=== PATIENT | male | born 1990 | race African-American/Black ===

== ENCOUNTER 2021-09-02 08:34 | Emergency (ER) | payer OTHER ==
[~2021-09-02] VITALS: Ht 175.3 cm; Wt 81.6 kg
[2021-09-02] MEDS ORDERED: MORPHINE SULFATE 4 MG/ML SYR/VIAL IV ONE (09:30)
[2021-09-02] MEDS ORDERED: ONDANSETRON HCL 4 MG/2 ML VIAL IV ONE (09:30)
[2021-09-02] MEDS ORDERED: LORazepam 2MG/ML-1ML VIAL IV ONE ×2 (09:30→10:30)
[2021-09-02] MEDS ORDERED: SODIUM CHLORIDE 0.9% 1,000 ML IV ONE (09:30)
[2021-09-02] MEDS ORDERED: MORPHINE SULFATE INJECTION 2 MG/ML SYRG IV ONE (10:30)
[2021-09-02 11:12] VITALS: BP 111/77
== END 2021-09-02 11:16 | disposition home or self-care (01) ==
LOC: ER 08:34
DX: R51.9 Headache, unspecified (principal); Z88.8 Allergy status to other drugs, medicaments and biological substances
CPT/HCPCS: 82962; 96361; 96374; 96375; 96376; 99285; J2060; J2270; J2405; J7030

== ENCOUNTER 2021-11-30 07:33 | Emergency (ER) | payer OTHER ==
[2021-11-30 08:14] LABS: Basophils # (auto) 0 10 ^3/uL (0-0.2); Basophils % (auto) 0.2 % (0.0-2.0); Eosinophils # (auto) 0 10 ^3/uL (0-0.8); Eosinophils % (auto) 0.1 % (0.0-7.0); Lymphocytes # (auto) 0.3 10 ^3/uL (0.4-5.4); Monocytes # (auto) 0.2 10 ^3/uL (0-1.3); Red Cell Distribution Width 18.4 % (11.8-14.3); White Blood Cell 6.3 10^3/uL (4.4-10.8)
[2021-11-30 08:16] LABS: Hemoglobin 11.8 g/dL (13.5-17.5); Lymphocytes % (auto) 4.7 % (10.0-50.0); Mean Corpuscular Hemoglobin 21.5 pg (28.0-32.0); Mean Corpuscular Hgb Conc. 30.4 g/dL (32.0-36.0); Mean Corpuscular Volume 70.7 fL (80.0-100.0); Monocytes % (auto) 2.4 % (0.0-12.0); Neutrophils # (auto) 5.8 10 ^3/uL (1.6-8.6); Neutrophils % (auto) 92.6 % (37.0-80.0); Nucleated Red Blood Cells % 0.1 %; Red Blood Cells 5.52 10^6/uL (4.5-5.90)
[2021-11-30 08:33] LABS: Albumin 4.1 g/dL (3.4-5.0); Calcium 9.6 mg/dL (8.5-10.1)
[2021-11-30 08:36] LABS: BUN/Creatinine Ratio 13.1; Bilirubin, Total 0.5 mg/dL (0.2-1.0); Total Protein 9.6 g/dL (6.4-8.2)
[2021-11-30] MEDS ORDERED: ONDANSETRON HCL 4 MG/2 ML VIAL IV ONE ×2 (17:15→20:30)
[2021-11-30] MEDS ORDERED: LORazepam 2MG/ML-1ML VIAL IV ONE (17:15)
[2021-11-30] MEDS ORDERED: HYDROcodone-ACET 10/325MG TAB PO ONE (17:15)
[2021-11-30] MEDS ORDERED: LORazepam 0.5 MG TAB PO ONE (17:30)
[2021-11-30] MEDS ORDERED: fentaNYL CITRATE 100 MCG/2 ML VL IV ONE (20:30)
[2021-11-30] MEDS ORDERED: HYDR-4798 PO (20:51)
[2021-11-30 21:14] VITALS: BP 115/77
== END 2021-11-30 21:27 | disposition home or self-care (01) ==
LOC: ER 07:33
DX: K52.9 Noninfective gastroenteritis and colitis, unspecified (principal); R51.9 Headache, unspecified; C71.7 Malignant neoplasm of brain stem
CPT/HCPCS: 36415; 70450; 74176; 80053; 85025; 96374; 96375; 96376; 99285; J2405; J3010

== ENCOUNTER 2022-01-25 07:08 | Inpatient (IN) | payer OTHER ==
[~2022-01-25] VITALS: Ht 185.4 cm; Wt 78.2 kg
[2022-01-25] VITALS (7 sets, daily range): BP systolic 126–165; BP diastolic 76–92
[~2022-01-25 07:08] MED LIST: HYDR-4798 PO
[2022-01-25 08:46] LABS: Albumin 4.2 g/dL (3.4-5.0); Calcium 9.5 mg/dL (8.5-10.1); Potassium 3.9 mmol/L (3.5-5.1)
[2022-01-25 09:00] LABS: Basophils # (auto) 0 10 ^3/uL (0-0.2); Eosinophils # (auto) 0 10 ^3/uL (0-0.8); Eosinophils % (auto) 0.1 % (0.0-7.0); Hemoglobin 12.1 g/dL (13.5-17.5); Neutrophils # (auto) 5.4 10 ^3/uL (1.6-8.6); White Blood Cell 6.4 10^3/uL (4.4-10.8)
[2022-01-25] MEDS ORDERED: LORazepam 2MG/ML-1ML VIAL IV ONE (09:00)
[2022-01-25] MEDS ORDERED: MORPHINE SULFATE 4 MG/ML SYR/VIAL IV ONE ×2 (09:00→12:00)
[2022-01-25 09:01] LABS: BUN/Creatinine Ratio 12.5; Bilirubin, Total 0.4 mg/dL (0.2-1.0); Total Protein 8.5 g/dL (6.4-8.2)
[2022-01-25 09:02] LABS: Basophils % (auto) 0.5 % (0.0-2.0); Hematocrit 38.1 % (41.0-53.0); Lymphocytes # (auto) 0.6 10 ^3/uL (0.4-5.4); Lymphocytes % (auto) 9.5 % (10.0-50.0); Mean Corpuscular Hemoglobin 23.1 pg (28.0-32.0); Mean Corpuscular Hgb Conc. 31.7 g/dL (32.0-36.0); Mean Corpuscular Volume 73.1 fL (80.0-100.0); Monocytes # (auto) 0.3 10 ^3/uL (0-1.3); Monocytes % (auto) 5.3 % (0.0-12.0); Neutrophils % (auto) 84.6 % (37.0-80.0); Nucleated Red Blood Cells % 0.2 %; Red Blood Cells 5.21 10^6/uL (4.5-5.90); Red Cell Distribution Width 19.6 % (11.8-14.3)
[2022-01-25] MEDS ORDERED: PANTOPRAZOLE 40 MG/10 ML VIAL INJ IV ONE (10:15)
[2022-01-25] MEDS ORDERED: LORazepam 2MG/ML-1ML VIAL IM ONE (12:00)
[2022-01-25] MEDS ORDERED: MORPHINE SULFATE INJ 2 MG/ml SYRG IV PRN (13:45)
[2022-01-25] MEDS ORDERED: NITROGLYCERIN 0.4 MG SL TAB SL PRN (13:45)
[2022-01-25] MEDS: metroNIDAZOLE 500MG/100ML 100 ML IV SCH ×2 (14:15→22:35)
[2022-01-25] MEDS: SODIUM CHLORIDE 0.9% 1,000 ML IV SCH (14:17)
[2022-01-25] MEDS ORDERED: ALPRAZolam 0.5 MG TAB PO PRN (16:00)
[2022-01-25] MEDS ORDERED: MIDAZOLAM HCL 2MG/2ML 2ml VIAL (1mg/ml) IV PRN (16:00)
[2022-01-25] MEDS: LORazepam 2MG/ML-1ML VIAL IV PRN ×2 (16:25→20:06)
[2022-01-25] MEDS: MORPHINE SULFATE INJ 2 MG/ml SYRG IV PRN ×2 (16:26→21:13)
[2022-01-25 16:34] LABS: Urine Bacteria NONE SEEN /hpf (None Seen); Urine Blood Negative /uL (Negative); Urine Mucus FEW (None Seen); Urine Sperm PRESENT /hpf (None Seen); Urine WBC <1 /hpf (0 - 3)
[2022-01-25 16:38] LABS: Urine Specific Gravity > 1.050 (1.001-1.035)
[2022-01-25 16:49] LABS: Cholesterol 138 mg/dL (< 200); HDL Cholesterol 55 mg/dL (40-59); LDL Cholesterol 76 mg/dL (< 100); Triglycerides 85 mg/dL (< 150)
[2022-01-25 17:01] LABS: Amphetamine Screen, Urine NEGATIVE (NEGATIVE); Barbiturate Scree,Urine NEGATIVE (NEGATIVE); Benzodiazephine Screen, Urine POSITIVE (NEGATIVE); Cannabinoid Screen, Urine NEGATIVE (NEGATIVE); Cocaine Screen, Urine NEGATIVE (NEGATIVE); Phencyclidine Screen, Urine NEGATIVE (NEGATIVE)
[2022-01-25 17:09] LABS: Opiate Scree,Urine POSITIVE (NEGATIVE)
[2022-01-25 18:36] LABS: Hemoglobin 11.2 g/dL (13.5-17.5)
[2022-01-25 18:37] LABS: Hematocrit 36.8 % (41.0-53.0)
[2022-01-25] MEDS: ONDANSETRON HCL 4 MG/2 ML VIAL IV PRN (19:58)
[2022-01-25] MEDS: ATORVASTATIN 20 MG TAB PO SCH (22:00)
[2022-01-25] MEDS: PANTOPRAZOLE 40 MG/10 ML VIAL INJ IV SCH (22:35)
[2022-01-26] VITALS (30 sets, daily range): BP systolic 116–154; BP diastolic 54–104
[2022-01-26] MEDS: ONDANSETRON HCL 4 MG/2 ML VIAL IV PRN ×4 (00:53→14:17)
[2022-01-26] MEDS: MORPHINE SULFATE INJ 2 MG/ml SYRG IV PRN ×5 (00:54→19:59)
[2022-01-26] MEDS: LORazepam 2MG/ML-1ML VIAL IV PRN ×6 (02:04→21:18)
[2022-01-26] MEDS: SODIUM CHLORIDE 0.9% 1,000 ML IV SCH ×3 (03:39→15:41)
[2022-01-26 05:00] LABS: Basophils # (auto) 0 10 ^3/uL (0-0.2); Basophils % (auto) 0.1 % (0.0-2.0); Eosinophils # (auto) 0 10 ^3/uL (0-0.8); Hematocrit 41.6 % (41.0-53.0); Hemoglobin 12.4 g/dL (13.5-17.5); Lymphocytes # (auto) 1.4 10 ^3/uL (0.4-5.4); Mean Corpuscular Hgb Conc. 29.8 g/dL (32.0-36.0); Mean Corpuscular Volume 77.4 fL (80.0-100.0); Monocytes # (auto) 0.6 10 ^3/uL (0-1.3); Neutrophils # (auto) 5.6 10 ^3/uL (1.6-8.6); Neutrophils % (auto) 73.9 % (37.0-80.0); Nucleated Red Blood Cells % 0.1 %; Red Blood Cells 5.38 10^6/uL (4.5-5.90); Red Cell Distribution Width 19.8 % (11.8-14.3); White Blood Cell 7.6 10^3/uL (4.4-10.8)
[2022-01-26 05:10] LABS: Albumin 3.6 g/dL (3.4-5.0); BUN/Creatinine Ratio 16.4; Calcium 8.5 mg/dL (8.5-10.1); Potassium 4.1 mmol/L (3.5-5.1)
[2022-01-26 05:13] LABS: Bilirubin, Total 0.4 mg/dL (0.2-1.0)
[2022-01-26] MEDS: metroNIDAZOLE 500MG/100ML 100 ML IV SCH ×3 (05:16→21:17)
[2022-01-26] MEDS ORDERED: NICOTINE 7MG/24HR TOPICAL PATCH TD SCH (10:00)
[2022-01-26] MEDS: PANTOPRAZOLE 40 MG/10 ML VIAL INJ IV SCH ×2 (10:51→21:17)
[2022-01-26] MEDS: ATORVASTATIN 20 MG TAB PO SCH (22:00)
[2022-01-27] VITALS: BP 125/79
[2022-01-27] MEDS: MORPHINE SULFATE INJ 2 MG/ml SYRG IV PRN (00:58)
[2022-01-27 01:00] VITALS: BP 129/78
[2022-01-27 02:05] VITALS: BP 163/96
== END 2022-01-27 02:00 | disposition left against medical advice (07) | DRG 378 ==
LOC: ER 07:08 → TELE 13:44 → DOU IN ICU 21:50
PROVIDERS: ADMIT Registered Nurse; ATTEND Internal Medicine
DX: K92.2 Gastrointestinal hemorrhage, unspecified (principal); G45.9 Transient cerebral ischemic attack, unspecified; Z20.822 Contact with and (suspected) exposure to COVID-19; G89.4 Chronic pain syndrome; F41.9 Anxiety disorder, unspecified; Z53.29 Procedure and treatment not carried out because of patient's decision for other reasons; Z79.899 Other long term (current) drug therapy; Z85.841 Personal history of malignant neoplasm of brain; Z91.041 Radiographic dye allergy status; Z92.21 Personal history of antineoplastic chemotherapy; Z92.3 Personal history of irradiation; Z88.8 Allergy status to other drugs, medicaments and biological substances; Z72.0 Tobacco use; D64.9 Anemia, unspecified
CPT/HCPCS: 36415; 70450; 71275; 80053; 80061; 80307; 81001; 84484; 85014; 85018; 85025; 86850; 86900; 86901; 87081; 93005; 93306; 93886; 96361; 96374; 96375; C9113; G0378; J2405; J3490

== ENCOUNTER 2023-11-10 01:16 | Inpatient (IN) | payer OTHER ==
[~2023-11-10] VITALS: Ht 175.3 cm; Wt 69.4 kg
[2023-11-10 02:51] LABS: Basophils # (auto) 0 10 ^3/uL (0-0.2); Basophils % (auto) 0.6 % (0.0-2.0); Eosinophils # (auto) 0 10 ^3/uL (0-0.8); Eosinophils % (auto) 0.1 % (0.0-7.0); Hematocrit 42.3 % (41.0-53.0); Hemoglobin 13.5 g/dL (13.5-17.5); Lymphocytes # (auto) 1.3 10 ^3/uL (0.4-5.4); Lymphocytes % (auto) 18.2 % (10.0-50.0); Mean Corpuscular Hemoglobin 27.4 pg (28.0-32.0); Mean Corpuscular Hgb Conc. 31.8 g/dL (32.0-36.0); Monocytes # (auto) 0.6 10 ^3/uL (0-1.3); Monocytes % (auto) 8.6 % (0.0-12.0); Neutrophils % (auto) 72.5 % (37.0-80.0); Nucleated Red Blood Cells % 0.1 %; Red Blood Cells 4.92 10^6/uL (4.5-5.90); Red Cell Distribution Width 17.8 % (11.8-14.3); White Blood Cell 6.9 10^3/uL (4.4-10.8)
[2023-11-10] MEDS: ONDANSETRON ODT 4 MG TAB PO ONE (02:57)
[2023-11-10 03:05] LABS: Chloride 104 mmol/L (98-107); Potassium 4.1 mmol/L (3.5-5.1); Sodium 137 mmol/L (136-145)
[2023-11-10 03:06] LABS: Anion Gap 10 (5-15); Calcium 10.5 mg/dL (8.7-10.4); Carbon Dioxide 23 mmol/L (20-30)
[2023-11-10 03:11] LABS: BUN/Creatinine Ratio 16.7 (10.0-20.0); Blood Urea Nitrogen 20 mg/dL (9-23); Glucose 86 mg/dL (74-106)
[2023-11-10] MEDS: MORPHINE SULFATE 4 MG/ML SYR/VIAL IV ONE (07:51)
[2023-11-10] MEDS ORDERED: DOCUSATE SOD 100 MG CAP PO PRN (09:00)
[2023-11-10] MEDS ORDERED: ONDANSETRON HCL 4 MG/2 ML VIAL IV PRN (09:00)
[2023-11-10] MEDS ORDERED: MORPHINE SULFATE INJ 2 MG/ml SYRG IV PRN (09:45)
[2023-11-10] MEDS ORDERED: NITROGLYCERIN 0.4 MG SL TAB SL PRN (09:45)
[2023-11-10] MEDS: SODIUM CHLORIDE 0.9% 1,000 ML IV SCH ×2 (10:09→16:32)
[2023-11-10] MEDS: PANTOPRAZOLE 40 MG/10 ML VIAL INJ IV ONE (10:09)
[2023-11-10] MEDS: HYDROmorphone HCL 2 MG/ML VL/or syr IV ONE (10:12)
[2023-11-10 10:27] VITALS: PULSE 56; RESP 18; O2SAT 95
[2023-11-10 11:20] VITALS: BP 101/71; PULSE 51; RESP 16; TEMP 98.1; O2SAT 98
[2023-11-10] MEDS: LORazepam 0.5 MG TAB PO ONE (11:52)
[2023-11-10 13:00] VITALS: BP 96/62; PULSE 48; RESP 16; TEMP 97.5; O2SAT 99
[2023-11-10] MEDS ORDERED: ALPR2TAB6 PO (13:02)
[2023-11-10] MEDS ORDERED: PANT40T PO (13:02)
[2023-11-10] MEDS ORDERED: OLAN10TA40 PO (13:02)
[2023-11-10] MEDS ORDERED: OXYC30TA PO (13:02)
[2023-11-10] MEDS ORDERED: CYCL-611 PO (13:02)
[2023-11-10] MEDS: SODIUM CHLORIDE 0.9% 1,000 ML IV ONE (14:45)
[2023-11-10 15:47] LABS: Hematocrit 39.6 % (41.0-53.0); Hemoglobin 12.7 g/dL (13.5-17.5)
[2023-11-10 17:00] VITALS: BP 91/46; PULSE 48; RESP 16; TEMP 97.5; O2SAT 99
[2023-11-10] MEDS ORDERED: MET50T PO (17:02)
[2023-11-10] MEDS ORDERED: FENT100D2 TD (17:12)
[2023-11-10 19:45] LABS: Basophils # (auto) 0.1 10 ^3/uL (0-0.2); Basophils % (auto) 1.1 % (0.0-2.0); Eosinophils # (auto) 0 10 ^3/uL (0-0.8); Eosinophils % (auto) 0.5 % (0.0-7.0); Hematocrit 36.3 % (41.0-53.0); Hemoglobin 11.5 g/dL (13.5-17.5); Lymphocytes # (auto) 2.1 10 ^3/uL (0.4-5.4); Mean Corpuscular Hemoglobin 27.3 pg (28.0-32.0); Mean Corpuscular Hgb Conc. 31.8 g/dL (32.0-36.0); Mean Corpuscular Volume 85.9 fL (80.0-100.0); Monocytes # (auto) 0.5 10 ^3/uL (0-1.3); Monocytes % (auto) 10.5 % (0.0-12.0); Neutrophils # (auto) 2.4 10 ^3/uL (1.6-8.6); Neutrophils % (auto) 46.9 % (37.0-80.0); Nucleated Red Blood Cells % 0.1 %; Red Blood Cells 4.22 10^6/uL (4.5-5.90); Red Cell Distribution Width 17.6 % (11.8-14.3); White Blood Cell 5.1 10^3/uL (4.4-10.8)
[2023-11-10 20:13] LABS: Alanine Aminotransferase 10 U/L (7-40); Albumin 3.9 g/dL (3.2-4.8); Alkaline Phosphatase 61 U/L (46-116); Anion Gap 7 (5-15); Aspartate Aminotransferase 11 U/L (13-40); BUN/Creatinine Ratio 13.6 (10.0-20.0); Bilirubin, Total 0.8 mg/dL (0.2-1.0); Blood Urea Nitrogen 16 mg/dL (9-23); Calcium 9.1 mg/dL (8.5-10.1); Carbon Dioxide 24 mmol/L (20-30); Chloride 108 mmol/L (98-107); Glucose 102 mg/dL (74-106); Potassium 3.3 mmol/L (3.5-5.1); Sodium 139 mmol/L (136-145); Total Protein 6.5 g/dL (5.7-8.2)
[2023-11-10 21:00] VITALS: BP 87/47; PULSE 50; RESP 18; TEMP 97.6; O2SAT 99
[2023-11-10] MEDS: HYDROmorphone HCL 2 MG/ML VL/or syr IV PRN (21:11)
[2023-11-11 01:00] VITALS: BP 86/41; PULSE 51; RESP 18; TEMP 97.4; O2SAT 97
[2023-11-11] MEDS: PANTOPRAZOLE 40 MG/10 ML VIAL INJ IV SCH (02:36)
[2023-11-11 05:00] VITALS: BP 87/57; PULSE 53; RESP 19; TEMP 97.4; O2SAT 100
[2023-11-11 06:25] LABS: Basophils # (auto) 0.1 10 ^3/uL (0-0.2); Basophils % (auto) 1.9 % (0.0-2.0); Eosinophils # (auto) 0.1 10 ^3/uL (0-0.8); Eosinophils % (auto) 1.7 % (0.0-7.0); Hematocrit 35.6 % (41.0-53.0); Hemoglobin 11.8 g/dL (13.5-17.5); Lymphocytes # (auto) 1.7 10 ^3/uL (0.4-5.4); Mean Corpuscular Hemoglobin 28.9 pg (28.0-32.0); Mean Corpuscular Hgb Conc. 33.1 g/dL (32.0-36.0); Mean Corpuscular Volume 87.2 fL (80.0-100.0); Monocytes # (auto) 0.4 10 ^3/uL (0-1.3); Monocytes % (auto) 12.8 % (0.0-12.0); Neutrophils # (auto) 1.1 10 ^3/uL (1.6-8.6); Neutrophils % (auto) 32.6 % (37.0-80.0); Nucleated Red Blood Cells % 0.2 %; Red Blood Cells 4.07 10^6/uL (4.5-5.90); White Blood Cell 3.3 10^3/uL (4.4-10.8)
[2023-11-11 06:39] LABS: INR 1.14 (0.9-1.15)
[2023-11-11 06:44] LABS: Alkaline Phosphatase 56 U/L (46-116); Anion Gap 7 (5-15); BUN/Creatinine Ratio 12.8 (10.0-20.0); Blood Urea Nitrogen 14 mg/dL (9-23); Calcium 8.7 mg/dL (8.5-10.1); Carbon Dioxide 25 mmol/L (20-30); Chloride 107 mmol/L (98-107); Glucose 75 mg/dL (74-106); Potassium 3.8 mmol/L (3.5-5.1); Sodium 139 mmol/L (136-145)
[2023-11-11 06:45] LABS: Alanine Aminotransferase < 9 U/L (7-40); Albumin 3.6 g/dL (3.2-4.8); Aspartate Aminotransferase 10 U/L (13-40); Bilirubin, Total 0.8 mg/dL (0.2-1.0); Total Protein 5.9 g/dL (5.7-8.2)
[2023-11-11 08:00] VITALS: PULSE 59; RESP 17; O2SAT 99
[2023-11-11 09:00] VITALS: BP 91/58; PULSE 54; RESP 17; TEMP 97.6; O2SAT 99
[2023-11-11 11:14] VITALS: BP 95/58; PULSE 55; RESP 17
[2023-11-11] MEDS: MORPHINE SULFATE INJ 2 MG/ml SYRG IV PRN (11:14)
== END 2023-11-11 12:48 | disposition left against medical advice (07) | DRG 378 ==
LOC: ER 01:16 → OVERFLOW 09:42 → EAST 11:25
PROVIDERS: ADMIT Nurse Practitioner Family; ATTEND Internal Medicine Geriatric Medicine
DX: K92.2 Gastrointestinal hemorrhage, unspecified (principal); C41.9 Malignant neoplasm of bone and articular cartilage, unspecified; D62 Acute posthemorrhagic anemia; F41.1 Generalized anxiety disorder; I10 Essential (primary) hypertension; E87.6 Hypokalemia; R56.9 Unspecified convulsions; F17.210 Nicotine dependence, cigarettes, uncomplicated; Z53.29 Procedure and treatment not carried out because of patient's decision for other reasons; M54.9 Dorsalgia, unspecified; Z85.841 Personal history of malignant neoplasm of brain; Z88.6 Allergy status to analgesic agent; Z88.8 Allergy status to other drugs, medicaments and biological substances; Z91.09 Other allergy status, other than to drugs and biological substances; Z79.899 Other long term (current) drug therapy; Z79.891 Long term (current) use of opiate analgesic; Z86.73 Personal history of transient ischemic attack (TIA), and cerebral infarction without residual deficits; Z91.041 Radiographic dye allergy status
CPT/HCPCS: 36415; 70450; 71046; 74176; 80048; 80053; 84484; 85014; 85018; 85025; 85610; 93005; 96361; 96374; 96375; 99291; C9113; G0378; Q0162

== ENCOUNTER 2024-05-19 12:04 | Emergency (ER) | payer OTHER ==
[~2024-05-19] VITALS: Ht 182.9 cm; Wt 79.0 kg
[~2024-05-19 12:04] MED LIST changes: +ALPR2TAB6 PO; +CYCL-611 PO; +FENT100D2 TD; -HYDR-4798 PO; +MET50T PO; +OLAN10TA40 PO; +OXYC30TA PO; +PANT40T PO
--- NOTE | 2024-05-19 13:29 | DVH ---
CT HEAD WITHOUT CONTRAST INDICATION: h/o brain ca EXAM DATE: 05/19/2024 01:06 PM COMPARISON: CT HEAD WITHOUT CONTRAST on DOS: 11/10/23, HEAD WITHOUT CONTRAST on DOS: 01/26/22, HEAD WIT HOUT CONTRAST on DOS: 01/25/22 RADIATION DOSE: CTDIvol: 56.73 mGy, DLP: 909.45 mGy*cm PROCEDURE: CT scans of the head were obtained from the vertex to the skull base. Sagittal and coronal reconstructions were provided. All CT scans at this medical facility are performed using dose modulation techniques as appropriate t o a performed exam including the following: Automated exposure control was utilized; adjustment of th e MA and/or KV according to patient size; and use of iterative reconstruction technique. FINDINGS: Post surgical changes from left occipital craniectomy, mastoidectomy and including the julisa ous bone. Metallic material is seen near the left jugular foramen. There is sulcal and ventricular p rominence. The brain shows normal morphology and dailey-white matter differentiation, without intracran ial hemorrhage, extra-axial fluid collection, mass effect or acute large vessel infarct. The ventricl es are normal in size. The basal cisterns are patent. The skull and visible facial bones are intact. The paranasal sinuses, mastoid air cells and middle ear cavities are otherwise well-aerated. The soft tissues of the scalp are unremarkable. IMPRESSION: Stable post surgical changes from left occipital craniectomy, mastoidectomy and including the petrous bone. Metallic material is seen near the left jugular foramen. No acute intracranial abnormality.
[2024-05-19 13:54] LABS: Basophils # (auto) 0.1 10 ^3/uL (0-0.2); Basophils % (auto) 1.2 % (0.0-2.0); Eosinophils # (auto) 0 10 ^3/uL (0-0.8); Eosinophils % (auto) 0.3 % (0.0-7.0); Hematocrit 44.6 % (41.0-53.0); Hemoglobin 14.4 g/dL (13.5-17.5); Lymphocytes # (auto) 1.3 10 ^3/uL (0.4-5.4); Lymphocytes % (auto) 19.9 % (10.0-50.0); Mean Corpuscular Hemoglobin 28.3 pg (28.0-32.0); Mean Corpuscular Hgb Conc. 32.3 g/dL (32.0-36.0); Mean Corpuscular Volume 87.6 fL (80.0-100.0); Monocytes # (auto) 0.7 10 ^3/uL (0-1.3); Monocytes % (auto) 10.8 % (0.0-12.0); Neutrophils # (auto) 4.4 10 ^3/uL (1.6-8.6); Neutrophils % (auto) 67.8 % (37.0-80.0); Nucleated Red Blood Cells % 0.2 %; Platelet Count (auto) 307 10^3/uL (140-450); Red Blood Cells 5.09 10^6/uL (4.5-5.90); Red Cell Distribution Width 16.4 % (11.8-14.3); White Blood Cell 6.5 10^3/uL (4.4-10.8)
[2024-05-19 13:58] LABS: Urine Bacteria None Seen /hpf (None Seen)
[2024-05-19 14:14] LABS: Alanine Aminotransferase 17 U/L (7-40); Albumin 4.8 g/dL (3.2-4.8); Alkaline Phosphatase 95 U/L (46-116); Aspartate Aminotransferase 25 U/L (13-40); BUN/Creatinine Ratio 5.5 (10.0-20.0); Calcium 10.3 mg/dL (8.7-10.4); Carbon Dioxide 28 mmol/L (20-31); Glucose 80 mg/dL (74-106); Magnesium 2.2 mg/dL (1.6-2.6)
[2024-05-19 14:15] LABS: Bilirubin, Total 0.5 mg/dL (0.2-1.0); Total Protein 8.1 g/dL (5.7-8.2)
[2024-05-19 14:17] LABS: Urine Blood Negative /uL (Negative); Urine Clarity Clear (Clear); Urine Color Colorless (Yellow); Urine Protein, UAD Negative (Negative); Urine Specific Gravity 1.005 (1.001-1.035); Urine Squamous Epithelial Cell None Seen /hpf (<5); Urine Urobilinogen Normal (Negative); Urine WBC 1 /hpf (0 - 3)
[2024-05-19 14:24] LABS: Benzodiazephine Screen, Urine Neg (NEGATIVE)
[2024-05-19 14:25] LABS: Opiate Scree,Urine Neg (NEGATIVE)
[2024-05-19 14:26] LABS: Anion Gap 6 (5-15); Chloride 104 mmol/L (98-107); Potassium 4.5 mmol/L (3.5-5.1); Sodium 138 mmol/L (136-145)
[2024-05-19 14:27] LABS: Amphetamine Screen, Urine Neg (NEGATIVE); Barbiturate Scree,Urine Neg (NEGATIVE); Cannabinoid Screen, Urine Neg (NEGATIVE); Cocaine Screen, Urine Neg (NEGATIVE); Phencyclidine Screen, Urine Neg (NEGATIVE)
[2024-05-19 14:27] LABS: Blood Urea Nitrogen 6 mg/dL (9-23)
--- NOTE | 2024-05-19 15:06 | ED.PDOC ---
History of Present Illness HPI Comments HPI: Poor Historian. : 33 Y M, with PMHX of brain, throat, and mouth cancer presents to the ED with CC of withdrawal. Per patient, he has ran out of his current medications Xanax 2mg, oxycodone 30mg, Lyrica 75mg and has been having associated symptoms of nausea and vomiting x1 day. Patient states,that his me dications are prescribed through [facility]; and has experienced similar symptoms in the past when his medications have ran out. Patient denies fever, chills, body aches, or diarrhea. Initial Vital Signs: Temp :97.8 BP:132/90 HR:85 RR:20 SpO2: 96 Past Medical History: brain cancer, throat cancer, mouth cancer Past Surgical History: Brain Surgery Social History: Denies smoking, ETOH, or drug use. Medications: Xanax 2mg, Oxycodone 30mg, Lyrica 75mg Allergies: NKDA REVIEW OF SYSTEMS: CONSTITUTIONAL: Denies acute: fever, diaphoresis, chills, generalized weakness. HEAD: Denies acute: headache, photophobia Eyes: Denies acute: Double vision, vision loss, eye pain, eye discharge. EARS: Denies acute: tinnitus, hearing loss, ear discharge, ear pain, THROAT: Denies acute: sore throat, swelling, difficulty swallowing , pain with swallowing, change in voice. NECK: Denies acute: neck pain, neck swelling, stiff neck. HEART: Denies acute : chest pain, palpitations, LUNGS: Denies acute: SOB, wheezing, cough, hemoptysis ABDOMEN: Denies acute: abdominal pain, diarrhea, melena , hematemesis, hematochezia SKIN: Denies acute: rash, redness, lesions, itchiness. EXTREMITIES: Denies acute: calf pain, numbness, tingling, weakness, denies pain in extremity. Denies acute: Low back pain. Neuro: Denies acute: focal neurological deficit, motor or sensory focal neurological deficit, tremors, seizure like activity, confusion, dizziness, change in mental status, loss of bowel or bladder function, cauda equina like symptoms. : Denies acute: dysuria, hematuria, flank pain, increase in urinary frequency. PSYCH: Denies acute: hallucination, suicidal ideation, homicidal ideation. PHYSICAL EXAM: General: no acute distress, awake and alert. Head: normocephalic, atraumatic. Neck: supple, trachea is midline, no swelling. Throat: Normal phonation. Eyes:, no erythema, no purulent discharge, no proptosis, no icterus. Heart: regular rate, regular rhythm, no significant murmur appreciated. Lungs: no apparent respiratory distress, Able to speak in full sentences. No wheezing, no rhonchi, no crackles. No stridors Clear to auscultation bilaterally. Abdomen: non tender to palpation, non distended, soft, no guarding, no rebound, + bowel sounds. Neuro: Awake, Alert, oriented to name, self, situation, follows commands GCS=15. Speech is normal. Skin: no petechia, no purpura, no cyanosis, non-pale, not jaundice. Lower extremities: --no - Pitting edema no deformity, no focal swelling, no calf TTP. Makes eye contact. moves all four extremities. Ambulating in the ED independently. Chief Complaint: Withdrawal Time Seen by MD: 14:45 Primary Care Provider: UNK NAME Reviewed Notes: Nurses Notes, Medications, Allergies Allergies: Coded Allergies: Acetaminophen (Verified Allergy, Unknown, 09/02/21) Diphenhydramine (Verified Allergy, Unknown, 09/02/21) Uncoded Allergies: BLEACH (Allergy, Unknown, 09/02/21) MRI CONTRAST (Allergy, Unknown, 09/02/21) Home Meds Reported Medications Fentanyl (Fentanyl) 100 Mcg/Hr Dis, 2 PATCH TD Q72HR, DIS APPLY 2 PATCHES TO SKIN ONCE EVERY 3 DAYS. CHANGE PATCH EVERY 72 HOURS AND APPLY NEW PATCHES TO DIFFERENT SKIN SITE. 11/10/23 Metoprolol Tartrate (LOPRESSOR TABLET) 50 Mg Tb, 1 TAB PO BID, TAB 11/10/23 Olanzapine (OLANZAPINE ODT) 10 Mg Tab, 1 TAB PO DAILY 11/10/23 Oxycodone HCl (Oxycodone Hydrochloride) 30 Mg Tab, 1 TAB PO Q4HPRN PRN for PAIN SCALE 1 THRU 6 11/10/23 Alprazolam (Alprazolam) 2 Mg Tab, 1 TAB PO TID PRN for ANXIETY 11/10/23 Pantoprazole Sodium Sesquihydr (Pantoprazole Sodium) 40 Mg Tab, 1 TAB PO BID 11/10/23 Cyclobenzaprine HCl (Cyclobenzaprine Hydrochlo) 10 Mg Tab, 1 TAB PO TID PRN for FOR MUSCLE SPASM 11/10/23 Information Source: Patient Mode of Arrival: Ambulatory Severity: Mild Timing: Days Duration: Intermittent Was a procedure done? Was a procedure done?: No Differential Dx Considerations may include: withdrawal X-Ray, Labs, Meds, VS Vital Signs Date Time Temp Pulse Resp B/P (MAP) Pulse Ox O2 Delivery O2 Flow Rate FiO2 05/19/24 16:16 18 99 Room Air* 0 21 05/19/24 16:00 73 18 113/85 (94) 99 05/19/24 12:46 97.8 85 20 132/90 (104) 96 Lab Test 05/19/24 13:27 05/19/24 00:00 Range/Units White Blood Count 6.5 4.4-10.8 10^3/uL Red Blood Count 5.09 4.5-5.90 10^6/uL Hemoglobin 14.4 13.5-17.5 g/dL Hematocrit 44.6 41.0-53.0 % Mean Corpuscular Volume 87.6 80.0-100.0 fL Mean Corpuscular Hemoglobin 28.3 28.0-32.0 pg Mean Corpuscular Hemoglobin Concent 32.3 32.0-36.0 g/dL Red Cell Distribution Width 16.4 H 11.8-14.3 % Platelet Count 307 140-450 10^3/uL Mean Platelet Volume 9.2 6.9-10.8 fL Neutrophils (%) (Auto) 67.8 37.0-80.0 % Lymphocytes (%) (Auto) 19.9 10.0-50.0 % Monocytes (%) (Auto) 10.8 0.0-12.0 % Eosinophils (%) (Auto) 0.3 0.0-7.0 % Basophils (%) (Auto) 1.2 0.0-2.0 % Neutrophils # (Auto) 4.4 1.6-8.6 10 ^3/uL Lymphocytes # (Auto) 1.3 0.4-5.4 10 ^3/uL Monocytes # (Auto) 0.7 0-1.3 10 ^3/uL Eosinophils # (Auto) 0 0-0.8 10 ^3/uL Basophils # (Auto) 0.1 0-0.2 10 ^3/uL Nucleated Red Blood Cells 0.2 % Sodium Level 138 136-145 mmol/L Potassium Level 4.5 3.5-5.1 mmol/L Chloride Level 104 98-107 mmol/L Carbon Dioxide Level 28 20-31 mmol/L Anion Gap 6 5-15 Blood Urea Nitrogen 6 L 9-23 mg/dL Creatinine 1.09 0.700-1.30 mg/dL Glomerular Filtration Rate Calc 91 >90 mL/min BUN/Creatinine Ratio 5.5 L 10.0-20.0 Serum Glucose 80 74-106 mg/dL Lactic Acid Level 1.2 0.4-2.0 mmol/L Calcium Level 10.3 8.7-10.4 mg/dL Magnesium Level 2.2 1.6-2.6 mg/dL Total Bilirubin 0.5 0.2-1.0 mg/dL Aspartate Amino Transferase (AST) 25 13-40 U/L Alanine Aminotransferase (ALT) 17 7-40 U/L Alkaline Phosphatase 95 46-116 U/L Total Protein 8.1 5.7-8.2 g/dL Albumin 4.8 3.2-4.8 g/dL Urine Color Colorless Yellow Urine Clarity Clear Clear Urine pH 7.0 5.0-9.0 Urine Specific [place] 1.005 1.001-1.035 Urine Protein Negative Negative Urine Ketones Negative Negative Urine Blood Negative Negative /uL Urine Nitrite Negative Negative Urine Bilirubin Negative Negative Urine Urobilinogen Normal Negative mg/dL Urine Leukocyte Esterase Negative Negative /uL Urine RBC 3 0 - 3 /hpf Urine WBC 1 0 - 3 /hpf Urine Squamous Epithelial Cells None seen <5 /hpf Urine Bacteria None seen None Seen /hpf Urine Glucose Normal Normal mg/dL Urine Opiates Screen Neg NEGATIVE Urine Fentanyl Screen Pos NEGATIVE Urine Barbiturates Screen Neg NEGATIVE Urine Phencyclidine Screen Neg NEGATIVE Urine Amphetamines Screen Neg NEGATIVE Urine Benzodiazepines Screen Neg NEGATIVE Urine Cocaine Screen Neg NEGATIVE Urine Cannabinoids Screen Neg NEGATIVE Current Medications Medications (Trade) Dose Ordered Sig/[place] Route Start Time Stop Time Status Last Admin Sodium Chloride 1,000 ml @ 1,000 mls/hr Q1H ONCE IV 05/19/24 13:15 05/19/24 14:14 DC 05/19/24 16:09 Ondansetron HCl (Zofran) 8 mg ONCE ONCE IV 05/19/24 13:15 05/19/24 13:16 DC 05/19/24 16:09 Alprazolam (Xanax Tablet) 1 mg ONCE ONCE PO 05/19/24 15:30 05/19/24 15:42 DC 05/19/24 16:10 Pregabalin (Lyrica Capsule) 75 mg ONCE ONCE PO 05/19/24 15:30 05/19/24 15:42 DC 05/19/24 16:09 [place] [address] Ph: [phone] DIAGNOSTIC IMAGING Diagnostic Imaging Report : [id number] Signed PATIENT: HUNTER ANG,WILLIEACCT: [id number] UNIT: [id number] : 1990 LOC: ER ROOM / BED: / AGE / SEX: 33 / M ADM STATUS: REG ER SERVICE 1304 ORDERING PHYSICIAN: ROLANDA ABEL DO PROCEDURE(s): HWOCT - HEAD WITHOUT CONTRAST REASON: h/o brain ca ORDER NUMBER(s): [id number], ACCESSION NUMBER(s): [id number] CT HEAD WITHOUT CONTRAST INDICATION: h/o brain ca EXAM DATE: 05/19/2024 01:06 PM COMPARISON: CT HEAD WITHOUT CONTRAST on DOS: 11/10/23, HEAD WITHOUT CONTRAST on DOS: 01/26/22, HEAD WITHOUT CONTRAST on DOS: 01/25/22 RADIATION DOSE: CTDIvol: 56.73 mGy, DLP: 909.45 mGy*cm PROCEDURE: CT scans of the head were obtained from the vertex to the skull base. Sagittal and coronal reconstructions were provided. All CT scans at this medical facility are performed using dose modulation techniques as appropriate to a performed exam including the following: Automated exposure control was utilized; adjustment of the MA and/or KV according to patient size; and use of iterative reconstruction technique. FINDINGS: Post surgical changes from left occipital craniectomy, mastoidectomy and including the petrous bone. Metallic material is seen near the left jugular foramen. There is sulcal and ventricular prominence. The brain shows normal morphology and dailey-white matter differentiation, without intracranial hemorrhage, extra-axial fluid collection, mass effect or acute large vessel infarct. The ventricles are normal in size. The basal cisterns are patent. The skull and visible facial bones are intact. The paranasal sinuses, mastoid air cells and middle ear cavities are otherwise well-aerated. The soft tissues of the scalp are unremarkable. IMPRESSION: Stable post surgical changes from left occipital craniectomy, mastoidectomy and including the petrous bone. Metallic material is seen near the left jugular foramen. No acute intracranial abnormality. ATED BY: JERMAIN WHITAKER MD DICTATED DATE/TIME: 05/19/241327 SIGNED BY: JERMAIN WHITAKER MD SIGNED DATE/TIME: 05/19/241327 CC: Time of 1ST Reevaluation: 15:25 Reevaluation 1ST: Unchanged Patient Education/Counseling: Diagnosis, Treatment Family Education/Counseling: No Family Present Additional Information [place] [address] Ph: [phone] DIAGNOSTIC IMAGING Diagnostic Imaging Report : [id number] Signed PATIENT: HUNTER ANG,SHELBIEACCT: [id number] UNIT: [id number] : 1990 LOC: ER ROOM / BED: / AGE / SEX: 33 / M ADM STATUS: REG ER SERVICE 1304 ORDERING PHYSICIAN: ROLANDA ABEL DO PROCEDURE(s): HWOCT - HEAD WITHOUT CONTRAST REASON: h/o brain ca ORDER NUMBER(s): [id number], ACCESSION NUMBER(s): [id number] CT HEAD WITHOUT CONTRAST INDICATION: h/o brain ca EXAM DATE: 05/19/2024 01:06 PM COMPARISON: CT HEAD WITHOUT CONTRAST on DOS: 11/10/23, HEAD WITHOUT CONTRAST on DOS: 01/26/22, HEAD WITHOUT CONTRAST on DOS: 01/25/22 RADIATION DOSE: CTDIvol: 56.73 mGy, DLP: 909.45 mGy*cm PROCEDURE: CT scans of the head were obtained from the vertex to the skull base. Sagittal and coronal reconstructions were provided. All CT scans at this medical facility are performed using dose modulation techniques as appropriate to a performed exam including the following: Automated exposure control was utilized; adjustment of the MA and/or KV according to patient size; and use of iterative reconstruction technique. FINDINGS: Post surgical changes from left occipital craniectomy, mastoidectomy and including the petrous bone. Metallic material is seen near the left jugular foramen. There is sulcal and ventricular prominence. The brain shows normal morphology and dailey-white matter differentiation, without intracranial h emorrhage, extra-axial fluid collection, mass effect or acute large vessel infarct. The ventricles are normal in size. The basal cisterns are patent. The skull and visible facial bones are intact. The paranasal sinuses, mastoid air cells and middle ear cavities are otherwise well-aerated. The soft tissues of the scalp are unremarkable. IMPRESSION: Stable post surgical changes from left occipital craniectomy, mastoidectomy and including the petrous bone. Metallic material is seen near the left jugular for amen. No acute intracranial abnormality. ATED BY: JERMAIN WHITAKER MD DICTATED DATE/TIME: 05/19/24 1328 SIGNED BY: JERMAIN WHITAKER MD SIGNED DATE/TIME: 05/19/24 1328 CC: Departure 1 Departure Time of Disposition: 16:15 Impression: Primary Impression: Nausea and vomiting Additional Impression: Withdrawal complaint Disposition: HOME / SELF CARE / HOMELESS Condition: Stable Additional Instructions: Additional discharge instructions: You MUST follow-up with your primary care/family doctor in 1 to 2 days. If you are unable to see your primary care/family doctor, please return to our emergency room for re-assessment and re-evaluation in 1 to 2 days. Return to the emergency room here in our facility or to the nearest ER [facility] if your symptoms change or worsen. CONSULTATIONS: you MUST Follow-up for consultation as soon as possible with: and neurology and neurosurgery. You MUST call the consultants office yourself to make an appointment. You may need to arrange that through your insurance and/or your primary/family doctor. If you are unable to see the risk management consultant in 1 to 2 days, you must return to our emergency room (or any other ER of your choice) for re-assessment and re- evaluation. Adequate fluid hydration. Below is a copy of your radiological report for follow up: Discharged With: Self Critical Care Note Critical Care Time?: No Stability Stability form required: No Heart Score Heart Score: Heart Score Response (Comments) Value History N/A 0 EKG N/A 0 Age N/A 0 Risk Factors N/A 0 Troponin N/A 0 Total 0 I personally scribed for ROLANDA ABEL DO ([email or web address]) on 05/19/24 at 15:06. Electronically submitted by Angélica Macedo ([email or web address]). I personally scribed for ROLANDA ABEL DO ([email or web address]) on 05/19/24 at 15:17. Electronically submitted by Angélica Macedo ([email or web address]). I personally scribed for ROLANDA ABEL DO ([email or web address]) on 05/19/24 at 15:18. Katelynn ctronically submitted by Angélica Macedo ([email or web address]). I personally scribed for ROLANDA ABEL DO ([email or web address]) on 05/19/24 at 16:10. Electron ically submitted by Angélica Macedo ([email or web address]). I personally scribed for ROLANDA ABEL DO ([email or web address]) on 05/19/24 at 16:12. Electronically submitted by Angélica Macedo ([email or web address]). ROLANDA ABEL DO May 19, 2024 15:06
[2024-05-19 16:00] VITALS: BP 113/85; PULSE 73
[2024-05-19] MEDS: SODIUM CHLORIDE 0.9% 1,000 ML IV ONE (16:09)
[2024-05-19] MEDS: ONDANSETRON HCL 4 MG/2 ML VIAL IV ONE (16:09)
[2024-05-19] MEDS: PREGABALIN CAPSULE 75 MG CAP PO ONE (16:09)
[2024-05-19] MEDS: ALPRAZolam 0.5 MG TAB PO ONE (16:10)
[2024-05-19 16:16] VITALS: RESP 18; O2SAT 99
[2024-05-19] MEDS: oxyCODONE ER 10 MG TAB PO ONE (17:04)
== END 2024-05-19 17:55 | disposition home or self-care (01) ==
LOC: ER 12:07
DX: F19.239 Other psychoactive substance dependence with withdrawal, unspecified (principal); R11.2 Nausea with vomiting, unspecified; R51.9 Headache, unspecified; Z79.899 Other long term (current) drug therapy; Z85.9 Personal history of malignant neoplasm, unspecified
CPT/HCPCS: 36415; 70450; 80053; 80307; 81001; 83605; 83735; 85025; 96361; 96374; 99285; J2405; J7030

== ENCOUNTER 2024-07-16 17:42 | Inpatient (IN) | payer OTHER, MEDICAID ==
[~2024-07-16] VITALS: Ht 177.8 cm; Wt 69.2 kg
[2024-07-16 18:12] LABS: Urine Bacteria None Seen /hpf (None Seen)
[2024-07-16 18:33] LABS: Urine Blood Negative /uL (Negative); Urine Clarity Clear (Clear); Urine Color Yellow (Yellow); Urine Mucus FEW (None Seen); Urine Protein, UAD 1+ (Negative); Urine Specific Gravity 1.039 (1.001-1.035); Urine Squamous Epithelial Cell None Seen /hpf (<5); Urine Urobilinogen Normal (Negative); Urine WBC 2 /HPF (0-3)
[2024-07-16 18:56] LABS: Basophils # (auto) 0 10 ^3/uL (0-0.2); Basophils % (auto) 0.1 % (0.0-2.0); Eosinophils # (auto) 0 10 ^3/uL (0-0.8); Eosinophils % (auto) 0.2 % (0.0-7.0); Hematocrit 46.3 % (41.0-53.0); Hemoglobin 14.4 g/dL (13.5-17.5); Lymphocytes # (auto) 1.3 10 ^3/uL (0.4-5.4); Lymphocytes % (auto) 10.5 % (10.0-50.0); Mean Corpuscular Hemoglobin 26.9 pg (28.0-32.0); Mean Corpuscular Hgb Conc. 31.1 g/dL (32.0-36.0); Mean Corpuscular Volume 86.8 fL (80.0-100.0); Monocytes # (auto) 0.8 10 ^3/uL (0-1.3); Monocytes % (auto) 6.7 % (0.0-12.0); Neutrophils # (auto) 10.2 10 ^3/uL (1.6-8.6); Neutrophils % (auto) 82.5 % (37.0-80.0); Nucleated Red Blood Cells % 0.2 %; Platelet Count (auto) 256 10^3/uL (140-450); Red Blood Cells 5.33 10^6/uL (4.5-5.90); Red Cell Distribution Width 17.9 % (11.8-14.3); White Blood Cell 12.3 10^3/uL (4.4-10.8)
--- NOTE | 2024-07-16 19:06 | DVH ---
EXAM: XY CHEST XRAY 1 VIEW TECHNIQUE: Single frontal chest radiograph CLINICAL HISTORY: cp COMPARISON: None Findings/Impression: Frontal chest radiograph demonstrates no acute osseous or superficial soft tissue abnormalities. The trachea is midline. The cardiac silhouette and mediastinum are within normal limits. No pneumothorax, pleural effusions, or consolidations.
--- NOTE | 2024-07-16 19:13 | DVH ---
Exam: CT CT AB PEL WO CON-NO ORAL OR IV History: hematemesis Comparison Study: CT CT AB PEL WO CON-NO ORAL OR IV on DOS: 11/10/23 Technique: Multidetector spiral CT of the abdomen was performed from lung bases to pubic symphysis. Imaging was performed without IV contrast. Axial, coronal and sagittal multiplanar reformats were ob tained from the axial data set by the technologist. Radiation Dose : 1. Abdomen/Pelvis: CTDIvol 12.5 mGy, DLP 658 mGy*cm. Findings: Evaluation of solid organs is limited due to lack of intravenous contrast use. Lung Bases: There is atelectasis/ consolidation in the right middle lobe. Minimal linear atelectasis in the left lower lobe. Visualized heart is unremarkable. Liver: The liver is normal in size. Mild focal fatty infiltration along the falciform ligament. Gallbladder and Biliary Tree: Unremarkable Spleen: Unremarkable Pancreas: The pancreas is grossly normal in appearance. Adrenal Glands: Unremarkable Kidneys: Kidneys are grossly normal without calculi or hydronephrosis. Bladder: Grossly unremarkable for degree of distention. Bowel: The stomach is grossly normal in appearance. Small bowel and colon are normal in caliber and d istribution. Mild wall thickening in the descending colon is likely related to poor distention. Ira l appendix is visualized in the right lower quadrant without findings of appendicitis. Ascites: Absent Lymphadenopathy: No mesenteric, retroperitoneal or periportal lymphadenopathy. Abdominal Wall and Mesentery: Loss of subcutaneous fat in the anterior abdominal wall in the left low er quadrant of the abdomen is unchanged and may be related to a prior procedure. Vasculature: The visualized abdominal aorta is normal in size and caliber. Evaluation of abdominal a nd pelvic vessels is limited due to lack of intravenous contrast. Pelvic Organs: Unremarkable Musculoskeletal: No aggressive focal bony lesions, acute fractures or dislocation. IMPRESSION: Evaluation is limited due to lack of intravenous contrast. 1. No evidence of acute abdominal or pelvic findings. 2. Mild atelectasis/consolidation in the right middle lobe. Radiation optimization: All CT scans at this facility use at least one of these dose optimization kishor hniques: automated exposure control mA and/or kV adjustment per patient size (includes targeted exam s where dose is matched to clinical indication) or iterative reconstruction.
[2024-07-16 19:28] LABS: Alanine Aminotransferase 17 U/L (7-40); Alkaline Phosphatase 84 U/L (46-116); Anion Gap 15 (5-15); Aspartate Aminotransferase 18 U/L (13-40); BUN/Creatinine Ratio 11.3 (10.0-20.0); Bilirubin, Total 0.7 mg/dL (0.2-1.0); Blood Urea Nitrogen 12 mg/dL (9-23); Carbon Dioxide 21 mmol/L (20-31); Glucose 87 mg/dL (74-106); Lipase 35 U/L (12-53); Sodium 143 mmol/L (136-145)
[2024-07-16 19:29] LABS: Albumin 5.3 g/dL (3.2-4.8); Calcium 10.7 mg/dL (8.7-10.4); Chloride 107 mmol/L (98-107); Potassium 3.2 mmol/L (3.5-5.1); Total Protein 8.8 g/dL (5.7-8.2)
--- NOTE | 2024-07-16 19:52 | ED.PDOC ---
GI ASSESSMENT HPI Comments 33 y.o male with PMHx of brain and neck cancer, presents to the ED for a chief complaint of dark red hematemesis associated with anxiety that started one day ago. Patient reports having about 10+ episodes of hematemesis since yesterday and is now experiencing central chest pain described as a burning and throbbing sensation. Patient reports being on palliative care for his cancer diagnoses and states he has been unable to take his medications today due to the vomiting. He denies any SOB, diarrhea, fever or chills. Patient has been seen for same complaint at this ED in May of 2023, was admitted by refused EGD and left AMA. Chief Complaint: Nausea/Vomiting Time Seen by MD: 18:30 Primary Care Provider: pt does not remember name Reviewed Notes: Nurses Notes, Medications, Allergies Allergies: Coded Allergies: Acetaminophen (Verified Allergy, Unknown, 09/02/21) Diphenhydramine (Verified Allergy, Unknown, 09/02/21) Uncoded Allergies: BLEACH (Allergy, Unknown, 09/02/21) MRI CONTRAST (Allergy, Unknown, 09/02/21) Home Meds Reported Medications Fentanyl (Fentanyl) 100 Mcg/Hr Dis, 2 PATCH TD Q72HR, DIS APPLY 2 PATCHES TO SKIN ONCE EVERY 3 DAYS. CHANGE PATCH EVERY 72 HOURS AND APPLY NEW PATCHES TO DIFFERENT SKIN SITE. 11/10/23 Metoprolol Tartrate (LOPRESSOR TABLET) 50 Mg Tb, 1 TAB PO BID, TAB 11/10/23 Olanzapine (OLANZAPINE ODT) 10 Mg Tab, 1 TAB PO DAILY 11/10/23 Oxycodone HCl (Oxycodone Hydrochloride) 30 Mg Tab, 1 TAB PO Q4HPRN PRN for PAIN SCALE 1 THRU 6 11/10/23 Alprazolam (Alprazolam) 2 Mg Tab, 1 TAB PO TID PRN for ANXIETY 11/10/23 Pantoprazole Sodium Sesquihydr (Pantoprazole Sodium) 40 Mg Tab, 1 TAB PO BID 11/10/23 Cyclobenzaprine HCl (Cyclobenzaprine Hydrochlo) 10 Mg Tab, 1 TAB PO TID PRN for FOR MUSCLE SPASM 11/10/23 Information Source: Patient Mode of Arrival: Ambulatory Timing: Days (1) Duration: Since onset Quality: Aching Vomitus: Bloody Stool: Normal Severity: Moderate Recent: None Recent Hx of: None Pain Location: Diffuse Modifying Factors: Nothing Associated sign and symptoms: Hematemesis Past Medical History PAST MEDICAL HISTORY: Cancer (brain and neck ) Surgical History (Other): brain Family History Family History: Reviewed,noncontributory to illness Social History Smoker: Cigarettes Alcohol: Denies ETOH Use Drugs: Denies Drug Use Lives In: Home Constitutional: denies: chills, diaphoresis, fatigue, fever, malaise, sweats, weakness, others EENTM: denies: blurred vision, double vision, ear bleeding, ear discharge, ear drainage, ear pain, ear ringing, eye pain, eye redness, hearing loss, mouth pain, mouth swelling, nasal discharge, nose bleeding, nose congestion, nose pain, photophobia, tearing, throat pain, throat swelling, voice changes, others Respiratory: denies: cough, hemoptysis, orthopnea, SOB at rest, shortness of breath, SOB with excertion, stridor, wheezing, others Cardiovascular: reports: chest pain; denies: dizzy spells, diaphoresis, Dyspnea on exertion, edema, irregular heart beat, left arm pain, lightheadedness, palpitations, PND, syncope, others Gastrointestinal: reports: hematemesis, nausea; denies: abdomen distended, abdominal pain, blood streaked bowels, constipated, diarrhea, dysphagia, difficulty swallowing, melena, poor appetite, poor fluid intake, rectal bleeding, rectal pain, vomiting, others Genitourinary: denies: burning, dysuria, flank pain, frequency, hematuria, incontinence, penile discharge, penile sore, pain, testicle pain, testicle swelling, urgency, others Neurological: reports: headache; denies: dizziness, fainting, left sided numbness, left sided weakness, numbness, paresthesia, pre-existing deficit, right sided numbness, right sided weakness, seizure, speech problems, tingling, tremors, weakness, others Musculoskeletal: denies: back pain, gout, joint pain, joint swelling, muscle pain, muscle stiffness, neck pain, others Integumetry: denies: bruises, change in color, change in hair/nails, dryness, laceration, lesions, lumps, rash, wounds, others Allergic/Immunocompromised: denies: Difficulty Healing, Frequent Infections, Hives, Itching, others Hematologic/Lymphatic: denies: anemia, blood clots, easy bleeding, easy bruising, swollen glands, others Endocrine: denies: excessive hunger, excessive sweating, excessive thirst, excessive urination, flushing, intolerance to cold, intolerance to heat, unexplained weight gain, unexplained weight loss, others Psychiatric: reports: anxiety; denies: bipolar disorder, depression, hopeless, panic disorder, schizophrenia, sleepless, suicidal, others All Other Systems: Reviewed and Negative Physical Exam General Appearance: Mild Distress HEENT: Other (moist mucous membranes) Neck: Full Range of Motion, Normal Inspection Respiratory: Chest Non-Tender, Lungs Clear, No Accessory Muscle Use, No Respiratory Distress, Normal Breath Sounds Cardiovascular: No Edema, No JVD, Regular Rate/Rhythm Breast Exam: Deferred Gastrointestinal: Epigastric, Soft, Tenderness Genitalia: Deferred Pelvic: Deferred Rectal: Deferred Extremities: Normal inspection, Normal range of motion, Non-tender, No pedal edema Neurologic: Alert (Oriented x4), Normal Affect, Other (Anxious. Ambulatory.) Cerebellar Function: NOT DONE Reflexes: NOT DONE Skin: Dry, Pallor, Warm Lymphatic: NOT DONE EKG EKG : Comments Sinus rhythm, rate 74, normal intervals, normal axis, possible right ventricular conduction delay, nonspecific T change. Was a procedure done? Was a procedure done?: No GI differential Dx Differential Diagnosis: Gastritis/PUD, Gastroenteritis, GI hemorrhage, Inflammatory BD, Ischemic Bowel, Dehydration, Electrolyte Imbalance, Food Poisoning, Bacterial, Viral, Hypovolemia, Renal Failure, Anemia, Esophageal Varicies, Stress Ulcer X-Ray, Labs, Meds, VS Vital Signs Date Time Temp Pulse Resp B/P (MAP) Pulse Ox O2 Delivery O2 Flow Rate FiO2 07/16/24 19:51 74 07/16/24 18:00 98.2 70 17 120/95 (103) 98 Lab Test 07/16/24 19:36 07/16/24 18:22 07/16/24 17:07 Range/Units Troponin I High Sensitivity 3 L 3 L </=54 ng/L B-Type Natriuretic Peptide 8.48 0-100 pg/mL White Blood Count 12.3 H 4.4-10.8 10^3/uL Red Blood Count 5.33 4.5-5.90 10^6/uL Hemoglobin 14.4 13.5-17.5 g/dL Hematocrit 46.3 41.0-53.0 % Mean Corpuscular Volume 86.8 80.0-100.0 fL Mean Corpuscular Hemoglobin 26.9 L 28.0-32.0 pg Mean Corpuscular Hemoglobin Concent 31.1 L 32.0-36.0 g/dL Red Cell Distribution Width 17.9 H 11.8-14.3 % Platelet Count 256 140-450 10^3/uL Mean Platelet Volume 9.3 6.9-10.8 fL Neutrophils (%) (Auto) 82.5 H 37.0-80.0 % Lymphocytes (%) (Auto) 10.5 10.0-50.0 % Monocytes (%) (Auto) 6.7 0.0-12.0 % Eosinophils (%) (Auto) 0.2 0.0-7.0 % Basophils (%) (Auto) 0.1 0.0-2.0 % Neutrophils # (Auto) 10.2 H 1.6-8.6 10 ^3/uL Lymphocytes # (Auto) 1.3 0.4-5.4 10 ^3/uL Monocytes # (Auto) 0.8 0-1.3 10 ^3/uL Eosinophils # (Auto) 0 0-0.8 10 ^3/uL Basophils # (Auto) 0 0-0.2 10 ^3/uL Nucleated Red Blood Cells 0.2 % Sodium Level 143 136-145 mmol/L Potassium Level 3.2 L 3.5-5.1 mmol/L Chloride Level 107 98-107 mmol/L Carbon Dioxide Level 21 20-31 mmol/L Anion Gap 15 5-15 Blood Urea Nitrogen 12 9-23 mg/dL Creatinine 1.06 0.700-1.30 mg/dL Glomerular Filtration Rate Calc 94 >90 mL/min BUN/Creatinine Ratio 11.3 10.0-20.0 Serum Glucose 87 74-106 mg/dL Lactic Acid Level 1.8 0.4-2.0 mmol/L Calcium Level 10.7 H 8.7-10.4 mg/dL Total Bilirubin 0.7 0.2-1.0 mg/dL Aspartate Amino Transferase (AST) 18 13-40 U/L Alanine Aminotransferase (ALT) 17 7-40 U/L Alkaline Phosphatase 84 46-116 U/L Total Protein 8.8 H 5.7-8.2 g/dL Albumin 5.3 H 3.2-4.8 g/dL Lipase 35 12-53 U/L Urine Color Yellow Yellow Urine Clarity Clear Clear Urine pH 7.0 5.0-9.0 Urine Specific [place] 1.039 H 1.001-1.035 Urine Protein 1+ H Negative Urine Ketones 1+ H Negative Urine Blood Negative Negative /uL Urine Nitrite Negative Negative Urine Bilirubin Negative Negative Urine Urobilinogen Normal Negative mg/dL Urine Leukocyte Esterase Negative Negative /uL Urine RBC 1 0 - 3 /hpf Urine Microscopic WBC 2 0-3 /HPF Urine Squamous Epithelial Cells None seen <5 /hpf Urine Bacteria None seen None Seen /hpf Urine Mucus Few None Seen Urine Glucose Normal Normal mg/dL [place] [address] Ph: [phone] DIAGNOSTIC IMAGING Diagnostic Imaging Report : [id number] Signed PATIENT: ARGELIA HARRISON IIICCT: [id number] UNIT: [id number] : 1990 LOC: ER ROOM / BED: / AGE / SEX: 33 / M ADM STATUS: REG ER SERVICE [id number] ORDERING PHYSICIAN: MAGDA OTTO MD PROCEDURE(s): ABPL - CT AB PEL WO CON-NO ORAL OR IV REASON: hematemesis ORDER NUMBER(s): [id number], ACCESSION NUMBER(s): [id number] Exam: CT CT AB PEL WO CON-NO ORAL OR IV History: hematemesis Comparison Study: CT CT AB PEL WO CON-NO ORAL OR IV on DOS: 11/10/23 Technique: Multidetector spiral CT of the abdomen was performed from lung bases to pubic symphysis. Imaging was performed without IV contrast. Axial, coronal and sagittal multiplanar reformats were obtained from the axial data set by the technologist. Radiation Dose : 1. Abdomen/Pelvis: CTDIvol 12.5 mGy, DLP 658 mGy*cm. Findings: Evaluation of solid organs is limited due to lack of intravenous contrast use. Lung Bases: There is atelectasis/ consolidation in the right middle lobe. Minimal linear atelectasis in the left lower lobe. Visualized heart is unremarkable. Liver: The liver is normal in size. Mild focal fatty infiltration along the falciform ligament. Gallbladder and Biliary Tree: Unremarkable Spleen: Unremarkable Pancreas: The pancreas is grossly normal in appearance. Adrenal Glands: Unremarkable Kidneys: Kidneys are grossly normal without calculi or hydronephrosis. Bladder: Grossly unremarkable for degree of distention. Bowel: The stomach is grossly normal in appearance. Small bowel and colon are normal in caliber and distribution. Mild wall thickening in the descending colon is likely related to poor distention. Normal appendix is visualized in the right lower quadrant without findings of appendicitis. Ascites: Absent Lymphadenopathy: No mesenteric, retroperitoneal or periportal lymphadenopathy. Abdominal Wall and Mesentery: Loss of subcutaneous fat in the anterior abdominal wall in the left lower quadrant of the abdomen is unchanged and may be related to a prior procedure. Vasculature: The visualized abdominal aorta is normal in size and caliber. Evaluation of abdominal and pelvic vessels is limited due to lack of intravenous contrast. Pelvic Organs: Unremarkable Musculoskeletal: No aggressive focal bony lesions, acute fractures or dislocation. IMPRESSION: Evaluation is limited due to lack of intravenous contrast. 1. No evidence of acute abdominal or pelvic findings. 2. Mild atelectasis/consolidation in the right middle lobe. Radiation optimization: All CT scans at this facility use at least one of these dose optimization techniques: automated exposure control mA and/or kV adjustment per patient size (includes targeted exams where dose is matched to clinical indication) or iterative reconstruction. ATED BY: ACE MERCER DO DICTATED DATE/TIME: 07/16/241909 SIGNED BY: ACE MERCER DO SIGNED DATE/TIME: 07/16/241909 CC: [place] [address] Ph: [phone] DIAGNOSTIC IMAGING Diagnostic Imaging Report : [id number] Signed PATIENT: ARGELIA HARRISON IIICCT: [id number] UNIT: [id number] : 1990 LOC: ER ROOM / BED: / AGE / SEX: 33 / M ADM STATUS: REG ER SERVICE [id number] ORDERING PHYSICIAN: MAGDA OTTO MD PROCEDURE(s): CXR1 - CHEST XRAY 1 VIEW REASON: cp ORDER NUMBER(s): [id number], ACCESSION NUMBER(s): [id number] EXAM: XY CHEST XRAY 1 VIEW TECHNIQUE: Single frontal chest radiograph CLINICAL HISTORY: cp COMPARISON: None Findings/Impression: Frontal chest radiograph demonstrates no acute osseous or superficial soft tissue abnormalities. The trachea is midline. The cardiac silhouette and mediastinum are within normal limits. No pneumothorax, pleural effusions, or consolidations. ATED BY: RETA LANDIS DO DICTATED DATE/TIME: 07/16/241902 SIGNED BY: RETA LANDIS DO SIGNED DATE/TIME: 07/16/241902 CC: X-Ray, Labs, Meds, VS Comment 33 y.o male with PMHx of brain and neck cancer, presents to the ED for a chief complaint of dark red hematemesis associated with anxiety that started one day ago. Vitals remarkable for BP 120/95 Exam remarkable for epigastric tenderness to palpation Rhythm strip independently interpreted by me: Sinus rhythm, rate 70, no ectopy. Chest x-ray Findings/Impression: Frontal chest radiograph demonstrates no acute osseous or superficial soft tis jass abnormalities. The trachea is midline. The cardiac silhouette and mediastinum are within normal limits. No pneumothorax, pleural effusions, or consolidations. CT abdomen and pelvis IMPRESSION: Evaluation is limited due to lack of intravenous contrast. 1. No evidence of acute abdominal or pelvic findings. 2. Mild atelectasis/consolidation in the right middle lobe. CBC remarkable for WBC 12.3, H&H are normal at 14.4 and 46.3, metabolic panel remarkable for potassium 3.2, BNP and 2 serial troponins negative, UA remarkable for protein and ketones Patient treated with the following in the ED: 1 L 0.9 normal saline IV bolus, morphine 4 mg IV, Zofran 4 mg IV, Ativan 1 mg IV, Protonix 40 mg IV, effervescent potassium 50 mEq p.o. On re-evaluation, patient states nausea has improved but he is having severe burning mid chest pain. Plan is to admit the patient for GI evaluation and emesis control. Time of 1ST Reevaluation: 19:43 Reevaluation 1ST: Unchanged Patient Education/Counseling: Diagnosis, Treatment, Prognosis Family Education/Counseling: No Family Present Departure 1 Departure Time of Disposition: 20:32 Impression: Primary Impression: Hematemesis Qualified Codes: K92.0 - Hematemesis Additional Impression: Chest pain Qualified Codes: R07.9 - Chest pain, unspecified Disposition: 09 ADMITTED INPATIENT Admit to: Tele Condition: Guarded Critical Care Note Critical Care Time?: No Stability Stability form required: No Heart Score Heart Score: Heart Score Response (Comments) Value History Moderate Suspicious 1 EKG Repolarization Disturb 1 Age <45 0 Risk Factors 1 or 2 risk factors 1 Troponin Normal limit 0 Total 3 I personally scribed for MAGDA OTTO MD ([facility]) on 07/16/24 at 19:52. Electronically submitted by Maria Elena Quintanilla ([facility]). I personally scribed for MAGDA OTTO MD ([facility]) on 07/16/24 at 19:53. Electronically submitted by Maria Elena Quintanilla ([facility]). MAGDA OTTO MD Jul 16, 2024 19:52
[2024-07-16] MEDS ORDERED: oxyCODONE HCL 5MG TAB PO PRN (20:45)
--- NOTE | 2024-07-16 21:11 | DVHHPRES ---
History of Present Illness Resident Creating Document: [facility] RESIDENT Reason for Visit: hematemesis History of Present Illness 33-year-old male with a past medical history of brain cancer (status post craniectomy in 2014, followed by chemotherapy and radiation) , who presents to the ED with 10+ episodes of hematemesis since yesterday, along with central chest pain (radiated to epigastric region) described as a burning and throbbing sensation. The patient denies shortness of breath, diarrhea, fever, or chills. He reports anxiety, which he believes may have contributed to the symptoms. Upon examination, he had a bag containing vomit that appeared to be clear liquid without blood. He states that he has been following up at [facility], with his last visit being last year, where he was told he needed another surgery. A CT scan in May reportedly showed no new masses. This is not his first visithe was here previously for similar symptoms and was about to undergo an endoscopy but left against medical advice (AMA). He has a history of chronic pain and is prescribed multiple pain and psychiatric medications Past Medical History: Brain cancer (status post craniectomy in 2015, chemotherapy, and radiation). Chronic pain syndrome. Anxiety disorder. Past Surgical History: Craniotomy (2015) for brain cancer. Family History: Denies major medical conditions. Social History: Tobacco smoker. Denies alcohol and recreational drug use. Home meds: fentanyl patches, metoprolol, olanzapine, oxycodone, alprazolam, pantoprazole, and cyclobenzaprine. Review of Systems Constitutional: No: Fever, Chills, Sweats, Weakness, Malaise, Other Eyes: No: Pain, Vision change, Conjunctivae inflammation, Eyelid inflammation, Other, Redness ENT: No: Ear pain, Ear discharge, Nose pain, Nose discharge, Nose congestion, Mouth pain, Mouth swelling, Throat pain, Throat swelling, Other Respiratory: No: Cough, Dry, Shortness of breath, SOB with excertion, Wheezing, Hemoptysis, Pleuritic Pain, Sputum, Wheezing, Other Cardiovascular: No: Chest Pain, Palpitations, Orthopnea, Paroxysmal Noc. Dyspnea, Edema, Lt Headedness, Other Gastrointestinal: Vomiting, Other (hematemesis); No: Nausea, Abdominal Pain, Diarrhea, Constipation, Melena, Hematochezia Musculoskeletal: No: other, neck pain, shoulder pain, arm pain, back pain, hand pain, leg pain, foot pain Skin: No: Rash, Lesions, Jaundice, Bruising, Other Allergies: Coded Allergies: Acetaminophen (Verified Allergy, Unknown, 09/02/21) Diphenhydramine (Verified Allergy, Unknown, 09/02/21) Metoclopramide (Verified Allergy, Unknown, 07/16/24) Prochlorperazine (Verified Allergy, Unknown, 07/16/24) Uncoded Allergies: BLEACH (Allergy, Unknown, 09/02/21) MRI CONTRAST (Allergy, Unknown, 09/02/21) Medications Current Medications Medications Dose Ordered Sig/[place] Route Start Time Stop Time Status Last Admin Dose Admin Pantoprazole Sodium 40 mg BID IV 07/16/24 20:45 Oxycodone HCl 10 mg Q6HPRN PRN PO 07/16/24 20:45 Exam Vital Signs Vital Signs Date Time Temp Pulse Resp B/P (MAP) Pulse Ox O2 Delivery O2 Flow Rate FiO2 07/16/24 19:51 74 07/16/24 18:00 98.2 17 120/95 (103) 98 Exam General: Well-appearing, alert, mild distress. HEENT: No scleral icterus, no oropharyngeal lesions. Neck: Supple, no lymphadenopathy. CV: Regular rate and rhythm, no murmurs. Pulmonary: No respiratory distress, lungs clear to auscultation bilaterally. Abdomen: Soft, tender at epigastric region, no distension, normoactive bowel sounds. Neuro: No new focal deficits, mild left facial weakness noted Psych: Anxious but cooperative. Labs/Xrays Labs Test 07/16/24 19:36 07/16/24 18:22 07/16/24 17:07 Range/Units Troponin I High Sensitivity 3 L </=54 ng/L B-Type Natriuretic Peptide 8.48 0-100 pg/mL White Blood Count 12.3 H 4.4-10.8 10^3/uL Red Blood Count 5.33 4.5-5.90 10^6/uL Hemoglobin 14.4 13.5-17.5 g/dL Hematocrit 46.3 41.0-53.0 % Mean Corpuscular Volume 86.8 80.0-100.0 fL Mean Corpuscular Hemoglobin 26.9 L 28.0-32.0 pg Mean Corpuscular Hemoglobin Concent 31.1 L 32.0-36.0 g/dL Red Cell Distribution Width 17.9 H 11.8-14.3 % Platelet Count 256 140-450 10^3/uL Mean Platelet Volume 9.3 6.9-10.8 fL Neutrophils (%) (Auto) 82.5 H 37.0-80.0 % Lymphocytes (%) (Auto) 10.5 10.0-50.0 % Monocytes (%) (Auto) 6.7 0.0-12.0 % Eosinophils (%) (Auto) 0.2 0.0-7.0 % Basophils (%) (Auto) 0.1 0.0-2.0 % Neutrophils # (Auto) 10.2 H 1.6-8.6 10 ^3/uL Lymphocytes # (Auto) 1.3 0.4-5.4 10 ^3/uL Monocytes # (Auto) 0.8 0-1.3 10 ^3/uL Eosinophils # (Auto) 0 0-0.8 10 ^3/uL Basophils # (Auto) 0 0-0.2 10 ^3/uL Nucleated Red Blood Cells 0.2 % Sodium Level 143 136-145 mmol/L Potassium Level 3.2 L 3.5-5.1 mmol/L Chloride Level 107 98-107 mmol/L Carbon Dioxide Level 21 20-31 mmol/L Anion Gap 15 5-15 Blood Urea Nitrogen 12 9-23 mg/dL Creatinine 1.06 0.700-1.30 mg/dL Glomerular Filtration Rate Calc 94 >90 mL/min BUN/Creatinine Ratio 11.3 10.0-20.0 Serum Glucose 87 74-106 mg/dL Lactic Acid Level 1.8 0.4-2.0 mmol/L Calcium Level 10.7 H 8.7-10.4 mg/dL Total Bilirubin 0.7 0.2-1.0 mg/dL Aspartate Amino Transferase (AST) 18 13-40 U/L Alanine Aminotransferase (ALT) 17 7-40 U/L Alkaline Phosphatase 84 46-116 U/L Total Protein 8.8 H 5.7-8.2 g/dL Albumin 5.3 H 3.2-4.8 g/dL Lipase 35 12-53 U/L Urine Color Yellow Yellow Urine Clarity Clear Clear Urine pH 7.0 5.0-9.0 Urine Specific [place] 1.039 H 1.001-1.035 Urine Protein 1+ H Negative Urine Ketones 1+ H Negative Urine Blood Negative Negative /uL Urine Nitrite Negative Negative Urine Bilirubin Negative Negative Urine Urobilinogen Normal Negative mg/dL Urine Leukocyte Esterase Negative Negative /uL Urine RBC 1 0 - 3 /hpf Urine Microscopic WBC 2 0-3 /HPF Urine Squamous Epithelial Cells None seen <5 /hpf Urine Bacteria None seen None Seen /hpf Urine Mucus Few None Seen Urine Glucose Normal Normal mg/dL Assessment/Plan Assessment/Plan Hematology: WBC: 12.3 (mildly elevated) Hgb: 14.4 (normal) Hct: 46.3 (normal) Plt: 256 (normal) Electrolytes & Renal Function: BUN: 12 (normal) Creatinine: 1.06 (normal) Potassium: 3.2 (low) Other: Lipase: normal CT Head (05/19/2024): Stable post-surgical changes (left occipital craniectomy, mastoidectomy). No acute intracranial abnormalities (no hemorrhage, mass effect, or infarct). Abdomen CT scan: Evaluation is limited due to lack of intravenous contrast. 1. No evidence of acute abdominal or pelvic findings. 2. Mild atelctasis/consolidation in the right middle lobe. Chest x ray normal 33-year-old male with a history of brain cancer (status post craniotomy, chemo, radiation), anxiety and psychiatric? disorder, chronic pain syndrome, and hypothyroidism, presenting with 10 episodes of reported hematemesis, but with clear vomit in ED, no active bleeding, and stable vitals. BUN and creatinine normal. [place] bleeding score 0, will be admitted due to possible GI bleeding, monitor H&H and possible GI consult, patient was also hypokalemic at admission due to vomit, IV fluids, antiemetic. NPO for now #Rule out GI bleeding? #Intractable emesis #possible PNA gram+/ gram neg #Brain cancer s/p craniotomy stable #Anxiety #Chronic pain #Hypokalemia Admit Med/surg NPO except for ice chips Pantoprazole 40 mg BID Oxycodone PRN due to pain SOB Potassium PO given IV fluids Zofran PRN Ceftriaxone + Azithromycin IV Case discussed with Dr Snowden Plan discussed with: Patient, Other (rn) My Orders Orders - AURA [facility] RESIDENT Procedure Category Date Status Time Admit ADMIT 07/16/24 Transmitted 20:37 Pantoprazole PHA 07/16/24 In Process (Protonix) 20:45 Npo Except Ice Chips ORDERS 07/16/24 Transmitted 20:37 Oxycodone Immediate PHA 07/16/24 In Process Rel Tablet 20:45 Stool Occult Blood LAB 07/16/24 Logged 20:37 Complete Blood Count LAB 07/17/24 Verified 04:00 Comprehensive LAB 07/17/24 Verified Metabolic Panel 04:00 Thyroid Stimulating LAB 07/16/24 In Process Hormone 20:37 Drug Screen LAB 07/16/24 In Process 20:37 Date of Service: Jul 16, 2024 Billing Provider: CHEPE SNOWDEN MD Common Visit Codes: [id number] INP/OBS CARE (HIGH) AURA BATEMAN RESIDENT Jul 16, 2024 21:11 CHEPE SNOWDEN MD Jul 17, 2024 10:30
[2024-07-16] MEDS: AZITHROMYCIN 500MG/ 250ML 250 ML IV SCH (21:45)
[2024-07-16] MEDS: LORazepam 2MG/ML-1ML VIAL IV ONE (21:51)
[2024-07-16] MEDS: POTASSIUM EFFERVESENT TAB 25 MEQ PO ONE (21:51)
[2024-07-16] MEDS: PANTOPRAZOLE 40 MG/10 ML VIAL INJ IV ONE (21:52)
[2024-07-16] MEDS: ONDANSETRON HCL 4 MG/2 ML VIAL IV ONE (21:52)
[2024-07-16] MEDS: SODIUM CHLORIDE 0.9% 1,000 ML IV ONE ×2 (21:53→22:53)
[2024-07-16] MEDS: MORPHINE SULFATE 4 MG/ML SYR/VIAL IV ONE (21:53)
[2024-07-16] MEDS: PANTOPRAZOLE 40 MG/10 ML VIAL INJ IV SCH (21:53)
[2024-07-16] MEDS ORDERED: PROM6.2520 PO (22:13)
[2024-07-16] MEDS ORDERED: PREG75CA90 PO (22:13)
[2024-07-16] MEDS ORDERED: PANT1INJ3 PO (22:13)
[2024-07-16] MEDS ORDERED: CLON-853 PO (22:13)
[2024-07-16] MEDS ORDERED: OXYC30TA50 PO (22:15)
[2024-07-16 22:47] VITALS: BP 148/105; PULSE 60; RESP 18; TEMP 98.4; O2SAT 100
[2024-07-16] MEDS: cefTRIAXone 1GM/50ML D5W 50 ML IV SCH (22:48)
[2024-07-16 23:00] LABS: Opiate Scree,Urine Neg (NEGATIVE)
[2024-07-16 23:02] LABS: Amphetamine Screen, Urine Neg (NEGATIVE); Barbiturate Scree,Urine Neg (NEGATIVE); Benzodiazephine Screen, Urine Pos (NEGATIVE); Cannabinoid Screen, Urine Neg (NEGATIVE); Cocaine Screen, Urine Neg (NEGATIVE); Phencyclidine Screen, Urine Neg (NEGATIVE)
[2024-07-16] MEDS: ONDANSETRON HCL 4 MG/2 ML VIAL IV PRN (23:49)
[2024-07-17 01:00] VITALS: BP 129/91; PULSE 70; RESP 18; TEMP 97.8; O2SAT 98
[2024-07-17] MEDS: MORPHINE SULFATE INJ 2 MG/ml SYRG IV PRN (01:35)
[2024-07-17] MEDS: LORazepam 2MG/ML-1ML VIAL IV PRN (02:55)
[2024-07-17 04:42] VITALS: BP 98/65; PULSE 67; RESP 18; TEMP 98.4; O2SAT 95
[2024-07-17 06:19] LABS: Basophils # (auto) 0 10 ^3/uL (0-0.2); Basophils % (auto) 0.3 % (0.0-2.0); Eosinophils # (auto) 0 10 ^3/uL (0-0.8); Hematocrit 39.4 % (41.0-53.0); Hemoglobin 12.5 g/dL (13.5-17.5); Lymphocytes # (auto) 1.6 10 ^3/uL (0.4-5.4); Lymphocytes % (auto) 16.8 % (10.0-50.0); Mean Corpuscular Hemoglobin 27.3 pg (28.0-32.0); Mean Corpuscular Hgb Conc. 31.6 g/dL (32.0-36.0); Mean Corpuscular Volume 86.3 fL (80.0-100.0); Monocytes % (auto) 10.5 % (0.0-12.0); Neutrophils % (auto) 72.4 % (37.0-80.0); Platelet Count (auto) 253 10^3/uL (140-450); Red Blood Cells 4.56 10^6/uL (4.5-5.90); Red Cell Distribution Width 18.1 % (11.8-14.3); White Blood Cell 9.7 10^3/uL (4.4-10.8)
[2024-07-17 06:38] LABS: Alanine Aminotransferase 13 U/L (7-40); Albumin 4.4 g/dL (3.2-4.8); Alkaline Phosphatase 66 U/L (46-116); Anion Gap 13 (5-15); BUN/Creatinine Ratio 14.8 (10.0-20.0); Bilirubin, Total 0.6 mg/dL (0.2-1.0); Blood Urea Nitrogen 16 mg/dL (9-23); Calcium 9.8 mg/dL (8.7-10.4); Carbon Dioxide 25 mmol/L (20-31); Glucose 79 mg/dL (74-106); Potassium 4.2 mmol/L (3.5-5.1); Sodium 145 mmol/L (136-145); Total Protein 7.2 g/dL (5.7-8.2)
[2024-07-17 06:46] LABS: Aspartate Aminotransferase 12 U/L (13-40); Chloride 107 mmol/L (98-107)
[2024-07-17] MEDS: SODIUM CHLORIDE 0.9% 1,000 ML IV SCH (07:00)
[2024-07-17 08:00] VITALS: BP 107/76; PULSE 71; RESP 18; TEMP 98.2; O2SAT 99
[2024-07-17 08:20] LABS: INR 1.11 (0.9-1.15); Partial Thromboplastin Time 25.4 SEC (24.5-34.5); Prothrombin Time 11.6 sec (9.3-11.8)
[2024-07-17] MEDS: SUCRALFATE 1 GM/10 ML ORAL SUSP PO ONE (09:00)
[2024-07-17] MEDS: SUCRALFATE 1 GM/10 ML ORAL SUSP PO SCH (10:38)
--- NOTE | 2024-07-17 10:51 | ECG ---
[facility] Test Date: 2024-07-16 Test Time: 19:51:22 Pat Name: NADEEN HARRISON Department: ED Room: [address] [place] [address] Gender: M Whipped Topping Mixer: LESLIE : 1990 Requested By: MAGDA MANZANARES Order Number: [id number] Reading MD: Eric Carpio Measurements Intervals [place] Rate: 74 P: 66 VT: 139 QRS: 73 QRSD: 87 T: 31 QT: 375 QTc: 416 Interpretive Statements Sinus rhythm RSR' in V1 or V2, right VCD or RVH ST elev, probable normal early repol pattern Electronically Signed On 07-22-2024 17:07:00 PST by Eric Carpio Please click the below link to view image of tracing.
--- NOTE | 2024-07-17 13:14 | DVHINCON2 ---
GI Consult Consult Note GI consult note Date of Consultation: 07/17/2024 Chief Complaint: Hematemesis Referring Physician: Dr. Aguilar H&P: 33-year-old male PMH of brain cancer status post craniectomy in 2014, followed by chemo and radiation, presented to ER with 10+ episodes of hematemesis yesterday. Patient is still complaining of nausea and vomiting Patient complains of pain in epigastric area which is radiating up into his chest No melena or red blood in stool. No blood thinners. No EGD in past Past Medical History: Brain cancer (status post craniectomy in 2015, chemotherapy, and radiation). Chronic pain syndrome. Anxiety disorder. Past Surgical History: Craniotomy (2015) for brain cancer. Social History: Tobacco smoker. Denies alcohol and recreational drug use. Family History: Noncontributory Review of Systems: Constitutional: no fever, chill, weight loss HEENT: Headache, left side neck pain Heart: + chest pain Lung: no cough, no dyspnea with exertion Abdomen: see HPI Physical exam: General: NAD, AAOX3 Chest: lung sandoval clear to auscultation Heart: RRR, no murmur Abdomen:+ epigastric tenderness to palpation, +BS Labs: Labs Test 07/17/24 12:58 07/17/24 04:33 07/16/24 19:36 07/16/24 18:22 Range/Units White Blood Count 9.7 4.4-10.8 10^3/uL Red Blood Count 4.56 4.5-5.90 10^6/uL Hemoglobin 12.5 L 13.5-17.5 g/dL Hematocrit 39.4 #L 41.0-53.0 % Mean Corpuscular Volume 86.3 80.0-100.0 fL Mean Corpuscular Hemoglobin 27.3 L 28.0-32.0 pg Mean Corpuscular Hemoglobin Concent 31.6 L 32.0-36.0 g/dL Red Cell Distribution Width 18.1 H 11.8-14.3 % Platelet Count 253 140-450 10^3/uL Mean Platelet Volume 10.0 6.9-10.8 fL Neutrophils (%) (Auto) 72.4 37.0-80.0 % Lymphocytes (%) (Auto) 16.8 10.0-50.0 % Monocytes (%) (Auto) 10.5 0.0-12.0 % Eosinophils (%) (Auto) 0.0 0.0-7.0 % Basophils (%) (Auto) 0.3 0.0-2.0 % Neutrophils # (Auto) 7.0 1.6-8.6 10 ^3/uL Lymphocytes # (Auto) 1.6 0.4-5.4 10 ^3/uL Monocytes # (Auto) 1.0 0-1.3 10 ^3/uL Eosinophils # (Auto) 0 0-0.8 10 ^3/uL Basophils # (Auto) 0 0-0.2 10 ^3/uL Nucleated Red Blood Cells 0.0 % Prothrombin Time 11.6 9.3-11.8 sec Prothrombin Time INR 1.11 0.9-1.15 Activated Partial Thromboplast Time 25.4 24.5-34.5 SEC Sodium Level 145 136-145 mmol/L Potassium Level 4.2 3.5-5.1 mmol/L Chloride Level 107 98-107 mmol/L Carbon Dioxide Level 25 20-31 mmol/L Anion Gap 13 5-15 Blood Urea Nitrogen 16 9-23 mg/dL Creatinine 1.08 0.700-1.30 mg/dL Glomerular Filtration Rate Calc 92 >90 mL/min BUN/Creatinine Ratio 14.8 10.0-20.0 Serum Glucose 79 74-106 mg/dL Calcium Level 9.8 8.7-10.4 mg/dL Magnesium Level 1.9 1.6-2.6 mg/dL Total Bilirubin 0.6 0.2-1.0 mg/dL Aspartate Amino Transferase (AST) 12 L 13-40 U/L Alanine Aminotransferase (ALT) 13 7-40 U/L Alkaline Phosphatase 66 46-116 U/L Total Protein 7.2 5.7-8.2 g/dL Albumin 4.4 3.2-4.8 g/dL Vitamin B12 Level 375 211-911 pg/mL Vitamin D 25-Hydroxy 6.2 L 30.0-100 ng/mL Troponin I High Sensitivity 3 L </=54 ng/L B-Type Natriuretic Peptide 8.48 0-100 pg/mL Lactic Acid Level 1.8 0.4-2.0 mmol/L Lipase 35 12-53 U/L Thyroid Stimulating Hormone (TSH) 0.57 0.55-4.78 uIU/mL Test 07/16/24 17:07 Range/Units Urine Color Yellow Yellow Urine Clarity Clear Clear Urine pH 7.0 5.0-9.0 Urine Specific Jarratt 1.039 H 1.001-1.035 Urine Protein 1+ H Negative Urine Ketones 1+ H Negative Urine Blood Negative Negative /uL Urine Nitrite Negative Negative Urine Bilirubin Negative Negative Urine Urobilinogen Normal Negative mg/dL Urine Leukocyte Esterase Negative Negative /uL Urine RBC 1 0 - 3 /hpf Urine Microscopic WBC 2 0-3 /HPF Urine Squamous Epithelial Cells None seen <5 /hpf Urine Bacteria None seen None Seen /hpf Urine Mucus Few None Seen Urine Glucose Normal Normal mg/dL Urine Opiates Screen Neg NEGATIVE Urine Fentanyl Screen Pos NEGATIVE Urine Barbiturates Screen Neg NEGATIVE Urine Phencyclidine Screen Neg NEGATIVE Urine Amphetamines Screen Neg NEGATIVE Urine Benzodiazepines Screen Pos NEGATIVE Urine Cocaine Screen Neg NEGATIVE Urine Cannabinoids Screen Neg NEGATIVE Imaging: CT abdomen pelvis IMPRESSION: Evaluation is limited due to lack of intravenous contrast. 1. No evidence of acute abdominal or pelvic findings. 2. Mild atelectasis/consolidation in the right middle lobe. Assessment: Intractable nausea and vomiting GI bleed Brain cancer SP craniotomy Chronic pain Hypokalemia Plan: Discussed with Dr. Saul Kay, Protonix and Carafate Monitor labs Ice chips advance to clear liquids if tolerating We will continue to monitor the patient, GI on standby if any active bleeding Discussed plan with patient and RN Thank you for this consult Date of Service: Jul 17, 2024 Billing Provider: LUIS MIRANDA Common Visit Codes: CONSULT ONLY Consultation Codes: [id number] CONSULT <60MIN LUIS MIRANDA Jul 17, 2024 13:14
--- NOTE | 2024-07-17 13:53 | DVHPNRES ---
Progress Note Date Seen: Jul 17, 2024 Resident Creating Document: SYLWIA WOODRUFF RESIDENT Medical Necessity Reason Pt with a Central, PICC or Fol: No Subjective Review of Systems NADEEN AHRRISON III is a 33-year-old male with PMH of seizures, TIA, brain cancer status post craniectomy in 2014, CTX and RTx 2021, follows [facility], schedule for surgery probably October, questionable metastatic to the liver who presented to the ER for intractable nausea, vomiting and hematemesis for the past 2 days along with epigastric burning pain. He reports cigarette watching television when he started to vomit and since then he has been unable to tolerate any solids or liquids. Denies any radiation of the pain, unrelated to exertion, diaphoresis, palpitations. He has been admitted in this facility for similar reasons in November 07 and with history of multiple AMA discharges. Denies constipation or diarrhea. He reports 2 green bowel movements yesterday. reports history of EGD done 2 years back at [facility], cause a results unknown per patient. Patient came in with WBC count 12.3, low potassium, patient was kept NPO IV hydration is provided. GI consulted, recommended EGD. PMH: See above Home medication: Oxycodone, Xanax 2 mg t.i.d., Protonix, Social history, lives with daughter, denies smoking/drinking/drug use Patient seen and examined at the bedside. GI consulted, recommended EGD. Started ceftriaxone and metronidazole. Objective vital signs Vital Sign Date Time Temp Pulse Resp B/P (MAP) Pulse Ox O2 Delivery O2 Flow Rate FiO2 07/17/24 10:24 71 18 100/63 07/17/24 08:00 98.2 99 98.2 07/16/24 22:11 Room Air* 0 21 Total Intake and Output 07/16/24 07/16/24 07/17/24 15:00 23:00 07:00 Intake Total 300 ml Balance 300 ml medications Current Medications Medications Dose Ordered Sig/[place] Route Start Time Stop Time Status Last Admin Dose Admin Pantoprazole Sodium 40 mg BID IV 07/16/24 20:45 07/17/24 08:10 40 MG Ondansetron HCl 4 mg Q4HPRN PRN IV 07/16/24 21:30 07/17/24 08:18 4 MG Ceftriaxone Sodium 50 ml @ 100 mls/hr DAILY@09 IV 07/16/24 21:45 07/17/24 08:09 100 MLS/HR Lorazepam 1 mg Q8HP PRN IV 07/17/24 01:15 07/17/24 11:59 1 MG Morphine Sulfate 1 mg Q8HPRN PRN IV 07/17/24 01:15 07/17/24 09:54 1 MG Sodium Chloride 1,000 ml @ 125 mls/hr Q8H IV 07/17/24 07:00 07/17/24 07:00 125 MLS/HR Sucralfate 1 gm QID@0600,1130,1700,2200 PO 07/17/24 11:30 07/17/24 10:38 1 GM Metronidazole 100 ml @ 100 mls/hr Q8HR IV 07/17/24 12:00 Examination Patient ER holding area, sitting comfortably in the bed General: Well-built, afebrile, palor, mucosae are moist Cardiovascular: Regular S1 and S2. No murmurs, gallops or rubs. No JVD elevation. No pedal edema Respiratory: Normal B/L air entry on room air. Clear lung sounds on auscultation Abdomen: Soft, right quadrant and epigastric tenderness, nondistended, normoactive bowel sounds, no rebound tenderness, no organomegaly, no masses Genitourinary: Deferred MSK/skin: Mobilizes 4 limbs. Skin is dry and warm Neurological: No motor, no sensitive deficits, normal speech. Pupils are isocoric and reactive. Psych/Mental Status: A/Ox3 laboratory and microbiology Laboratory Tests 07/17/24 04:33 Test 07/17/24 04:33 Range/Units Serum Glucose 79 74-106 mg/dL Labs and/or images reviewed: Labs reviewed by me, Image(s) reviewed by me Problem List/Assessment/Plan Problem List/Assessment/Plan Hematemesis Intractable nausea and vomiting Questionable likely gastroenteritis, infectious Pantoprazole IV b.i.d. 40 mg Carafate 1 g q.i.d. Started ceftriaxone and metronidazole 07/17 Continue IV NS 125 cc/hour GI consulted-recommended EGD CT abdomen/pelvis unremarkable Ruled out pneumonia Discontinued azithromycin Questionable metastatic brain cancer status post craniectomy, CTX, RTX, Questionable metastasis to lungs Outpatient follow up with [facility] Hypokalemia Supplemented Vitamin-D deficiency Supplemented Fentanyl use dependence Counseled regarding cessation for more than 27 minutes Plan discussed with patient in which all questions have been answered Goals of care discussed with the patient for more than 24 minutes, full code status Case discussed with Dr. Vargas Plan discussed with: Patient My Orders My Orders Orders - SYLWIA WOODRUFF Procedure Category Date Status Time Npo (Nothing By DIET 07/17/24 Transmitted Mouth) Diet Breakfast Sodium Chloride 0.9% PHA 07/17/24 In Process 07:00 Sucralfate Susp PHA 07/17/24 In Process (Carafate Susp) 11:30 Metronidazole PHA 07/17/24 In Process 500mg/100ml (Flagyl 12:00 Date of Service: Jul 17, 2024 Billing Provider: MOE FISHER MD Common Visit Codes: [id number] INP/OBS CARE(HIGH) SYLWIA WOODRUFF Jul 17, 2024 13:53 MOE FISHER MD Jul 24, 2024 01:33
[2024-07-17 14:00] VITALS: BP 104/68; PULSE 83; RESP 18; TEMP 98.6; O2SAT 98
[2024-07-17] MEDS: metroNIDAZOLE 500MG/100ML 100 ML IV SCH (15:30)
[2024-07-17] MEDS: CYANOCOBALAMIN (B-12) 1000 MCG/1 ML VIAL SUBCUT ONE (15:32)
[2024-07-17] MEDS: THIAMINE 100mg/ml INJ (200mg/2ml VIAL) IV ONE (15:32)
[2024-07-17] MEDS: ERGOCALCIFEROL 50,000 UNIT(1.25MG) CAP PO SCH (15:33)
[2024-07-17 21:00] VITALS: BP 107/65; PULSE 59; RESP 16; TEMP 98.3; O2SAT 98
[2024-07-17] MEDS ORDERED: metroNIDAZOLE 500MG/100ML 100 ML IV SCH (23:30)
== END 2024-07-17 23:45 | disposition left against medical advice (07) | DRG 378 ==
LOC: ER 17:42 → OVERFLOW 20:37
PROVIDERS: ADMIT Student in an Organized Health Care Education/Training Program; ATTEND Student in an Organized Health Care Education/Training Program
DX: K92.2 Gastrointestinal hemorrhage, unspecified (principal); A09 Infectious gastroenteritis and colitis, unspecified; D62 Acute posthemorrhagic anemia; C71.9 Malignant neoplasm of brain, unspecified; C78.00 Secondary malignant neoplasm of unspecified lung; D84.9 Immunodeficiency, unspecified; E87.6 Hypokalemia; G89.4 Chronic pain syndrome; Z53.29 Procedure and treatment not carried out because of patient's decision for other reasons; F41.9 Anxiety disorder, unspecified; F17.210 Nicotine dependence, cigarettes, uncomplicated; E55.9 Vitamin D deficiency, unspecified; Z85.841 Personal history of malignant neoplasm of brain; Z88.8 Allergy status to other drugs, medicaments and biological substances; Z79.899 Other long term (current) drug therapy
CPT/HCPCS: 36415; 71045; 74176; 80053; 80307; 80320; 81001; 82306; 82607; 83605; 83690; 83735; 83880; 84443; 84484; 85025; 85610; 85730; 93005; 96361; 96374; 96375; G0378; J2405; J2470; J3490

== ENCOUNTER 2024-08-06 12:48 | Inpatient (IN) | payer OTHER, MEDICAID ==
[~2024-08-06] VITALS: Ht 175.3 cm; Wt 78.1 kg
[~2024-08-06 12:48] MED LIST changes: -CYCL-611 PO; -MET50T PO; -OLAN10TA40 PO; +PREG75CA90 PO; +PROM6.2520 PO
--- NOTE | 2024-08-06 13:15 | ED.PDOC ---
History of Present Illness HPI Comments 33-year-old male with PMHx Cancer presents with a chief complaint of hematemesis x 4 days with associated rectal pain, rectal bleeding, and nausea/vomiting. Patient states that he had similar symptoms x 3 weeks ago and was admitted here to this facility, but left AMA before they could do an endoscopy. Patient is reporting that he is vomiting bright red blood. Patient denies any melena, and denies use of blood thinners. Patient is a cancer patient at [facility] and has an upcoming surgery with them for his brain cancer. No other symptoms or modifying factors present at this time. Time Seen by MD: 13:08 Primary Care Provider: pt does not remember name Reviewed Notes: Medications, Allergies Allergies: Coded Allergies: Acetaminophen (Verified Allergy, Unknown, 09/02/21) Diphenhydramine (Verified Allergy, Unknown, 09/02/21) Metoclopramide (Verified Allergy, Unknown, 07/16/24) Prochlorperazine (Verified Allergy, Unknown, 07/16/24) Uncoded Allergies: BLEACH (Allergy, Unknown, 09/02/21) MRI CONTRAST (Allergy, Unknown, 09/02/21) Home Meds Reported Medications Promethazine HCl (Promethazine HCl) 6.25 Mg/5 Ml Syp, PO 07/16/24 Pregabalin (Pregabalin) 75 Mg Cap, 1 CAP PO 07/16/24 Fentanyl (Fentanyl) 100 Mcg/Hr Dis, 2 PATCH TD Q72HR, DIS APPLY 2 PATCHES TO SKIN ONCE EVERY 3 DAYS. CHANGE PATCH EVERY 72 HOURS AND APPLY NEW PATCHES TO DIFFERENT SKIN SITE. 11/10/23 Oxycodone HCl (Oxycodone Hydrochloride) 30 Mg Tab, 1 TAB PO Q4HPRN PRN for PAIN SCALE 1 THRU 6 11/10/23 Alprazolam (Alprazolam) 2 Mg Tab, 1 TAB PO TID PRN for ANXIETY 11/10/23 Pantoprazole Sodium Sesquihydr (Pantoprazole Sodium) 40 Mg Tab, 1 TAB PO BID 11/10/23 Information Source: Patient Mode of Arrival: Ambulatory Severity: Moderate Timing: Weeks Duration: Intermittent Prehospital treatment: None Past Medical History PAST MEDICAL HISTORY: Cancer Family History Family History: Reviewed,noncontributory to illness Social History Smoker: Cigarettes Alcohol: Denies ETOH Use Drugs: Denies Drug Use Lives In: Home Constitutional: denies: chills, diaphoresis, fatigue, fever, malaise, sweats, weakness, others EENTM: denies: blurred vision, double vision, ear bleeding, ear discharge, ear drainage, ear pain, ear ringing, eye pain, eye redness, hearing loss, mouth pain, mouth swelling, nasal discharge, nose bleeding, nose congestion, nose pain, photophobia, tearing, throat pain, throat swelling, voice changes, others Respiratory: denies: cough, hemoptysis, orthopnea, SOB at rest, shortness of breath, SOB with excertion, stridor, wheezing, others Cardiovascular: denies: chest pain, dizzy spells, diaphoresis, Dyspnea on exertion, edema, irregular heart beat, left arm pain, lightheadedness, palpitations, PND, syncope, others Gastrointestinal: reports: hematemesis, nausea, rectal bleeding, rectal pain, vomiting; denies: abdomen distended, abdominal pain, blood streaked bowels, constipated, diarrhea, dysphagia, difficulty swallowing, melena, poor appetite, poor fluid intake, others Genitourinary: denies: burning, dysuria, flank pain, frequency, hematuria, incontinence, penile discharge, penile sore, pain, testicle pain, testicle swelling, urgency, others Neurological: denies: dizziness, fainting, headache, left sided numbness, left sided weakness, numbness, paresthesia, pre-existing deficit, right sided numbness, right sided weakness, seizure, speech problems, tingling, tremors, weakness, others Musculoskeletal: denies: back pain, gout, joint pain, joint swelling, muscle pain, muscle stiffness, neck pain, others Integumetry: denies: bruises, change in color, change in hair/nails, dryness, laceration, lesions, lumps, rash, wounds, others Allergic/Immunocompromised: denies: Difficulty Healing, Frequent Infections, Hives, Itching, others Hematologic/Lymphatic: denies: anemia, blood clots, easy bleeding, easy bruising, swollen glands, others Endocrine: denies: excessive hunger, excessive sweating, excessive thirst, excessive urination, flushing, intolerance to cold, intolerance to heat, unexplained weight gain, unexplained weight loss, others Psychiatric: denies: anxiety, bipolar disorder, depression, hopeless, panic disorder, schizophrenia, sleepless, suicidal, others All Other Systems: Reviewed and Negative Physical Exam General Appearance: No Apparent Distress HEENT: Normal ENT Inspection, Pharynx Normal, TMs Normal Neck: Full Range of Motion, Non-Tender, Normal, Normal Inspection Respiratory: Chest Non-Tender, Lungs Clear, No Accessory Muscle Use, No Respiratory Distress, Normal Breath Sounds Cardiovascular: No Edema, No JVD, No Murmur, No Gallop, Normal Peripheral Pul ses, Regular Rate/Rhythm Breast Exam: Deferred Gastrointestinal: No Organomegaly, Non Tender, No Pulsatile Mass, Normal Bowel Sounds, Soft Genitalia: Deferred Pelvic: Deferred Rectal: Deferred Extremities: No calf tenderness, Normal capillary refill, Normal inspection, Normal range of motion, Non-tender, No pedal edema Musculoskeletal : Apperance: Normal Neurologic: Alert, bicycle fitter II-XII nml as Tested, No Motor Deficits, Normal Affect, Normal Mood, No Sensory Deficits Cerebellar Function: Normal Reflexes: Normal Skin: Dry, Normal Color, Warm Lymphatic: No Adenopathy Was a procedure done? Was a procedure done?: No Differential Dx Considerations may include: GI bleed X-Ray, Labs, Meds, VS Vital Signs Date Time Temp Pulse Resp B/P (MAP) Pulse Ox O2 Delivery O2 Flow Rate FiO2 08/06/24 13:15 98.0 113 16 126/86 (99) 97 98.0 Lab Test 08/06/24 13:27 Range/Units White Blood Count 4.1 L 4.4-10.8 10^3/uL Red Blood Count 5.07 4.5-5.90 10^6/uL Hemoglobin 14.4 13.5-17.5 g/dL Hematocrit 43.7 41.0-53.0 % Mean Corpuscular Volume 86.2 80.0-100.0 fL Mean Corpuscular Hemoglobin 28.5 28.0-32.0 pg Mean Corpuscular Hemoglobin Concent 33.0 32.0-36.0 g/dL Red Cell Distribution Width 17.9 H 11.8-14.3 % Platelet Count 278 140-450 10^3/uL Mean Platelet Volume 8.9 6.9-10.8 fL Neutrophils (%) (Auto) 60.3 37.0-80.0 % Lymphocytes (%) (Auto) 28.9 10.0-50.0 % Monocytes (%) (Auto) 8.1 0.0-12.0 % Eosinophils (%) (Auto) 1.3 0.0-7.0 % Basophils (%) (Auto) 1.4 0.0-2.0 % Neutrophils # (Auto) 2.5 1.6-8.6 10 ^3/uL Lymphocytes # (Auto) 1.2 0.4-5.4 10 ^3/uL Monocytes # (Auto) 0.3 0-1.3 10 ^3/uL Eosinophils # (Auto) 0.1 0-0.8 10 ^3/uL Basophils # (Auto) 0.1 0-0.2 10 ^3/uL Nucleated Red Blood Cells 0.1 % Prothrombin Time 11.3 9.3-11.8 sec Prothrombin Time INR 1.07 0.9-1.15 Activated Partial Thromboplast Time 26.8 24.5-34.5 SEC Sodium Level 136 136-145 mmol/L Potassium Level 3.9 3.5-5.1 mmol/L Chloride Level 100 98-107 mmol/L Carbon Dioxide Level 26 20-31 mmol/L Anion Gap 10 5-15 Blood Urea Nitrogen 9 9-23 mg/dL Creatinine 1.37 H 0.700-1.30 mg/dL Glomerular Filtration Rate Calc 69 >90 mL/min BUN/Creatinine Ratio 6.6 L 10.0-20.0 Serum Glucose 142 H 74-106 mg/dL Calcium Level 10.7 H 8.7-10.4 mg/dL The patient's CBC and chemistry panel are within normal limits An IV Hep-Lock was established The patient was given Protonix 40 mg IV push At this time, the patient was being admitted to the hospitalist Time of 1ST Reevaluation: 13:38 Reevaluation 1ST: Unchanged Patient Education/Counseling: Diagnosis, Treatment, Prognosis, Need For Follow Up Family Education/Counseling: No Family Present Departure 1 Departure Time of Disposition: 14:45 Impression: Primary Impression: GI bleed Qualified Codes: K92.2 - Gastrointestinal hemorrhage, unspecified Additional Impression: Brain cancer Qualified Codes: C71.9 - Malignant neoplasm of brain, unspecified Disposition: 01 HOME / SELF CARE / HOMELESS Condition: Fair Discharged With: Self Critical Care Note Critical Care Time?: No Stability Stability form required: No Heart Score Heart Score: Heart Score Response (Comments) Value History N/A 0 EKG N/A 0 Age N/A 0 Risk Factors N/A 0 Troponin N/A 0 Total 0 I personally scribed for MOIRA MADDOX MD ([email or web address]) on 08/06/24 at 13:15. Electronically submitted by Edgar Swartz ([email or web address]). MOIRA MADDOX MD Aug 06, 2024 13:15
[2024-08-06 13:51] LABS: Chloride 100 mmol/L (98-107); Potassium 3.9 mmol/L (3.5-5.1)
[2024-08-06 13:52] LABS: Anion Gap 10 (5-15); Basophils # (auto) 0.1 10 ^3/uL (0-0.2); Basophils % (auto) 1.4 % (0.0-2.0); Carbon Dioxide 26 mmol/L (20-31); Eosinophils # (auto) 0.1 10 ^3/uL (0-0.8); Eosinophils % (auto) 1.3 % (0.0-7.0); Hematocrit 43.7 % (41.0-53.0); Hemoglobin 14.4 g/dL (13.5-17.5); Lymphocytes # (auto) 1.2 10 ^3/uL (0.4-5.4); Lymphocytes % (auto) 28.9 % (10.0-50.0); Mean Corpuscular Hemoglobin 28.5 pg (28.0-32.0); Mean Corpuscular Volume 86.2 fL (80.0-100.0); Monocytes # (auto) 0.3 10 ^3/uL (0-1.3); Monocytes % (auto) 8.1 % (0.0-12.0); Neutrophils # (auto) 2.5 10 ^3/uL (1.6-8.6); Neutrophils % (auto) 60.3 % (37.0-80.0); Nucleated Red Blood Cells % 0.1 %; Platelet Count (auto) 278 10^3/uL (140-450); Red Blood Cells 5.07 10^6/uL (4.5-5.90); Red Cell Distribution Width 17.9 % (11.8-14.3); White Blood Cell 4.1 10^3/uL (4.4-10.8)
[2024-08-06 13:58] LABS: INR 1.07 (0.9-1.15); Partial Thromboplastin Time 26.8 SEC (24.5-34.5); Prothrombin Time 11.3 sec (9.3-11.8)
[2024-08-06 14:07] LABS: Calcium 10.7 mg/dL (8.7-10.4); Glucose 142 mg/dL (74-106); Sodium 136 mmol/L (136-145)
[2024-08-06 14:24] LABS: BUN/Creatinine Ratio 6.6 (10.0-20.0)
[2024-08-06 14:26] LABS: Blood Urea Nitrogen 9 mg/dL (9-23)
[2024-08-06] MEDS: PANTOPRAZOLE 40 MG/10 ML VIAL INJ IV ONE (15:21)
--- NOTE | 2024-08-06 16:06 | DVHHP2 ---
History of Present Illness Reason for Visit: Hematemesis History of Present Illness This 33-year-old male with past medical history of brain cancer s/p craniotomy, chronic pain syndrome, tobacco use, presents in the ED with a chief complaint of hematemesis. The patient reports hematemesis associated with rectal pain, rectal bleeding, nausea/vomiting, and abdominal pain for the past three days. The patient was admitted at this facility a few weeks ago but left AMA. The patient denies dizziness, lightheadedness, chest pain, shortness of breath, or palpitations. Past Medical History As stated in HPI Past Surgical History Craniotomy Family History Reviewed, non-contributory to the management of this case. Past Social History Tobacco use Denies illicit drug or ETOH Review of Systems Constitutional: Yes: Malaise; No: Fever, Chills, Sweats, Weakness, Other Eyes: No: Pain, Vision change, Conjunctivae inflammation, Eyelid inflammation, Other, Redness ENT: No: Ear pain, Ear discharge, Nose pain, Nose discharge, Nose congestion, Mouth pain, Mouth swelling, Throat pain, Throat swelling, Other Respiratory: No: Cough, Dry, Shortness of breath, SOB with excertion, Wheezing, Hemoptysis, Pleuritic Pain, Sputum, Wheezing, Other Cardiovascular: No: Chest Pain, Palpitations, Orthopnea, Paroxysmal Noc. Dyspnea, Edema, Lt Headedness, Other Gastrointestinal: Nausea, Vomiting, Abdominal Pain, Other (Hematemesis); No: Diarrhea, Constipation, Melena, Hematochezia Genitourinary: No Dysuria, No Frequency, No Incontinence, No Hematuria, No Retention, No Other Musculoskeletal: No: other, neck pain, shoulder pain, arm pain, back pain, hand pain, leg pain, foot pain Skin: No: Rash, Lesions, Jaundice, Bruising, Other Neurological: No: Weakness, Numbness, Incoordination, Change in speech, Confusion, Seizures, Other Allergies: Coded Allergies: Acetaminophen (Verified Allergy, Unknown, 09/02/21) Diphenhydramine (Verified Allergy, Unknown, 09/02/21) Metoclopramide (Verified Allergy, Unknown, 07/16/24) Prochlorperazine (Verified Allergy, Unknown, 07/16/24) Uncoded Allergies: BLEACH (Allergy, Unknown, 09/02/21) MRI CONTRAST (Allergy, Unknown, 09/02/21) Exam Vital Signs Vital Signs Date Time Temp Pulse Resp B/P (MAP) Pulse Ox O2 Delivery O2 Flow Rate FiO2 08/06/24 15:27 97.8 107 17 115/85 (95) 99 97.8 08/06/24 15:27 Room Air* 0 21 General Appearance: Alert, Oriented X3, Cooperative, mild distress HEENT: Atraumatic, PERRLA, EOMI, Mucous membr. moist/pink Respiratory: Clear to auscultation, Normal air movement Cardiovascular: Regular rate, Normal S1, Normal S2 Abdominal: Normal bowel sounds, Soft, No tenderness Extremities: No clubbing, No cyanosis, No edema, Normal pulses Skin: No rashes, No breakdown, No significant lesion Neuro: Normal speech, Normal tone Psych/Mental Status: Mental status NL Labs/Xrays Labs Test 08/06/24 13:27 Range/Units White Blood Count 4.1 L 4.4-10.8 10^3/uL Red Blood Count 5.07 4.5-5.90 10^6/uL Hemoglobin 14.4 13.5-17.5 g/dL Hematocrit 43.7 41.0-53.0 % Mean Corpuscular Volume 86.2 80.0-100.0 fL Mean Corpuscular Hemoglobin 28.5 28.0-32.0 pg Mean Corpuscular Hemoglobin Concent 33.0 32.0-36.0 g/dL Red Cell Distribution Width 17.9 H 11.8-14.3 % Platelet Count 278 140-450 10^3/uL Mean Platelet Volume 8.9 6.9-10.8 fL Neutrophils (%) (Auto) 60.3 37.0-80.0 % Lymphocytes (%) (Auto) 28.9 10.0-50.0 % Monocytes (%) (Auto) 8.1 0.0-12.0 % Eosinophils (%) (Auto) 1.3 0.0-7.0 % Basophils (%) (Auto) 1.4 0.0-2.0 % Neutrophils # (Auto) 2.5 1.6-8.6 10 ^3/uL Lymphocytes # (Auto) 1.2 0.4-5.4 10 ^3/uL Monocytes # (Auto) 0.3 0-1.3 10 ^3/uL Eosinophils # (Auto) 0.1 0-0.8 10 ^3/uL Basophils # (Auto) 0.1 0-0.2 10 ^3/uL Nucleated Red Blood Cells 0.1 % Prothrombin Time 11.3 9.3-11.8 sec Prothrombin Time INR 1.07 0.9-1.15 Activated Partial Thromboplast Time 26.8 24.5-34.5 SEC Sodium Level 136 136-145 mmol/L Potassium Level 3.9 3.5-5.1 mmol/L Chloride Level 100 98-107 mmol/L Carbon Dioxide Level 26 20-31 mmol/L Anion Gap 10 5-15 Blood Urea Nitrogen 9 9-23 mg/dL Creatinine 1.37 H 0.700-1.30 mg/dL Glomerular Filtration Rate Calc 69 >90 mL/min BUN/Creatinine Ratio 6.6 L 10.0-20.0 Serum Glucose 142 H 74-106 mg/dL Calcium Level 10.7 H 8.7-10.4 mg/dL PROCEDURE(s): ABPL - CT AB PEL WO CON-NO ORAL OR IV REASON: hematemesis ORDER NUMBER(s): [id number], ACCESSION NUMBER(s): [id number] Exam: CT CT AB PEL WO CON-NO ORAL OR IV History: hematemesis Comparison Study: CT CT AB PEL WO CON-NO ORAL OR IV on DOS: 11/10/23 Technique: Multidetector spiral CT of the abdomen was performed from lung bases to pubic symphysis. Imaging was performed without IV contrast. Axial, coronal and sagittal multiplanar reformats were obtained from the axial data set by the technologist. Radiation Dose : 1. Abdomen/Pelvis: CTDIvol 12.5 mGy, DLP 658 mGy*cm. Findings: Evaluation of solid organs is limited due to lack of intravenous contrast use. Lung Bases: There is atelectasis/ consolidation in the right middle lobe. Minimal linear atelectasis in the left lower lobe. Visualized heart is unremarkable. Liver: The liver is normal in size. Mild focal fatty infiltration along the falciform ligament. Gallbladder and Biliary Tree: Unremarkable Spleen: Unremarkable Pancreas: The pancreas is grossly normal in appearance. Adrenal Glands: Unremarkable Kidneys: Kidneys are grossly normal without calculi or hydronephrosis. Bladder: Grossly unremarkable for degree of distention. Bowel: The stomach is grossly normal in appearance. Small bowel and colon are normal in caliber and distribution. Mild wall thickening in the descending colon is likely related to poor distention. Normal appendix is visualized in the right lower quadrant without findings of appendicitis. Ascites: Absent Lymphadenopathy: No mesenteric, retroperitoneal or periportal lymphadenopathy. Abdominal Wall and Mesentery: Loss of subcutaneous fat in the anterior abdominal wall in the left lower quadrant of the abdomen is unchanged and may be related t o a prior procedure. Vasculature: The visualized abdominal aorta is normal in size and caliber. Evaluation of abdominal and pelvic vessels is limited due to lack of intravenous contrast. Pelvic Organs: Unremarkable Musculoskeletal: No aggressive focal bony lesions, acute fractures or dislocation. IMPRESSION: Evaluation is limited due to lack of intravenous contrast. 1. No evidence of acute abdominal or pelvic findings. 2. Mild atelectasis/consolidation in the right middle lobe. Assessment/Plan Assessment/Plan # Rule out GI bleed # nausea, Vomiting, ?hematemesis # ?Rectal bleed, ?Hemorrhoids # Acute abdominal pain Admit to Medical Unit Protonix, Carafate Antiemetics GI consult FOBT Clear liquid diet # BOOM on CKD 2 IVF monitor # chronic pain syndrome Morphine, Dilaudid Pregabalin # hx of brain cancer s/p craniotomy # anxiety Alprazolam # tobacco use Nicotine patch Smoking cessation counseled # medical noncompliance Counseled Medical plan discussed with patient and RN Plan discussed with: Patient Date of Service: Aug 06, 2024 Billing Provider: FRANK ROJO Common Visit Codes: [id number] INP/OBS CARE (HIGH) FRANK ROJO Aug 06, 2024 16:06
[2024-08-06] MEDS: ONDANSETRON HCL 4 MG/2 ML VIAL IV PRN (16:17)
[2024-08-06] MEDS: HYDROMORPHONE HCL 1 MG/ML INJ IV PRN (16:18)
[2024-08-06] MEDS: SODIUM CHLORIDE 0.9% 1,000 ML IV SCH (16:30)
[2024-08-06] MEDS: SUCRALFATE 1 GM TAB PO SCH (17:04)
[2024-08-06] MEDS: ALPRAZolam 0.5 MG TAB PO PRN (17:04)
[2024-08-06 17:14] VITALS: TEMP 97.8
[2024-08-06 18:16] VITALS: BP 107/71; PULSE 75; RESP 16; TEMP 97.6; O2SAT 95
[2024-08-06 20:04] LABS: Urine Bacteria MANY /hpf (None Seen); Urine Blood Negative /uL (Negative); Urine Clarity Turbid (Clear); Urine Color Yellow (Yellow); Urine Mucus MANY (None Seen); Urine Protein, UAD 4+ (Negative); Urine Sperm PRESENT /hpf (None Seen); Urine Squamous Epithelial Cell FEW /hpf (<5); Urine Urobilinogen 2 mg/dL (Negative); Urine WBC 4 /HPF (0-3); Urine pH 6.5 (5.0-9.0)
[2024-08-06 21:00] VITALS: BP_SYST 93; BP_SYST 97; BP_DIAS 67; BP_DIAS 68; PULSE 70; PULSE 75; RESP 14; RESP 16; TEMP 97.6; TEMP 98; O2SAT 92; O2SAT 95
[2024-08-06] MEDS: PANTOPRAZOLE 40 MG/10 ML VIAL INJ IV SCH (21:23)
[2024-08-07] VITALS (7 sets, daily range): BP systolic 91–116; BP diastolic 52–82; PULSE 68–96; RESP 14–18; TEMP 97.7–98; O2SAT 94–98
[2024-08-07 05:50] LABS: Hemoglobin 12.1 g/dL (13.5-17.5); Mean Corpuscular Hemoglobin 29.1 pg (28.0-32.0); Mean Corpuscular Hgb Conc. 32.8 g/dL (32.0-36.0); Mean Corpuscular Volume 88.9 fL (80.0-100.0); Platelet Count (auto) 185 10^3/uL (140-450); Red Blood Cells 4.16 10^6/uL (4.5-5.90); Red Cell Distribution Width 17.5 % (11.8-14.3); White Blood Cell 3.5 10^3/uL (4.4-10.8)
[2024-08-07 05:56] LABS: Band Neutrophils % (manual) 0; Basophils % (manual) 0 (0.0-2.0); Blast Cells 0; Metamyelocytes % 0; Myelocytes % 0; Promyelocytes % 0; Reactive Lymphocytes 0
[2024-08-07 06:04] LABS: Alanine Aminotransferase 11 U/L (7-40); Alkaline Phosphatase 66 U/L (46-116); Anion Gap 8 (5-15); Aspartate Aminotransferase 16 U/L (13-40); BUN/Creatinine Ratio 6.2 (10.0-20.0); Bilirubin, Total 0.5 mg/dL (0.2-1.0); Calcium 9.1 mg/dL (8.7-10.4); Carbon Dioxide 26 mmol/L (20-31); Chloride 105 mmol/L (98-107); Glucose 80 mg/dL (74-106); Potassium 4.6 mmol/L (3.5-5.1); Sodium 139 mmol/L (136-145); Total Protein 6.6 g/dL (5.7-8.2)
[2024-08-07 06:06] LABS: Blood Urea Nitrogen 7 mg/dL (9-23)
[2024-08-07 07:05] LABS: Eosinophils % (manual) 2 (0-7); Lymphocytes % (manual) 62 (10.0-50.0); Monocytes % (manual) 11 (0-12)
[2024-08-07 07:06] LABS: Large Platelets FEW
[2024-08-07 07:07] LABS: Platelet Estimate Adequate
[2024-08-07] MEDS: PREGABALIN CAPSULE 75 MG CAP PO SCH (09:43)
[2024-08-07] MEDS: NICOTINE 7MG/24HR TOPICAL PATCH TD SCH (09:43)
--- NOTE | 2024-08-07 12:29 | DVHPNRES ---
Progress Note Date Seen: Aug 07, 2024 Resident Creating Document: AURA BATEMAN RESIDENT Has the PT tested + for MRSA If YES, has PT been informed?: No Medical Necessity Reason Pt with a Central, PICC or Fol: No Subjective Review of Systems A 33-year-old male with a past medical history of brain cancer (status post craniectomy in 2014, followed by chemotherapy and radiation) who presents to the ED with hematemesis and rectorrhagia, associated with rectal pain since 3 days , along with nausea and vomiting The patient denies shortness of breath, diarrhea, fever, or chills. He reports anxiety, which he believes may have contributed to the symptoms. He states that he has been following up at [facility], with his last visit being last year, where he was told he needed another surgery. A CT scan in May reportedly showed no new masses. This is not his first visithe was here previously for similar symptoms and was about to undergo an endoscopy but left against medical advice (AMA) twice He has a history of chronic pain and is prescribed multiple pain and psychiatric medications Past Medical History: Brain cancer (status post craniectomy in 2014, chemotherapy, and radiation). Chronic pain syndrome. Anxiety disorder. Past Surgical History: Craniotomy (2015) for brain cancer. Family History: Denies major medical conditions. Social History: Tobacco smoker. Denies alcohol and recreational drug use. Home meds: fentanyl patches, metoprolol, olanzapine, oxycodone, alprazolam, pantoprazole, and cyclobenzaprine. Patient refused rectal exam, he said the sample was already picked up Objective vital signs Vital Sign Date Time Temp Pulse Resp B/P (MAP) Pulse Ox O2 Delivery O2 Flow Rate FiO2 08/07/24 10:09 70 18 96/52 08/07/24 08:45 97.8 97 97.8 08/07/24 08:00 Room Air* 0 21 Total Intake and Output 08/06/24 08/06/24 08/07/24 15:00 23:00 07:00 Intake Total 100 ml 2200 ml Balance 100 ml 2200 ml medications Current Medications Medications Dose Ordered Sig/[place] Route Start Time Stop Time Status Last Admin Dose Admin Ondansetron HCl 4 mg Q4HP PRN IV 08/06/24 16:00 08/07/24 01:01 4 MG Morphine Sulfate 2 mg Q4HPRN PRN IV 08/06/24 16:00 Pantoprazole Sodium 40 mg BID IV 08/06/24 22:00 08/07/24 09:38 40 MG Sucralfate 1 gm QIDACHS PO 08/06/24 17:00 08/06/24 17:04 1 GM Hydromorphone HCl 0.5 mg Q4HPRN PRN IV 08/06/24 16:00 08/07/24 09:39 0.5 MG Nicotine 1 patch DAILY TD 08/07/24 10:00 Pregabalin 75 mg DAILY PO 08/07/24 10:00 Alprazolam 2 mg TID PRN PO 08/06/24 16:15 08/07/24 06:34 2 MG Sodium Chloride 1,000 ml @ 100 mls/hr Q10H IV 08/06/24 16:00 08/07/24 05:27 100 MLS/HR Examination General Appearance: Alert, Oriented X3, Cooperative, mild distress HEENT: Atraumatic, PERRLA, EOMI, Mucous membranes: moist/pink Respiratory: Clear to auscultation, Normal air movement Cardiovascular: Regular rate, Normal S1, Normal S2 Abdominal: Normal bowel sounds, Soft, No tenderness Extremities: No clubbing, No cyanosis, No edema, Normal pulses Skin: No rashes, No breakdown, No significant lesion Neuro: Normal speech, Normal tone Psych/Mental Status: Mental status NL laboratory and microbiology Laboratory Tests 08/07/24 04:55 Test 08/07/24 04:55 Range/Units Serum Glucose 80 74-106 mg/dL Labs and/or images reviewed: Labs reviewed by me, Image(s) reviewed by me Problem List/Assessment/Plan Problem List/Assessment/Plan #Rule out GI bleed? #Hematemesis #Rectorrhagia #Hemorrhoids? #Normocytic anemia; most likely acute blood loss anemia due to drop in hemoglobin with suspected GI bleed #Intractable emesis #BOOM possible VMN #Brain cancer s/p craniotomy; no active issues #Anxiety #Chronic pain #Tobacco use disorder #Leukopenia; unclear etiology #Suspected UTI Reviewed urinalysis; send urine culture; started in IV ceftriaxone Counseled on tobacco use cessation for 17 minutes Med/surg Clear liquid diet Pantoprazole 40 mg BID Oxycodone PRN due to pain SOB negative IV fluids Zofran PRN Surgery and GI consult Goals of care discussed with the patient for 20 minutes; full code Case discussed with Dr Casey Plan discussed with: Patient, Other (rn) My Orders My Orders Orders - AURA BATEMAN RESIDENT Procedure Category Date Status Time * Surgical Consult CONS 08/07/24 Transmitted Addendum Addendum Addendum I was physically present for the arnold portions of the service provided to patient by THE RESIDENT. I have reviewed the documentation, discussed the case with resident and agree with the resident's documentation except as noted. Also the patient's clinical case was discussed with the patient's nurse. This medical document was created using an electronic medical record system with computerized dictation system. Although this document has been carefully reviewed, there might still be some phonetic and typographical errors. These areas are purely typographical due to imperfections of the software programs, and do not reflect any compromise in the patient's medical care. Late signature. Date of Service: Aug 07, 2024 Billing Provider: PEREZ CASEY MD Common Visit Codes: [id number] INP/OBS CARE(HIGH) Secondary Visit Codes: [id number] CHNG SMOKING >10MIN (17 minutes), 57951- ADVANCED CARE PLAN 30 MINUTES (20 minutes) AURA BATEMAN Aug 07, 2024 12:29 PEREZ CASEY MD Aug 07, 2024 22:23
[2024-08-07] MEDS: MORPHINE SULFATE INJ 2 MG/ml SYRG IV PRN ×2 (13:30→18:54)
[2024-08-07] MEDS ORDERED: HYDROcodone-ACET 5/325MG TAB PO PRN (14:45)
[2024-08-07] MEDS: oxyCODONE HCL 5MG TAB PO PRN (20:56)
[2024-08-07] MEDS: cefTRIAXone 1GM/50ML D5W 50 ML IV ONE (23:16)
[2024-08-08] VITALS (9 sets, daily range): BP systolic 90–118; BP diastolic 56–81; PULSE 53–85; RESP 14–20; TEMP 97.8–98.3; O2SAT 94–100
[2024-08-08 07:15] LABS: Albumin 3.7 g/dL (3.2-4.8); Alkaline Phosphatase 60 U/L (46-116); Anion Gap 6 (5-15); Aspartate Aminotransferase 15 U/L (13-40); Calcium 8.9 mg/dL (8.7-10.4); Carbon Dioxide 29 mmol/L (20-31); Glucose 82 mg/dL (74-106); Potassium 4.1 mmol/L (3.5-5.1); Sodium 144 mmol/L (136-145); Total Protein 6.1 g/dL (5.7-8.2)
[2024-08-08 07:16] LABS: Basophils # (auto) 0.1 10 ^3/uL (0-0.2); Basophils % (auto) 2.2 % (0.0-2.0); Eosinophils # (auto) 0.2 10 ^3/uL (0-0.8); Eosinophils % (auto) 5.9 % (0.0-7.0); Hematocrit 36.8 % (41.0-53.0); Lymphocytes # (auto) 1.5 10 ^3/uL (0.4-5.4); Lymphocytes % (auto) 54.8 % (10.0-50.0); Mean Corpuscular Hemoglobin 28.1 pg (28.0-32.0); Mean Corpuscular Hgb Conc. 32.5 g/dL (32.0-36.0); Mean Corpuscular Volume 86.5 fL (80.0-100.0); Monocytes # (auto) 0.3 10 ^3/uL (0-1.3); Monocytes % (auto) 11.2 % (0.0-12.0); Neutrophils # (auto) 0.7 10 ^3/uL (1.6-8.6); Neutrophils % (auto) 25.9 % (37.0-80.0); Nucleated Red Blood Cells % 0.4 %; Platelet Count (auto) 183 10^3/uL (140-450); Red Blood Cells 4.26 10^6/uL (4.5-5.90); White Blood Cell 2.8 10^3/uL (4.4-10.8)
[2024-08-08 07:19] LABS: Alanine Aminotransferase 9 U/L (7-40); BUN/Creatinine Ratio 5.1 (10.0-20.0); Bilirubin, Total 0.2 mg/dL (0.2-1.0); Blood Urea Nitrogen < 5 mg/dL (9-23); Chloride 109 mmol/L (98-107)
[2024-08-08] MEDS: cefTRIAXone 1GM/50ML D5W 50 ML IV SCH (09:27)
--- NOTE | 2024-08-08 11:08 | DVHPNRES ---
Progress Note Date Seen: Aug 08, 2024 Resident Creating Document: AURA BATEMAN RESIDENT Has the PT tested + for MRSA If YES, has PT been informed?: No Medical Necessity Reason Pt with a Central, PICC or Fol: No Subjective Review of Systems A 33-year-old male with a past medical history of brain cancer (status post craniectomy in 2014, followed by chemotherapy and radiation) who presents to the ED with hematemesis and rectorrhagia, associated with rectal pain since 3 days , along with nausea and vomiting The patient denies shortness of breath, diarrhea, fever, or chills. He reports anxiety, which he believes may have contributed to the symptoms. He states that he has been following up at [facility], with his last visit being last year, where he was told he needed another surgery. A CT scan in May reportedly showed no new masses. This is not his first visithe was here previously for similar symptoms and was about to undergo an endoscopy but left against medical advice (AMA) twice He has a history of chronic pain and is prescribed multiple pain and psychiatric medications Past Medical History: Brain cancer (status post craniectomy in 2014, chemotherapy, and radiation). Chronic pain syndrome. Anxiety disorder. Past Surgical History: Craniotomy (2015) for brain cancer. Family History: Denies major medical conditions. Social History: Tobacco smoker. Denies alcohol and recreational drug use. Home meds: fentanyl patches, metoprolol, olanzapine, oxycodone, alprazolam, pantoprazole, and cyclobenzaprine. Patient refused rectal exam, he said the sample was already picked up Patient today stated rectorrhagia again and hematemesis: GI rounded today possible scope tomorrow Objective vital signs Vital Sign Date Time Temp Pulse Resp B/P (MAP) Pulse Ox O2 Delivery O2 Flow Rate FiO2 08/08/24 09:29 73 16 100/66 08/08/24 09:00 97.9 97 97.9 08/07/24 20:03 Room Air* 0 21 Total Intake and Output 08/07/24 08/07/24 08/08/24 15:00 23:00 07:00 Intake Total 800 ml 1300 ml 2070 ml Balance 800 ml 1300 ml 2070 ml medications Current Medications Medications Dose Ordered Sig/[place] Route Start Time Stop Time Status Last Admin Dose Admin Ondansetron HCl 4 mg Q4HP PRN IV 08/06/24 16:00 08/07/24 21:52 4 MG Pantoprazole Sodium 40 mg BID IV 08/06/24 22:00 08/08/24 09:27 40 MG Nicotine 1 patch DAILY TD 08/07/24 10:00 Pregabalin 75 mg DAILY PO 08/07/24 10:00 Alprazolam 2 mg TID PRN PO 08/06/24 16:15 08/08/24 06:30 2 MG Sodium Chloride 1,000 ml @ 100 mls/hr Q10H IV 08/06/24 16:00 08/08/24 02:25 100 MLS/HR Oxycodone HCl 10 mg TID PRN PO 08/07/24 14:45 08/07/24 20:56 10 MG Morphine Sulfate 2 mg Q4HPRN PRN IV 08/07/24 18:30 08/08/24 09:29 2 MG Ceftriaxone Sodium 50 ml @ 100 mls/hr DAILY@09 IV 08/08/24 09:00 08/08/24 09:27 100 MLS/HR Sucralfate 1 gm QID@0600,1130,1700,2200 PO 08/08/24 11:30 Examination General Appearance: Alert, Oriented X3 HEENT: Atraumatic, PERRLA, EOMI, Mucous membranes: moist/pink Respiratory: Clear to auscultation, Normal air movement Cardiovascular: Regular rate, Normal S1, Normal S2 Abdominal: Normal bowel sounds, Soft, No tenderness Extremities: No clubbing, No cyanosis, No edema, Normal pulses Skin: No rashes, No breakdown, No significant lesion Neuro: Normal speech, Normal tone Psych/Mental Status: Mental status NL laboratory and microbiology Laboratory Tests 08/08/24 05:51 Test 08/08/24 05:51 Range/Units Serum Glucose 82 74-106 mg/dL Microbiology Date/Time Source Procedure Growth Status 08/06/24 18:16 Nose MRSA Screen - Final Complete Labs and/or images reviewed: Labs reviewed by me, Image(s) reviewed by me Problem List/Assessment/Plan Problem List/Assessment/Plan #Rule out GI bleed? #Hematemesis #Rectorrhagia #Hemorrhoids? #Normocytic anemia; most likely acute blood loss anemia due to drop in hemoglobin with suspected GI bleed #Intractable emesis #BOOM possible VMN #Brain cancer s/p craniotomy; no active issues #Anxiety #Chronic pain #Tobacco use disorder #Leukopenia; unclear etiology #Suspected UTI Reviewed urinalysis; urine culture pending; IV ceftriaxone Counseled on tobacco use cessation Med/surg NPO per GI Pantoprazole 40 mg BID Oxycodone PRN due to pain SOB negative IV fluids Zofran PRN Surgery and GI consult: possible scope today Full code Case discussed with Dr. Casey Plan discussed with: Patient, Other (Nurse) My Orders My Orders Orders - AURA BATEMAN Procedure Category Date Status Time Oxycodone Immediate PHA 08/07/24 In Process Rel Tablet 14:45 * Surgical Consult CONS 08/07/24 Transmitted 17:55 Sucralfate Susp PHA 08/08/24 In Process (Carafate Susp) 11:30 Addendum Addendum Addendum I was physically present for the arnold portions of the service provided to patient by THE RESIDENT. I have reviewed the documentation, discussed the case with resident and agree with the resident's documentation except as noted. Also the patient's clinical case was discussed with the patient's nurse. This medical document was created using an electronic medical record system with computerized dictation system. Although this document has been carefully reviewed, there might still be some phonetic and typographical errors. These areas are purely typographical due to imperfections of the software programs, and do not reflect any compromise in the patient's medical care. Late signature. Date of Service: Aug 08, 2024 Billing Provider: PEREZ CASEY MD Common Visit Codes: [id number] INP/OBS CARE(HIGH) AURA BATEMAN RESIDENT Aug 08, 2024 11:08 PEREZ CASEY MD Aug 08, 2024 19:33
[2024-08-08] MEDS: SUCRALFATE 1 GM/10 ML ORAL SUSP PO SCH (12:07)
--- NOTE | 2024-08-08 13:35 | DVHINCON2 ---
GI Consult Consult Note GI consult note Date of Consultation: 08/08/2024 Chief Complaint: Rule out GI bleed Referring Physician:Nga RAMOS H&P: 33-year-old male presented to ER with hematemesis and rectal bleeding Patient has been seen by GI multiple times for similar symptoms in the past Patient complains of abdominal pain mostly in the upper abdomen Patient has nausea vomiting with hematemesis on and off for the past five days Patient also complains of red blood rectally, complaining of rectal pain and has history of hemorrhoids Patient takes Protonix on an everyday basis. No EGD in the past. Patient signed out AMA when he was scheduled for the last procedure Patient is asking for more pain medications. Denies marijuana use Past Medical History: Brain cancer (status post craniectomy in 2015, chemotherapy, and radiation). Chronic pain syndrome. Anxiety disorder. Past Surgical History: Craniotomy Social History: NO smoking, drinking ETOH and use of illegal drugs. Family History: Noncontributory Review of Systems: Constitutional: no fever, chill, weight loss Heart: no chest pain, no chest pressure Lung: no cough, no dyspnea with exertion Abdomen: see HPI Physical exam: General: NAD, AAOX3 Chest: lung sandoval clear to auscultation Heart: RRR, no murmur Abdomen: Comb-xy-[id number] generalized tenderness to palpation, +BS Labs: Test 08/08/24 05:51 Range/Units Serum Glucose 82 74-106 mg/dL Microbiology Date/Time Source Procedure Growth Status 08/06/24 18:16 Nose MRSA Screen - Final Complete Imaging: CT abdomen pelvis 07/16/2024 IMPRESSION: Evaluation is limited due to lack of intravenous contrast. 1. No evidence of acute abdominal or pelvic findings. 2. Mild atelectasis/consolidation in the right middle lobe. Assessment: Abdominal pain GI bleed Possible hemorrhoids Chronic pain Plan: Discussed with Dr. Hughes - Pt will be scheduled for an EGD today 08/08/2024. Pt was informed of the risks (bleeding, infection, perforation, reaction to sedation medications and cardiopulmonary arrest) and benefit and is agreeable to undergo the procedures. Continue Protonix and Carafate Anusol suppositories Further recommendations after procedure Discussed plan with patient and RN Thank you for this consult Date of Service: Aug 08, 2024 Billing Provider: LUIS MIRANDA Common Visit Codes: CONSULT ONLY Consultation Codes: [id number] CONSULT <60MIN LUIS MIRANDA Aug 08, 2024 13:35
--- NOTE | 2024-08-08 13:42 | DVH ---
EXAM: XY CHEST PORTABLE Indication: Pain Technique: Single frontal view of the chest was obtained Comparison: XY CHEST XRAY 1 VIEW on DOS: 07/16/24 FINDINGS: Lines and Tubes: None Lungs: No focal consolidation. Pleura: No effusion. No pneumothorax. Cardiomediastinal contours: Unremarkable Bones: No acute osseous abnormality. IMPRESSION: No acute cardiopulmonary disease.
[2024-08-08] MEDS ORDERED: fentaNYL CITRATE 100 MCG/2 ML VL ONE (14:28)
[2024-08-08] MEDS ORDERED: LIDOCAINE 2% (LOCAL ANESTH.) PF 5ml SDV ONE (14:29)
[2024-08-08] MEDS ORDERED: ONDANSETRON HCL 4 MG/2 ML VIAL ONE (14:29)
[2024-08-08] MEDS ORDERED: GLYCOPYRROLATE 0.2 MG/ML 1ML VIAL ONE (14:29)
[2024-08-08] MEDS ORDERED: PROPOFOL 10 MG/ML 20 ML IV ONE (14:29)
[2024-08-08] MEDS ORDERED: MIDAZOLAM HCL 2MG/2ML 2ml VIAL (1mg/ml) ONE (14:29)
[2024-08-08] MEDS: HYDROCORTISONE ACET 25 MG RECTAL SUPP PR ONE (14:45)
--- NOTE | 2024-08-08 14:59 | DVHOP2 ---
Operative Report DATE OF OPERATION: 08/08/24 PROCEDURE: Upper Endoscopy with biopsy. PREOPERATIVE INDICATION: The patient is a 33 -year-old male undergoing endoscopy for epigastric pain and upper GI bleed POSTOPERATIVE DIAGNOSES: 1. 3-4 cm sliding-type hiatal hernia with grade B linear erosive esophagitis 2. Mild gastritis otherwise normal examination up to the 2nd and 3rd part of the duodenum 3. Otherwise normal examination of the 2nd and 3rd part of the duodenum with no fresh or old blood in the GI tract at this time PROCEDURE PERFORMED BY: Yoly Hughes GI NURSE: Kiki SCOPE: Olympus videoendoscope. ASA CLASS: 3. PREOPERATIVE MEDICATIONS: Mac sedation, Dr. Dobbs PROCEDURE IN DETAIL: After obtaining an informed consent, the patient was placed on left lateral decubitus position. The patient was then sedated with the above medications. A bite block was placed between his teeth. The endoscope was then passed through the oropharynx, into the esophagus, and through the stomach and pylorus up to the second and third part of the duodenum. The endoscope was then withdrawn. The 2nd and 3rd part of the duodenal and the duodenal bulb were normal. Duodenal biopsies were obtained The pre-pyloric area antrum and body showed mild gastritis. Gastric biopsies were obtained. There was no fresh or old blood in the upper GI On retroflexion and straight on view the fundus and cardia were normal. The endoscope was then withdrawn into the esophagus Patient had a 3-4 cm sliding-type hiatal hernia with the acute grade A to B linear erosive esophagitis that was healing The remaining distal and proximal esophagus showed some tertiary contraction and oropharynx was normal The patient tolerated the procedure well without difficulty. COMPLICATIONS : None SPECIMENS: Gastric biopsies Antral biopsies DISPOSITION: Transfer back to the floor D/C to home PLAN: 1. Await for biopsy result 2. Will place pt on Protonix 40 mg bid 3. Carafate 1 g p.o. twice a day 4. Start soft mechanical diet advance as tolerated 5. Outpatient follow up with me in 4-6 weeks to review results and discuss further management YOLY HUGHES MD Aug 08, 2024 14:59
[2024-08-09 01:00] VITALS: BP 94/58; PULSE 67; RESP 18; TEMP 98; O2SAT 90
[2024-08-09 05:00] VITALS: BP 90/56; PULSE 76; RESP 20; TEMP 97.9; O2SAT 92
[2024-08-09 06:57] LABS: Albumin 3.3 g/dL (3.2-4.8); Alkaline Phosphatase 63 U/L (46-116); Anion Gap 9 (5-15); Aspartate Aminotransferase 18 U/L (13-40); Calcium 8.8 mg/dL (8.7-10.4); Carbon Dioxide 25 mmol/L (20-31); Glucose 80 mg/dL (74-106); Potassium 4.3 mmol/L (3.5-5.1); Sodium 142 mmol/L (136-145)
[2024-08-09 07:00] LABS: Alanine Aminotransferase 9 U/L (7-40); Bilirubin, Total 0.2 mg/dL (0.2-1.0); Blood Urea Nitrogen < 5 mg/dL (9-23); Chloride 108 mmol/L (98-107); Total Protein 5.4 g/dL (5.7-8.2)
[2024-08-09 08:00] VITALS: PULSE 58; RESP 20; O2SAT 96
[2024-08-09 08:37] VITALS: BP 94/63; PULSE 58; RESP 20; TEMP 97.9; O2SAT 96
[2024-08-09 09:06] LABS: Basophils # (auto) 0.1 10 ^3/uL (0-0.2); Basophils % (auto) 2.1 % (0.0-2.0); Eosinophils # (auto) 0.2 10 ^3/uL (0-0.8); Eosinophils % (auto) 6.2 % (0.0-7.0); Hematocrit 34.7 % (41.0-53.0); Hemoglobin 11.2 g/dL (13.5-17.5); Lymphocytes # (auto) 1.2 10 ^3/uL (0.4-5.4); Lymphocytes % (auto) 37.8 % (10.0-50.0); Mean Corpuscular Hemoglobin 27.9 pg (28.0-32.0); Mean Corpuscular Hgb Conc. 32.2 g/dL (32.0-36.0); Mean Corpuscular Volume 86.6 fL (80.0-100.0); Monocytes # (auto) 0.3 10 ^3/uL (0-1.3); Monocytes % (auto) 10.7 % (0.0-12.0); Neutrophils # (auto) 1.3 10 ^3/uL (1.6-8.6); Neutrophils % (auto) 43.2 % (37.0-80.0); Nucleated Red Blood Cells % 0.1 %; Platelet Count (auto) 183 10^3/uL (140-450); Red Blood Cells 4.01 10^6/uL (4.5-5.90); Red Cell Distribution Width 18.2 % (11.8-14.3); White Blood Cell 3.1 10^3/uL (4.4-10.8)
[2024-08-09] MEDS ORDERED: PANT40TA2 PO (10:53)
[2024-08-09] MEDS ORDERED: HYDR5CRE3 PR (10:59)
[2024-08-09 11:09] VITALS: BP 94/63; PULSE 58; RESP 20; TEMP 97.9; O2SAT 96
--- NOTE | 2024-08-09 17:18 | DVHDSRES ---
Discharge Summary Date of Admission Resident Creating Document: AURA BATEMAN RESIDENT Aug 06, 2024 at 15:46 Date of Discharge: Aug 09, 2024 Admitting Diagnosis Hematemesis, rectal pain, and nausea/vomiting for 3 days Labs/Diagnostic Data: Laboratory Results Test 08/09/24 08:26 08/09/24 05:25 08/07/24 04:55 08/06/24 22:12 White Blood Count 3.1 10^3/uL (4.4-10.8) Red Blood Count 4.01 10^6/uL (4.5-5.90) Hemoglobin 11.2 g/dL (13.5-17.5) Hematocrit 34.7 % (41.0-53.0) Mean Corpuscular Volume 86.6 fL (80.0-100.0) Mean Corpuscular Hemoglobin 27.9 pg (28.0-32.0) Mean Corpuscular Hemoglobin Concent 32.2 g/dL (32.0-36.0) Red Cell Distribution Width 18.2 % (11.8-14.3) Platelet Count 183 10^3/uL (140-450) Mean Platelet Volume 9.0 fL (6.9-10.8) Neutrophils (%) (Auto) 43.2 % (37.0-80.0) Lymphocytes (%) (Auto) 37.8 % (10.0-50.0) Monocytes (%) (Auto) 10.7 % (0.0-12.0) Eosinophils (%) (Auto) 6.2 % (0.0-7.0) Basophils (%) (Auto) 2.1 % (0.0-2.0) Neutrophils # (Auto) 1.3 10 ^3/uL (1.6-8.6) Lymphocytes # (Auto) 1.2 10 ^3/uL (0.4-5.4) Monocytes # (Auto) 0.3 10 ^3/uL (0-1.3) Eosinophils # (Auto) 0.2 10 ^3/uL (0-0.8) Basophils # (Auto) 0.1 10 ^3/uL (0-0.2) Nucleated Red Blood Cells 0.1 % Sodium Level 142 mmol/L (136-145) Potassium Level 4.3 mmol/L (3.5-5.1) Chloride Level 108 mmol/L (98-107) Carbon Dioxide Level 25 mmol/L (20-31) Anion Gap 9 (5-15) Blood Urea Nitrogen < 5 mg/dL (9-23) Creatinine 1.01 mg/dL (0.700-1.30) Glomerular Filtration Rate Calc 100 mL/min (>90) BUN/Creatinine Ratio 5.0 (10.0-20.0) Serum Glucose 80 mg/dL (74-106) Calcium Level 8.8 mg/dL (8.7-10.4) Total Bilirubin 0.2 mg/dL (0.2-1.0) Aspartate Amino Transferase (AST) 18 U/L (13-40) Alanine Aminotransferase (ALT) 9 U/L (7-40) Alkaline Phosphatase 63 U/L (46-116) Total Protein 5.4 g/dL (5.7-8.2) Albumin 3.3 g/dL (3.2-4.8) Differential Total Cells Counted 100.0 (100) Neutrophils % (Manual) 25 (37.0-80.0) Band Neutrophils % (Manual) 0 Lymphocytes % (Manual) 62 (10.0-50.0) Monocytes % (Manual) 11 (0-12) Eosinophils % (Manual) 2 (0-7) Basophils % (Manual) 0 (0.0-2.0) Metamyelocytes % (manual) 0 Myelocytes % (Manual) 0 Promyelocytes % (Manual) 0 Blast Cells % (Manual) 0 Reactive Lymphocytes 0 Platelet Estimate Adequate Large Platelets Few Stool Occult Blood Negative (Negative) Stool Occult Blood Sample #3 (Negative) Test 08/06/24 19:42 08/06/24 13:27 Urine Color Yellow (Yellow) Urine Clarity Turbid (Clear) Urine pH 6.5 (5.0-9.0) Urine Specific [place] 1.040 (1.001-1.035) Urine Protein 4+ (Negative) Urine Ketones Trace (Negative) Urine Blood Negative /uL (Negative) Urine Nitrite Negative (Negative) Urine Bilirubin Negative (Negative) Urine Urobilinogen 2 mg/dL (Negative) Urine Leukocyte Esterase Negative /uL (Negative) Urine RBC 13 /hpf (0 - 3) Urine Microscopic WBC 4 /HPF (0-3) Urine Squamous Epithelial Cells Few /hpf (<5) Urine Bacteria Many /hpf (None Seen) Urine Mucus Many (None Seen) Urine Sperm Present /hpf (None Seen) Urine Glucose Normal mg/dL (Normal) Prothrombin Time 11.3 sec (9.3-11.8) Prothrombin Time INR 1.07 (0.9-1.15) Activated Partial Thromboplast Time 26.8 SEC (24.5-34.5) Other Laboratory Tests 08/09/24 08:26 08/09/24 05:25 Brief Hx & Hospital Course: A 33-year-old male with PMHx of brain cancer s/p craniectomy in 2014 (followed by chemotherapy and radiation), chronic pain syndrome, anxiety disorder, and tobacco use disorder presented with hematemesis, rectal pain, and nausea/vomiting for 3 days. He has a long-standing history of chronic pain and is on multiple home medications including fentanyl patches, oxycodone, and alprazolam. On admission, he was found to have normocytic anemia likely secondary to acute blood loss, BOOM (possible volume-mediated), and leukopenia. CT imaging showed no new masses, and GI and surgical teams were consulted. EGD revealed a 3.4 cm hiatal hernia with grade B erosive esophagitis and mild gastritis but no evidence of active GI bleeding. No complications occurred during the procedure. Also patient was found with possible UTI and treated with IV AB He was managed with IV fluids, PPI therapy, PRN pain and antiemetic meds, and started on sucralfate and a soft mechanical diet post-EGD. Biopsies were taken and are pending at discharge. Fu as outpatient for results. Patient remained hemodynamically stable and tolerated oral intake prior to discharge. He was advised to continue pantoprazole and sucralfate, and to follow up outpatient with GI in 46 weeks to review biopsy results. Given the ongoing rectal pain and history of hematochezia, he was also advised to follow up with surgery for possible hemorrhoids. Physical examination on day of discharge: General Appearance: Alert, Oriented X3 HEENT: Atraumatic, PERRLA, EOMI, Mucous membranes: moist/pink Respiratory: Clear to auscultation, Normal air movement Cardiovascular: Regular rate, Normal S1, Normal S2 Abdominal: Normal bowel sounds, Soft, No tenderness Extremities: No clubbing, No cyanosis, No edema, Normal pulses Skin: No rashes, No breakdown, No significant lesion Neuro: Normal speech, Normal tone Psych/Mental Status: Mental status NL Case discussed with Dr. Casey Consults/Reason for consult GI due to hematemesis Operations or Procedures DATE OF OPERATION: 08/08/24 PROCEDURE: Upper Endoscopy with biopsy. PREOPERATIVE INDICATION: The patient is a 33 -year-old male undergoing endoscopy for epigastric pain and upper GI bleed POSTOPERATIVE DIAGNOSES: 1. 3-4 cm sliding-type hiatal hernia with grade B linear erosive esophagitis 2. Mild gastritis otherwise normal examination up to the 2nd and 3rd part of the duodenum 3. Otherwise normal examination of the 2nd and 3rd part of the duodenum with no fresh or old blood in the GI tract at this time PROCEDURE PERFORMED BY: Patricia Hughes GI NURSE: Kiki SCOPE: Olympus videoendoscope. ASA CLASS: 3. PREOPERATIVE MEDICATIONS: Dr. Rinku Blanco PROCEDURE IN DETAIL: After obtaining an informed consent, the patient was placed on left lateral decubitus position. The patient was then sedated with the above medications. A bite block was placed between his teeth. The endoscope was then passed through the oropharynx, into the esophagus, and through the stomach and pylorus up to the second and third part of the duodenum. The endoscope was then withdrawn. The 2nd and 3rd part of the duodenal and the duodenal bulb were normal. Duodenal biopsies were obtained The pre-pyloric area antrum and body showed mild gastritis. Gastric biopsies were obtained. There was no fresh or old blood in the upper GI On retroflexion and straight on view the fundus and cardia were normal. The endoscope was then withdrawn into the esophagus Patient had a 3-4 cm sliding-type hiatal hernia with the acute grade A to B linear erosive esophagitis that was healing The remaining distal and proximal esophagus showed some tertiary contraction and oropharynx was normal The patient tolerated the procedure well without difficulty. COMPLICATIONS : None SPECIMENS: Gastric biopsies Antral biopsies DISPOSITION: Transfer back to the floor D/C to home PLAN: 1. Await for biopsy result 2. Will place pt on Protonix 40 mg bid 3. Carafate 1 g p.o. twice a day 4. Start soft mechanical diet advance as tolerated 5. Outpatient follow up with me in 4-6 weeks to review results and discuss further management Condition at Discharge: Stable Final Diagnosis/Problems List #Rule out GI bleed? #Hematemesis #Rectorrhagia #Hemorrhoids? #Normocytic anemia; most likely acute blood loss anemia due to drop in hemoglobin with suspected GI bleed #Intractable emesis #BOOM possible VMN #Brain cancer s/p craniotomy; no active issues #Anxiety #Chronic pain #Tobacco use disorder #Leukopenia; unclear etiology #Suspected UTI #3-4 cm sliding-type hiatal hernia with grade B linear erosive esophagitis # Mild gastritis otherwise normal examination up to the 2nd and 3rd part of the duodenum Discharge Disposition: Home Discharge Instruct/Medications Diet: See Comment Diet comment: soft diet for 7 days Activity: No Restrictions, As Tolerated Follow Up/Referral: Discharge clinic within one week or primary care provider within a week // GI and surgery as outpatient within 2 to 4 weeks Medications: As per EMR Discharge Statement: "Patient was advised to return to the ER or call 911 if any headaches, dizziness, shortness of breath, chest pain, abdominal pain, bleeding, fevers, or worsening of medical condition. Patient was counseled about treatment plan, medications, possible side effects, patientverbalized understanding. All questions were answered to the best of my ability. This discharge took greater then 30 minutes in planning, reviewing documentation, counseling the patient, and discussing with other team members." ASSESSMENT ASSESSMENT Assessment GI bleeding? Addendum Addendum Addendum I was physically present for the arnold portions of the service provided to patient by THE RESIDENT. I have reviewed the documentation, discussed the case with resident and agree with the resident's documentation except as noted. Also the patient's clinical case was discussed with the patient's nurse. This medical document was created using an electronic medical record system with computerized dictation system. Although this document has been carefully reviewed, there might still be some phonetic and typographical errors. These areas are purely typographical due to imperfections of the software programs, and do not reflect any compromise in the patient's medical care. Late signature. Date of Service: Aug 09, 2024 Billing Provider: PEREZ CASEY MD Common Visit Codes: 51303-MES/OBS DISCH DAY >30min AURA BATEMAN RESIDENT Aug 09, 2024 17:18 PEREZ CASEY MD Aug 10, 2024 06:19
[2024-08-09] MEDS ORDERED: CIPR-173 PO (22:31)
== END 2024-08-09 12:15 | disposition home or self-care (01) | DRG 380 ==
LOC: ER 12:48 → OVERFLOW 15:46 → CENTRAL 18:22
PROVIDERS: ADMIT Internal Medicine; ATTEND Internal Medicine
PROC: 0DB78ZX Excision of Stomach, Pylorus, Via Natural or Artificial Opening Endoscopic, Diagnostic (ICD-10-PCS; 2024-08-08)
PROC: 0DB68ZX Excision of Stomach, Via Natural or Artificial Opening Endoscopic, Diagnostic (ICD-10-PCS; principal; 2024-08-08 14:34)
DX: K22.11 Ulcer of esophagus with bleeding (principal); N17.0 Acute kidney failure with tubular necrosis; C71.9 Malignant neoplasm of brain, unspecified; N39.0 Urinary tract infection, site not specified; J98.11 Atelectasis; D62 Acute posthemorrhagic anemia; K29.71 Gastritis, unspecified, with bleeding; N18.2 Chronic kidney disease, stage 2 (mild); F41.9 Anxiety disorder, unspecified; K64.9 Unspecified hemorrhoids; F17.210 Nicotine dependence, cigarettes, uncomplicated; K44.9 Diaphragmatic hernia without obstruction or gangrene; G89.4 Chronic pain syndrome; Z91.199 Patient's noncompliance with other medical treatment and regimen due to unspecified reason; Z88.6 Allergy status to analgesic agent; Z85.841 Personal history of malignant neoplasm of brain; Z71.6 Tobacco abuse counseling; Z53.29 Procedure and treatment not carried out because of patient's decision for other reasons; Z91.041 Radiographic dye allergy status; Z88.8 Allergy status to other drugs, medicaments and biological substances
CPT/HCPCS: 36415; 71045; 80048; 80053; 81001; 82270; 85007; 85025; 85027; 85610; 85730; 86850; 86900; 86901; 87081; 87086; 96361; 96374; 96375; G0378; J2003; J2250; J2405; J2470; J2704

== ENCOUNTER 2024-08-18 19:22 | Inpatient (IN) | payer OTHER, MEDICAID ==
[~2024-08-18] VITALS: Ht 175.3 cm; Wt 73.9 kg
[~2024-08-18 19:22] MED LIST changes: +CIPR-173 PO; -FENT100D2 TD; +HYDR5CRE3 PR; +PANT40TA2 PO
--- NOTE | 2024-08-18 19:34 | ED.PDOC ---
History of Present Illness HPI Comments 33-year-old male brought in by EMS presents with a chief complaint of chest pain, abdominal pain, and body pain. Patient states that he is having all over body pain. Patient mentions that he has brain, neck, and throat cancer. Patient denies having any treatment at this time. Patient is spitting up sputum upon evaluation, but no bile, food particles, or blood noted. No other symptoms or modifying factors present at this time. Time Seen by MD: 19:28 Primary Care Provider: SOPHIA Reviewed Notes: Medications, Allergies Allergies: Coded Allergies: Acetaminophen (Verified Allergy, Unknown, 09/02/21) Diphenhydramine (Verified Allergy, Unknown, 09/02/21) Metoclopramide (Verified Allergy, Unknown, 07/16/24) Prochlorperazine (Verified Allergy, Unknown, 07/16/24) Uncoded Allergies: BLEACH (Allergy, Unknown, 09/02/21) MRI CONTRAST (Allergy, Unknown, 09/02/21) Home Meds Active Scripts Ciprofloxacin Hcl (Cipro) 500 Mg Tab, 500 MG PO BID for 7 Days, #14 TAB Prov:AURA BATEMAN RESIDENT 08/09/24 Hydrocortisone (Rectal) (Procto-Med Hc) 2.5 % Cre, 2.5 % AK TID for 5 Days, #1 CRE please apply in the anal area 3 times a day Prov:AURA BATEMAN RESIDENT 08/09/24 Pantoprazole Sodium Sesquihydr (Protonix) 40 Mg Tab, 40 MG PO DAILY for 30 Days, #30 TAB Prov:AURA BATEMAN RESIDENT 08/09/24 Reported Medications Promethazine HCl (Promethazine HCl) 6.25 Mg/5 Ml Syp, PO 07/16/24 Pregabalin (Pregabalin) 75 Mg Cap, 1 CAP PO 07/16/24 Oxycodone HCl (Oxycodone Hydrochloride) 30 Mg Tab, 1 TAB PO Q4HPRN PRN for PAIN SCALE 1 THRU 6 11/10/23 Alprazolam (Alprazolam) 2 Mg Tab, 1 TAB PO TID PRN for ANXIETY 11/10/23 Pantoprazole Sodium Sesquihydr (Pantoprazole Sodium) 40 Mg Tab, 1 TAB PO BID 11/10/23 Information Source: Patient, Emergency Med Personnel Mode of Arrival: EMS Severity: Moderate Timing: Hours Duration: Since onset Prehospital treatment: None Past Medical History PAST MEDICAL HISTORY: Cancer Surgical History: Denies all surgeries Family History Family History: Reviewed,noncontributory to illness Social History Smoker: Cigarettes Alcohol: Denies ETOH Use Drugs: Denies Drug Use Lives In: Home Constitutional: denies: chills, diaphoresis, fatigue, fever, malaise, sweats, weakness, others EENTM: denies: blurred vision, double vision, ear bleeding, ear discharge, ear drainage, ear pain, ear ringing, eye pain, eye redness, hearing loss, mouth pain, mouth swelling, nasal discharge, nose bleeding, nose congestion, nose pain, photophobia, tearing, throat pain, throat swelling, voice changes, others Respiratory: denies: cough, hemoptysis, orthopnea, SOB at rest, shortness of breath, SOB with excertion, stridor, wheezing, others Cardiovascular: reports: chest pain; denies: dizzy spells, diaphoresis, Dyspnea on exertion, edema, irregular heart beat, left arm pain, lightheadedness, palpitations, PND, syncope, others Gastrointestinal: reports: abdominal pain; denies: abdomen distended, blood streaked bowels, constipated, diarrhea, dysphagia, difficulty swallowing, hematemesis, melena, nausea, poor appetite, poor fluid intake, rectal bleeding, rectal pain, vomiting, others Genitourinary: denies: burning, dysuria, flank pain, frequency, hematuria, incontinence, penile discharge, penile sore, pain, testicle pain, testicle swelling, urgency, others Neurological: denies: dizziness, fainting, headache, left sided numbness, left sided weakness, numbness, paresthesia, pre-existing deficit, right sided numbness, right sided weakness, seizure, speech problems, tingling, tremors, weakness, others Musculoskeletal: reports: muscle pain; denies: back pain, gout, joint pain, joint swelling, muscle stiffness, neck pain, others Integumetry: denies: bruises, change in color, change in hair/nails, dryness, laceration, lesions, lumps, rash, wounds, others Allergic/Immunocompromised: denies: Difficulty Healing, Frequent Infections, Hives, Itching, others Hematologic/Lymphatic: denies: anemia, blood clots, easy bleeding, easy bruising, swollen glands, others Endocrine: denies: excessive hunger, excessive sweating, excessive thirst, excessive urination, flushing, intolerance to cold, intolerance to heat, unexplained weight gain, unexplained weight loss, others Psychiatric: denies: anxiety, bipolar disorder, depression, hopeless, panic disorder, schizophrenia, sleepless, suicidal, others All Other Systems: Reviewed and Negative Physical Exam General Appearance: No Apparent Distress, Normal HEENT: Normal ENT Inspection, Pharynx Normal, TMs Normal Neck: Full Range of Motion, Non-Tender, Normal, Normal Inspection Respiratory: Chest Non-Tender, Lungs Clear, No Accessory Muscle Use, No Respiratory Distress, Normal Breath Sounds Cardiovascular: No Edema, No JVD, No Murmur, No Gallop, Normal Peripheral Pulses, Regular Rate/Rhythm Breast Exam: Deferred Gastrointestinal: No Organomegaly, Non Tender, No Pulsatile Mass, Normal Bowel Sounds, Soft Genitalia: Deferred Pelvic: Deferred Rectal: Deferred Extremities: No calf tenderness, Normal capillary refill, Normal inspection, Normal range of motion, Non-tender, No pedal edema Musculoskeletal : Apperance: Normal Neurologic: Alert, debubblizer II-XII nml as Tested, No Motor Deficits, Normal Affect, Normal Mood, No Sensory Deficits Cerebellar Function: Normal Reflexes: Normal Skin: Dry, Normal Color, Warm Lymphatic: No Adenopathy Was a procedure done? Was a procedure done?: No Differential Dx Considerations may include: Differential diagnosis includes but is not limited to: peptic ulcer disease, diverticulosis, esophageal varices, polyps, coagulopathy, symptomatic anemia, hypovolemia and others X-Ray, Labs, Meds, VS Vital Signs Date Time Temp Pulse Resp B/P (MAP) Pulse Ox O2 Delivery O2 Flow Rate FiO2 08/18/24 22:13 62 20 140/96 08/18/24 22:00 88 20 140/96 (111) 93 08/18/24 20:48 63 20 137/92 08/18/24 20:30 80 08/18/24 20:21 67 16 142/99 08/18/24 19:53 62 22 97 Room Air* 0 21 08/18/24 19:53 99.0 62 22 142/99 (113) 97 99.0 08/18/24 19:22 98.5 60 18 155/64 (94) 99 98.5 Lab Test 08/18/24 21:15 08/18/24 20:10 Range/Units White Blood Count 7.7 4.4-10.8 10^3/uL Red Blood Count 5.56 4.5-5.90 10^6/uL Hemoglobin 15.5 13.5-17.5 g/dL Hematocrit 48.7 41.0-53.0 % Mean Corpuscular Volume 87.6 80.0-100.0 fL Mean Corpuscular Hemoglobin 27.9 L 28.0-32.0 pg Mean Corpuscular Hemoglobin Concent 31.9 L 32.0-36.0 g/dL Red Cell Distribution Width 19.0 H 11.8-14.3 % Platelet Count 297 140-450 10^3/uL Mean Platelet Volume 9.7 6.9-10.8 fL Neutrophils (%) (Auto) 84.3 H 37.0-80.0 % Lymphocytes (%) (Auto) 10.6 10.0-50.0 % Monocytes (%) (Auto) 4.8 0.0-12.0 % Eosinophils (%) (Auto) 0.0 0.0-7.0 % Basophils (%) (Auto) 0.3 0.0-2.0 % Neutrophils # (Auto) 6.5 1.6-8.6 10 ^3/uL Lymphocytes # (Auto) 0.8 0.4-5.4 10 ^3/uL Monocytes # (Auto) 0.4 0-1.3 10 ^3/uL Eosinophils # (Auto) 0 0-0.8 10 ^3/uL Basophils # (Auto) 0 0-0.2 10 ^3/uL Nucleated Red Blood Cells 0.1 % Prothrombin Time 11.5 9.3-11.8 sec Prothrombin Time INR 1.09 0.9-1.15 Activated Partial Thromboplast Time 25.4 24.5-34.5 SEC Sodium Level 141 136-145 mmol/L Potassium Level 4.8 3.5-5.1 mmol/L Chloride Level 105 98-107 mmol/L Carbon Dioxide Level 24 20-31 mmol/L Anion Gap 12 5-15 Blood Urea Nitrogen 9 9-23 mg/dL Creatinine 1.15 0.700-1.30 mg/dL Glomerular Filtration Rate Calc 86 >90 mL/min BUN/Creatinine Ratio 7.8 L 10.0-20.0 Serum Glucose 92 74-106 mg/dL Calcium Level 11.5 H 8.7-10.4 mg/dL Total Bilirubin 0.8 0.2-1.0 mg/dL Aspartate Amino Transferase (AST) 25 13-40 U/L Alanine Aminotransferase (ALT) 19 7-40 U/L Alkaline Phosphatase 93 46-116 U/L Troponin I High Sensitivity < 3 L </=54 ng/L Total Protein 9.4 H 5.7-8.2 g/dL Albumin 5.9 H 3.2-4.8 g/dL Lipase 36 12-53 U/L Current Medications Medications (Trade) Dose Ordered Sig/[place] Route Start Time Stop Time Status Last Admin Ondansetron HCl (Zofran) 4 mg ONCE ONCE IV 08/18/24 19:45 08/18/24 19:46 DC 08/18/24 20:20 Sodium Chloride 1,000 ml @ 1,000 mls/hr Q1H ONCE IVB 08/18/24 19:45 08/18/24 20:44 DC 08/18/24 19:45 Morphine Sulfate 4 mg ONCE ONCE IV 08/18/24 19:45 08/18/24 19:46 DC 08/18/24 20:21 Pantoprazole Sodium 50 ml @ 10 mls/hr Q5H ONCE IV 08/18/24 19:45 08/19/24 00:44 08/18/24 20:20 Lorazepam (Ativan Inj) 1 mg ONCE ONCE IV 08/18/24 21:30 08/18/24 21:31 DC 08/18/24 21:23 Hydromorphone HCl (Dilaudid Injection) 1 mg ONCE ONCE IV 08/18/24 22:15 08/18/24 22:16 DC 08/18/24 22:13 Ondansetron HCl (Zofran) 4 mg ONCE ONCE IV 08/18/24 22:15 08/18/24 22:16 DC 08/18/24 22:12 Time of 1ST Reevaluation: 19:58 Reevaluation 1ST: Unchanged Patient Education/Counseling: Diagnosis, Treatment, Prognosis Family Education/Counseling: No Family Present Departure 1 Departure Time of Disposition: 22:42 Impression: Primary Impression: Hematemesis Additional Impressions: UGI bleed Intractable vomiting Dehydration Disposition: 09 ADMITTED INPATIENT Admit to: Med Surg Condition: Guarded Discharged With: Self Comments Upper GI Bleed with Intractable Vomiting Chief Complaint: Nausea and vomiting with blood History of Present Illness: 33-year-old male with significant past medical history of upper GI bleeds and brain tumor presents to the emergency department with a one-day history of nausea and hematemesis. Patient reports blood in his vomit and has been experiencing significant discomfort. Symptoms have persisted during ED observation despite medical intervention. Review of Systems: Constitutional: Positive for nausea and vomiting Gastrointestinal: Positive for hematemesis All other systems reviewed and negative Medications: Current ED medications: - IV morphine for pain - Ondansetron (Zofran) for nausea - Pantoprazole (Protonix) infusion - IV fluids Allergies: No known allergies documented Past Medical History: 1. History of upper GI bleeds 2. Brain tumor (details not specified) 3. No other significant medical history documented Lab Results: CBC: - Hemoglobin: 16 g/dL - Hematocrit: 49% - WBC: 7.7 K/L - Platelets: 297 K/L Chemistry: - BUN: 9 mg/dL - Creatinine: 1.15 mg/dL - Other electrolytes within normal limits Imaging and Other Relevant Results: 1. CT Abdomen/Pelvis: - Shows questionable possible colitis 2. Chest X-ray: - Unremarkable Medical Decision Making: Summary Statement: 33-year-old male with history of GI bleeds presenting with acute onset hematemesis and intractable vomiting, showing signs of upper GI bleed requiring admission. Problem List: 1. Upper GI bleed 2. Intractable vomiting 3. Dehydration 4. Questionable colitis Differential Diagnosis: 1. Peptic ulcer disease 2. Gastritis 3. Leticia-Lee tear 4. Esophageal varices 5. Colitis ED Course: Patient received IV fluids for hydration, morphine for pain control, Zofran for antiemesis, and Protonix infusion for GI bleeding. Despite interventions, symptoms persisted requiring inpatient admission. Assessment and Plan: 1. Upper GI Bleed: - Admit to medical floor - Continue Protonix infusion - GI consultation for possible endoscopy 2. Intractable Vomiting/Dehydration: - Continue IV fluid hydration - Antiemetic therapy - Monitor fluid status and electrolytes 3. Questionable Colitis: - Further evaluation during admission - Monitor for worsening abdominal symptoms Billing Information: ICD-10: K92.0 - Hematemesis ICD-10: R11.2 - Nausea with vomiting, unspecified ICD-10: E86.0 - Dehydration ICD-10: K52.9 - Noninfective gastroenteritis and colitis, unspecified Critical Care Note Critical Care Time?: Yes (35 min-critical care time only) Critical care comment: Total critical care time: Approximately 36 minutes Due to a high probability of clinically significant, life threatening deterioration, the patient required my highest level of preparedness to intervene emergently and I personally spent this critical care time directly and personally managing the patient. This critical care time included obtaining a history; examining the patient; pulse oximetry; ordering and review of studies; arranging urgent treatment with development of a management plan; evaluation of patient's response to treatment; frequent reassessment; and, discussions with other providers. This critical care time was performed to assess and manage the high probability of imminent, life-threatening deterioration that could result in multi-organ failure. It was exclusive of separately billable procedures and treating other patients. Stability Stability form required: No Heart Score Heart Score: Heart Score Response (Comments) Value History N/A 0 EKG N/A 0 Age N/A 0 Risk Factors N/A 0 Troponin N/A 0 Total 0 I personally scribed for SERJIO SOW MD ([email or web address]) on 08/18/24 at 19:34. Electronically submitted by Edgar Swartz ([email or web address]). SERJIO SOW MD Aug 18, 2024 19:34
[2024-08-18] MEDS: SODIUM CHLORIDE 0.9% 1,000 ML IVB ONE (19:45)
[2024-08-18] MEDS: METOCLOPRAMIDE HCL 5MG/ml INJ 2ml VIAL IV ONE (19:45)
[2024-08-18 19:53] VITALS: PULSE 62; RESP 22; O2SAT 97
[2024-08-18] MEDS: PANTOPRAZOLE 40mg/50ML NS AE 50 ML IV ONE (20:20)
[2024-08-18] MEDS: ONDANSETRON HCL 4 MG/2 ML VIAL IV ONE ×3 (20:20→23:51)
[2024-08-18] MEDS: MORPHINE SULFATE 4 MG/ML SYR/VIAL IV ONE (20:21)
[2024-08-18 20:49] LABS: Alanine Aminotransferase 19 U/L (7-40); Alkaline Phosphatase 93 U/L (46-116); Anion Gap 12 (5-15); Aspartate Aminotransferase 25 U/L (13-40); BUN/Creatinine Ratio 7.8 (10.0-20.0); Bilirubin, Total 0.8 mg/dL (0.2-1.0); Carbon Dioxide 24 mmol/L (20-31); Chloride 105 mmol/L (98-107); Glucose 92 mg/dL (74-106); Lipase 36 U/L (12-53); Potassium 4.8 mmol/L (3.5-5.1); Sodium 141 mmol/L (136-145)
[2024-08-18 20:54] LABS: Albumin 5.9 g/dL (3.2-4.8); Blood Urea Nitrogen 9 mg/dL (9-23); Calcium 11.5 mg/dL (8.7-10.4); Total Protein 9.4 g/dL (5.7-8.2)
[2024-08-18] MEDS: LORazepam 2MG/ML-1ML VIAL IV ONE (21:23)
[2024-08-18 21:40] LABS: Basophils # (auto) 0 10 ^3/uL (0-0.2); Basophils % (auto) 0.3 % (0.0-2.0); Eosinophils # (auto) 0 10 ^3/uL (0-0.8); Hematocrit 48.7 % (41.0-53.0); Hemoglobin 15.5 g/dL (13.5-17.5); Lymphocytes # (auto) 0.8 10 ^3/uL (0.4-5.4); Lymphocytes % (auto) 10.6 % (10.0-50.0); Mean Corpuscular Hemoglobin 27.9 pg (28.0-32.0); Mean Corpuscular Hgb Conc. 31.9 g/dL (32.0-36.0); Mean Corpuscular Volume 87.6 fL (80.0-100.0); Monocytes # (auto) 0.4 10 ^3/uL (0-1.3); Monocytes % (auto) 4.8 % (0.0-12.0); Neutrophils # (auto) 6.5 10 ^3/uL (1.6-8.6); Neutrophils % (auto) 84.3 % (37.0-80.0); Nucleated Red Blood Cells % 0.1 %; Platelet Count (auto) 297 10^3/uL (140-450); Red Blood Cells 5.56 10^6/uL (4.5-5.90); White Blood Cell 7.7 10^3/uL (4.4-10.8)
[2024-08-18 21:56] LABS: INR 1.09 (0.9-1.15); Partial Thromboplastin Time 25.4 SEC (24.5-34.5); Prothrombin Time 11.5 sec (9.3-11.8)
[2024-08-18] MEDS: HYDROmorphone HCL 2 MG/ML VL/or syr IV ONE ×2 (22:13→23:52)
--- NOTE | 2024-08-18 22:15 | DVH ---
Exam: CT CT AB PEL WO CON-NO ORAL OR IV History: abd pain, vomiting Comparison Study: None available at time of dictation. TECHNIQUE: Multidetector CT of the abdomen was performed from lung bases to pubic symphysis. Imaging was performed without IV contrast. Axial, coronal and sagittal multiplanar reformats were obtained fr om the axial data set by the technologist. Radiation Dose Information: CT Dose: CTDI volume is 11.42 mGy. Dose-length product is 683.78 mGy*cm FINDINGS: Evaluation of solid organs is limited due to lack of intravenous contrast use. Findings: Lung Bases: No acute or significant lung base finding. Normal heart size. No pleural or pericardial effusion. Liver: The liver is normal in size. No focal lesions. Gallbladder and Biliary Tree: Unremarkable Spleen: Unremarkable Pancreas: The pancreas is grossly normal in appearance. Adrenal Glands: Unremarkable Kidneys: Kidneys are grossly normal without calculi or hydronephrosis. Bladder: Grossly unremarkable for degree of distention. Bowel: The stomach is grossly normal in appearance. Small bowel and colon are normal in caliber and d istribution. Transverse left and sigmoid colons are ovoid of stool with mucosal thickening raising th e question of colitis. The appendix is not visualized; however, no secondary findings of acute appen dicitis identified. Ascites: Absent Lymphadenopathy: No mesenteric, retroperitoneal or periportal lymphadenopathy. Abdominal Wall and Mesentery: Unremarkable. Vasculature: The visualized abdominal aorta is normal in size and caliber. Evaluation of abdominal a nd pelvic vessels is limited due to lack of intravenous contrast. Pelvic Organs: Unremarkable Musculoskeletal: No aggressive focal bony lesions, acute fractures or dislocation. Soft tissues: Unremarkable IMPRESSION: 1. The transverse left and sigmoid colons are all avoid of stool with mucosal thickening. This raises the question of colitis. Correlate with clinical setting. Radiation optimization: All CT scans at this facility use at least one of these dose optimization te chniques: automated exposure control mA and/or kV adjustment per patient size (includes targeted exa ms where dose is matched to clinical indication) or iterative reconstruction.
--- NOTE | 2024-08-18 22:17 | DVH ---
EXAMINATION: AP portable chest radiograph CLINICAL HISTORY: chest pain COMPARISON: XY CHEST PORTABLE on DOS: 08/08/24 FINDINGS: Apices partially obscured by . Lead wires overlie the thorax as well. No dominant consolidations in the visualized lung sandoval. No definite pleural effusion or pneumothora x. The cardiomediastinal silhouette appears within normal limits given technique. IMPRESSION: Limited study. No acute cardiopulmonary findings as visualized.
--- NOTE | 2024-08-18 23:58 | DVHHP2 ---
History of Present Illness Reason for Visit: Abdominal pain History of Present Illness 33-year-old male presents for evaluation of abdominal pain. Patient reports a history of brain, neck and throat cancer. He states currently being seen at [facility] for oncology. He reports a two day history of lower abdominal pain that radiates to his epigastric region with associated bloody emesis. Denies fever or chills. No melena. No cardiac or respiratory symptoms. Past Medical History Cancer Past Surgical History Denies Family History Noncontributory Smoke: <1 pack per day ALCOHOL: none Drugs: None Review of Systems Review of Systems Review of systems are currently negative otherwise addressed in HPI. Allergies: Coded Allergies: Acetaminophen (Verified Allergy, Unknown, 09/02/21) Diphenhydramine (Verified Allergy, Unknown, 09/02/21) Metoclopramide (Verified Allergy, Unknown, 07/16/24) Prochlorperazine (Verified Allergy, Unknown, 07/16/24) Uncoded Allergies: BLEACH (Allergy, Unknown, 09/02/21) MRI CONTRAST (Allergy, Unknown, 09/02/21) Medications Current Medications Medications Dose Ordered Sig/[place] Route Start Time Stop Time Status Last Admin Dose Admin Ondansetron HCl 4 mg Q4HP PRN IV 08/19/24 00:00 Morphine Sulfate 2 mg Q4HPRN PRN IV 08/19/24 00:00 Pantoprazole Sodium 40 mg DAILY IV 08/19/24 10:00 Exam Vital Signs Vital Signs Date Time Temp Pulse Resp B/P (MAP) Pulse Ox O2 Delivery O2 Flow Rate FiO2 08/18/24 23:52 65 18 105/74 08/18/24 22:00 93 08/18/24 19:53 Room Air* 0 21 08/18/24 19:53 99.0 99.0 Exam Gen: 33-year-old male in mild distress Skin: Warm, dry, normal color and texture, no rash. HEENT: Normocephalic atraumatic, mucous membranes moist and pink. Neck: Cervical and supraclavicular nodes normal without enlargement, trachea is midline, thyroid gland is normal without masses. Pulmonary: Clear to auscultation and percussion bilaterally. Cardiac: Regular rate and rhythm. No murmur Abdomen: Soft, epigastric tenderness, nondistended, bowel sounds present all 4 quadrants, no guarding, no rigidity, no organomegaly. Extremities: No cyanosis, clubbing, no edema Neuro: Cranial nerves II through XII grossly intact, normal affect and speech, no focal motor deficits. Labs/Xrays AGE / SEX: 33 / M ADM STATUS: REG ER SERVICE 31 ORDERING PHYSICIAN: SERJIO SOW MD PROCEDURE(s): ABPL - CT AB PEL WO CON-NO ORAL OR IV REASON: abd pain, vomiting ORDER NUMBER(s): [id number], ACCESSION NUMBER(s): [id number] Exam: CT CT AB PEL WO CON-NO ORAL OR IV History: abd pain, vomiting Comparison Study: None available at time of dictation. TECHNIQUE: Multidetector CT of the abdomen was performed from lung bases to pubic symphysis. Imaging was performed without IV contrast. Axial, coronal and sagittal multiplanar reformats were obtained from the axial data set by the technologist. Radiation Dose Information: CT Dose: CTDI volume is 11.42 mGy. Dose-length product is 683.78 mGy*cm FINDINGS: Evaluation of solid organs is limited due to lack of intravenous contrast use. Findings: Lung Bases: No acute or significant lung base finding. Normal heart size. No pleural or pericardial effusion. Liver: The liver is normal in size. No focal lesions. Gallbladder and Biliary Tree: Unremarkable Spleen: Unremarkable Pancreas: The pancreas is grossly normal in appearance. Adrenal Glands: Unremarkable Kidneys: Kidneys are grossly normal without calculi or hydronephrosis. Bladder: Grossly unremarkable for degree of distention. Bowel: The stomach is grossly normal in appearance. Small bowel and colon are normal in caliber and distribution. Transverse left and sigmoid colons are ovoid of stool with mucosal thickening raising the question of colitis. The appendix is not visualized; however, no secondary findings of acute appendicitis identified. Ascites: Absent Lymphadenopathy: No mesenteric, retroperitoneal or periportal lymphadenopathy. Abdominal Wall and Mesentery: Unremarkable. Vasculature: The visualized abdominal aorta is normal in size and caliber. Evaluation of abdominal and pelvic vessels is limited due to lack of intravenous contrast. Pelvic Organs: Unremarkable Musculoskeletal: No aggressive focal bony lesions, acute fractures or dislocation. Soft tissues: Unremarkable IMPRESSION: 1. The transverse left and sigmoid colons are all avoid of stool with mucosal thickening. This raises the question of colitis. Correlate with clinical setting. Radiation optimization: All CT scans at this facility use at least one of these dose optimization techniques: automated exposure control mA and/or kV adjustment per patient size (includes targeted exams where dose is matched to clinical indication) or iterative reconstruction. RING PHYSICIAN: SERJIO SOW MD PROCEDURE(s): CXRP - CHEST PORTABLE REASON: chest pain ORDER NUMBER(s): [id number], ACCESSION NUMBER(s): [id number] EXAMINATION: AP portable chest radiograph CLINICAL HISTORY: chest pain COMPARISON: XY CHEST PORTABLE on DOS: 08/08/24 FINDINGS: Apices partially obscured by . Lead wires overlie the thorax as well. No dominant consolidations in the visualized lung sandoval. No definite pleural effusion or pneumothorax. The cardiomediastinal silhouette appears within normal limits given technique. IMPRESSION: Limited study. No acute cardiopulmonary findings as visualized. Labs Test 08/18/24 21:15 08/18/24 20:10 Range/Units White Blood Count 7.7 4.4-10.8 10^3/uL Red Blood Count 5.56 4.5-5.90 10^6/uL Hemoglobin 15.5 13.5-17.5 g/dL Hematocrit 48.7 41.0-53.0 % Mean Corpuscular Volume 87.6 80.0-100.0 fL Mean Corpuscular Hemoglobin 27.9 L 28.0-32.0 pg Mean Corpuscular Hemoglobin Concent 31.9 L 32.0-36.0 g/dL Red Cell Distribution Width 19.0 H 11.8-14.3 % Platelet Count 297 140-450 10^3/uL Mean Platelet Volume 9.7 6.9-10.8 fL Neutrophils (%) (Auto) 84.3 H 37.0-80.0 % Lymphocytes (%) (Auto) 10.6 10.0-50.0 % Monocytes (%) (Auto) 4.8 0.0-12.0 % Eosinophils (%) (Auto) 0.0 0.0-7.0 % Basophils (%) (Auto) 0.3 0.0-2.0 % Neutrophils # (Auto) 6.5 1.6-8.6 10 ^3/uL Lymphocytes # (Auto) 0.8 0.4-5.4 10 ^3/uL Monocytes # (Auto) 0.4 0-1.3 10 ^3/uL Eosinophils # (Auto) 0 0-0.8 10 ^3/uL Basophils # (Auto) 0 0-0.2 10 ^3/uL Nucleated Red Blood Cells 0.1 % Prothrombin Time 11.5 9.3-11.8 sec Prothrombin Time INR 1.09 0.9-1.15 Activated Partial Thromboplast Time 25.4 24.5-34.5 SEC Sodium Level 141 136-145 mmol/L Potassium Level 4.8 3.5-5.1 mmol/L Chloride Level 105 98-107 mmol/L Carbon Dioxide Level 24 20-31 mmol/L Anion Gap 12 5-15 Blood Urea Nitrogen 9 9-23 mg/dL Creatinine 1.15 0.700-1.30 mg/dL Glomerular Filtration Rate Calc 86 >90 mL/min BUN/Creatinine Ratio 7.8 L 10.0-20.0 Serum Glucose 92 74-106 mg/dL Calcium Level 11.5 H 8.7-10.4 mg/dL Total Bilirubin 0.8 0.2-1.0 mg/dL Aspartate Amino Transferase (AST) 25 13-40 U/L Alanine Aminotransferase (ALT) 19 7-40 U/L Alkaline Phosphatase 93 46-116 U/L Troponin I High Sensitivity < 3 L </=54 ng/L Total Protein 9.4 H 5.7-8.2 g/dL Albumin 5.9 H 3.2-4.8 g/dL Lipase 36 12-53 U/L Assessment/Plan Assessment/Plan Assessment Acute abdominal pain ? Hematemesis Chronic pain syndrome Plan Admit the patient to [facility] to the hospitalist NPO GI consult Maintenance IV fluids Pain management Continue treatment per orders. Plan discussed with: Patient My Orders Orders - HARJINDER BURNETT Procedure Category Date Status Time Gastric Occult Blood LAB 08/18/24 Logged 23:47 * Gi [facility] Ichthyology Teacher CONS 08/18/24 Transmitted 23:47 Sodium Chloride 0.9% PHA 08/19/24 In Process 00:00 Admit ADMIT 08/18/24 Transmitted 23:47 Ondansetron Hcl PHA 08/19/24 In Process (Zofran) 00:00 Complete Blood Count LAB 08/19/24 Verified 04:00 Comprehensive LAB 08/19/24 Verified Metabolic Panel 04:00 Npo (Nothing By DIET 08/19/24 Transmitted Mouth) Diet Breakfast Condition: Stable MERCEDES 08/18/24 In Process 23:47 Bedrest With Bathroom MERCEDES 08/18/24 In Process Privileg 23:47 Morphine Sulfate PHA 08/19/24 In Process Injection 00:00 Pantoprazole PHA 08/19/24 In Process (Protonix) 10:00 Drug Screen LAB 08/18/24 Logged 23:53 Date of Service: Aug 18, 2024 Billing Provider: HARJINDER BURNETT Common Visit Codes: [id number] INP/OBS CARE (HIGH) HARJINDER BURNETT Aug 18, 2024 23:58
[2024-08-19] MEDS ORDERED: ONDANSETRON HCL 4 MG/2 ML VIAL IV PRN
[2024-08-19] MEDS: SODIUM CHLORIDE 0.9% 1,000 ML IV ONE (00:15)
[2024-08-19] MEDS ORDERED: PROMETHAZINE HCL 6.25 MG/5 ML ORAL SYRUP PO PRN (02:00)
[2024-08-19] MEDS: MORPHINE SULFATE INJ 2 MG/ml SYRG IV ONE (02:05)
[2024-08-19 03:33] VITALS: BP 111/83; PULSE 71; RESP 18; TEMP 98; O2SAT 100
[2024-08-19 05:00] VITALS: BP 113/78; PULSE 81; RESP 14; TEMP 98; O2SAT 98
[2024-08-19] MEDS: MORPHINE SULFATE INJ 2 MG/ml SYRG IV PRN (05:09)
[2024-08-19 06:48] LABS: Basophils # (auto) 0.1 10 ^3/uL (0-0.2); Basophils % (auto) 0.9 % (0.0-2.0); Eosinophils # (auto) 0 10 ^3/uL (0-0.8); Eosinophils % (auto) 0.2 % (0.0-7.0); Hematocrit 36.9 % (41.0-53.0); Hemoglobin 12.1 g/dL (13.5-17.5); Lymphocytes # (auto) 1.7 10 ^3/uL (0.4-5.4); Lymphocytes % (auto) 22.4 % (10.0-50.0); Mean Corpuscular Hemoglobin 28.6 pg (28.0-32.0); Mean Corpuscular Hgb Conc. 32.9 g/dL (32.0-36.0); Mean Corpuscular Volume 86.8 fL (80.0-100.0); Monocytes # (auto) 0.8 10 ^3/uL (0-1.3); Monocytes % (auto) 10.1 % (0.0-12.0); Neutrophils # (auto) 5.2 10 ^3/uL (1.6-8.6); Neutrophils % (auto) 66.4 % (37.0-80.0); Nucleated Red Blood Cells % 0.1 %; Platelet Count (auto) 249 10^3/uL (140-450); Red Blood Cells 4.25 10^6/uL (4.5-5.90); Red Cell Distribution Width 18.8 % (11.8-14.3); White Blood Cell 7.8 10^3/uL (4.4-10.8)
[2024-08-19 07:23] LABS: Alanine Aminotransferase 12 U/L (7-40); Albumin 4.2 g/dL (3.2-4.8); Alkaline Phosphatase 64 U/L (46-116); Anion Gap 11 (5-15); Aspartate Aminotransferase 14 U/L (13-40); BUN/Creatinine Ratio 10.7 (10.0-20.0); Bilirubin, Total 0.8 mg/dL (0.2-1.0); Blood Urea Nitrogen 11 mg/dL (9-23); Calcium 9.3 mg/dL (8.7-10.4); Carbon Dioxide 23 mmol/L (20-31); Chloride 105 mmol/L (98-107); Glucose 80 mg/dL (74-106); Potassium 3.7 mmol/L (3.5-5.1); Sodium 139 mmol/L (136-145); Total Protein 6.8 g/dL (5.7-8.2)
[2024-08-19 07:26] VITALS: BP 93/52; PULSE 89; RESP 16; TEMP 98.7; O2SAT 98
[2024-08-19 08:00] VITALS: PULSE 67; RESP 20; O2SAT 96
[2024-08-19 09:00] VITALS: BP 80/44; PULSE 67; RESP 20; TEMP 98.3; O2SAT 96
[2024-08-19] MEDS: PANTOPRAZOLE 40 MG/10 ML VIAL INJ IV SCH (10:40)
[2024-08-19 10:52] VITALS: BP 112/69; PULSE 85; RESP 16
[2024-08-19 12:29] LABS: Amphetamine Screen, Urine Neg (NEGATIVE); Barbiturate Scree,Urine Neg (NEGATIVE); Benzodiazephine Screen, Urine Pos (NEGATIVE); Cannabinoid Screen, Urine Neg (NEGATIVE); Cocaine Screen, Urine Neg (NEGATIVE); Opiate Scree,Urine Pos (NEGATIVE); Phencyclidine Screen, Urine Neg (NEGATIVE)
--- NOTE | 2024-08-19 15:08 | DVHDS2 ---
Discharge Summary Date of Admission Aug 18, 2024 at 23:47 Date of Discharge: Aug 19, 2024 Admitting Diagnosis Abdominal pain with hematemesis and colitis Labs/Diagnostic Data: Laboratory Results Test 08/19/24 11:37 08/19/24 06:06 08/18/24 21:15 08/18/24 20:10 Urine Opiates Screen Pos (NEGATIVE) Urine Fentanyl Screen Pos (NEGATIVE) Urine Barbiturates Screen Neg (NEGATIVE) Urine Phencyclidine Screen Neg (NEGATIVE) Urine Amphetamines Screen Neg (NEGATIVE) Urine Benzodiazepines Screen Pos (NEGATIVE) Urine Cocaine Screen Neg (NEGATIVE) Urine Cannabinoids Screen Neg (NEGATIVE) White Blood Count 7.8 10^3/uL (4.4-10.8) Red Blood Count 4.25 10^6/uL (4.5-5.90) Hemoglobin 12.1 g/dL (13.5-17.5) Hematocrit 36.9 % (41.0-53.0) Mean Corpuscular Volume 86.8 fL (80.0-100.0) Mean Corpuscular Hemoglobin 28.6 pg (28.0-32.0) Mean Corpuscular Hemoglobin Concent 32.9 g/dL (32.0-36.0) Red Cell Distribution Width 18.8 % (11.8-14.3) Platelet Count 249 10^3/uL (140-450) Mean Platelet Volume 9.7 fL (6.9-10.8) Neutrophils (%) (Auto) 66.4 % (37.0-80.0) Lymphocytes (%) (Auto) 22.4 % (10.0-50.0) Monocytes (%) (Auto) 10.1 % (0.0-12.0) Eosinophils (%) (Auto) 0.2 % (0.0-7.0) Basophils (%) (Auto) 0.9 % (0.0-2.0) Neutrophils # (Auto) 5.2 10 ^3/uL (1.6-8.6) Lymphocytes # (Auto) 1.7 10 ^3/uL (0.4-5.4) Monocytes # (Auto) 0.8 10 ^3/uL (0-1.3) Eosinophils # (Auto) 0 10 ^3/uL (0-0.8) Basophils # (Auto) 0.1 10 ^3/uL (0-0.2) Nucleated Red Blood Cells 0.1 % Sodium Level 139 mmol/L (136-145) Potassium Level 3.7 mmol/L (3.5-5.1) Chloride Level 105 mmol/L (98-107) Carbon Dioxide Level 23 mmol/L (20-31) Anion Gap 11 (5-15) Blood Urea Nitrogen 11 mg/dL (9-23) Creatinine 1.03 mg/dL (0.700-1.30) Glomerular Filtration Rate Calc 98 mL/min (>90) BUN/Creatinine Ratio 10.7 (10.0-20.0) Serum Glucose 80 mg/dL (74-106) Calcium Level 9.3 mg/dL (8.7-10.4) Total Bilirubin 0.8 mg/dL (0.2-1.0) Aspartate Amino Transferase (AST) 14 U/L (13-40) Alanine Aminotransferase (ALT) 12 U/L (7-40) Alkaline Phosphatase 64 U/L (46-116) Total Protein 6.8 g/dL (5.7-8.2) Albumin 4.2 g/dL (3.2-4.8) Prothrombin Time 11.5 sec (9.3-11.8) Prothrombin Time INR 1.09 (0.9-1.15) Activated Partial Thromboplast Time 25.4 SEC (24.5-34.5) Troponin I High Sensitivity 3 ng/L (</=54) Lipase 36 U/L (12-53) Other Laboratory Tests 08/19/24 06:06 Brief Hx & Hospital Course: 33-year-old gentleman admitted to the hospital from the emergency room because abdominal pain. He was diagnosed with colitis and hematemesis. Patient does have history of neck and throat cancer with brain cancer and brain surgery. Apparently patient left AMA. Condition at Discharge: Undetermined (Left AMA) Final Diagnosis/Problems List Colitis Hematemesis History of neck and throat and brain cancer Medical noncompliance Discharge Disposition: AMA Discharge Instruct/Medications Diet: See Comment (Left AMA) Diet comment: AMA Activity: AMA Activity comment: AMA Follow Up/Referral: AMA Medications: AMA Discharge Statement: "Patient was advised to return to the ER or call 911 if any headaches, dizziness, shortness of breath, chest pain, abdominal pain, bleeding, fevers, or worsening of medical condition. Patient was counseled about treatment plan, medications, possible side effects, patientverbalized understanding. All questions were answered to the best of my ability. This discharge took greater then 30 minutes in planning, reviewing documentation, counseling the patient, and discussing with other team members." ASSESSMENT ASSESSMENT Assessment Date of Service: Aug 19, 2024 Billing Provider: CAMERON NG MD Common Visit Codes: 15544-NNA/OBS DISCH DAY <30MIN CAMERON NG MD Aug 19, 2024 15:08
--- NOTE | 2024-08-19 19:12 | ECG ---
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
== END 2024-08-19 11:41 | disposition left against medical advice (07) | DRG 392 ==
LOC: ER 19:22 → EDBD 19:22 → OVERFLOW 23:47 → CENTRAL 08-19 02:13
PROVIDERS: ADMIT Nurse Practitioner; ATTEND Nurse Practitioner
DX: K52.9 Noninfective gastroenteritis and colitis, unspecified (principal); G89.4 Chronic pain syndrome; Z53.29 Procedure and treatment not carried out because of patient's decision for other reasons; Z85.819 Personal history of malignant neoplasm of unspecified site of lip, oral cavity, and pharynx; F17.210 Nicotine dependence, cigarettes, uncomplicated; C14.0 Malignant neoplasm of pharynx, unspecified; E86.0 Dehydration; Z88.6 Allergy status to analgesic agent; Z91.041 Radiographic dye allergy status; Z88.8 Allergy status to other drugs, medicaments and biological substances; Z79.899 Other long term (current) drug therapy; Z79.2 Long term (current) use of antibiotics; Z79.891 Long term (current) use of opiate analgesic; Z85.841 Personal history of malignant neoplasm of brain; Z91.199 Patient's noncompliance with other medical treatment and regimen due to unspecified reason
CPT/HCPCS: 36415; 71045; 74176; 80053; 80307; 83690; 84484; 85025; 85610; 85730; 86850; 86900; 86901; 87081; 93005; 96361; 96365; 96375; G0378; J2405; J2470

== ENCOUNTER 2024-09-10 20:46 | Emergency (ER) | payer OTHER, MEDICAID ==
[~2024-09-10] VITALS: Ht 175.3 cm; Wt 75.0 kg
[~2024-09-10 20:46] MED LIST changes: -CIPR-173 PO; -HYDR5CRE3 PR; -PANT40TA2 PO
--- NOTE | 2024-09-10 21:09 | ED.PDOC ---
HPI Comments 34 y/o M presents with c/o epigastric abdominal pain, that radiates to his sternal chest area, with associated nausea and vomiting for 2 days, today. Denies any palpitations, shortness of breath, blood in vomitus, diarrhea, constipation, urinary symptoms, fever, chills, or other associated symptoms. Chief Complaint: Chest Pain Time Seen by MD: 20:50 Primary Care Provider: SOPHIA Calderon Notes: Nurses Notes, Medications, Allergies Allergies: Coded Allergies: Acetaminophen (Verified Allergy, Unknown, 09/02/21) Diphenhydramine (Verified Allergy, Unknown, 09/02/21) Metoclopramide (Verified Allergy, Unknown, 07/16/24) Prochlorperazine (Verified Allergy, Unknown, 07/16/24) Uncoded Allergies: BLEACH (Allergy, Unknown, 09/02/21) MRI CONTRAST (Allergy, Unknown, 09/02/21) Home Meds Active Scripts Famotidine (PEPCID TABLET) 20 Mg Tb, 1 TAB PO BID for 60 Days, #120 TAB 5 Refills Prov:SERJIO SOW MD 09/10/24 Ondansetron HCl (Ondansetron Hydrochloride) 8 Mg Tab, 8 MG PO Q6HP PRN, #60 TAB Prov:SERJIO SOW MD 09/10/24 Reported Medications Promethazine HCl (Promethazine HCl) 6.25 Mg/5 Ml Syp, 20 ML PO QID PRN for NAUSEA / VOMITING 07/16/24 Pregabalin (Pregabalin) 75 Mg Cap, 1 CAP PO BID 07/16/24 Oxycodone HCl (Oxycodone Hydrochloride) 30 Mg Tab, 1 TAB PO Q4HPRN PRN for PAIN SCALE 1 THRU 6 11/10/23 Alprazolam (Alprazolam) 2 Mg Tab, 1 TAB PO TID PRN for ANXIETY 11/10/23 Pantoprazole Sodium Sesquihydr (Pantoprazole Sodium) 40 Mg Tab, 1 TAB PO BID 11/10/23 Information Source: Patient Mode of Arrival: Ambulatory Severity: Moderate Past Medical History PAST MEDICAL HISTORY: Cancer (neck, throat, and brain cancer ) Past Medical History (Other): colitis, medical noncompliance Surgical History: Denies all surgeries Family History Family History: Reviewed,noncontributory to illness Social History Smoker: Cigarettes Alcohol: Denies ETOH Use Drugs: Denies Drug Use Lives In: Home All Other Systems: Reviewed and Negative (as per HPI) Physical Exam General Appearance: Normal, Other (uncomfortable appearing ) HEENT: Normal ENT Inspection, Pharynx Normal, TMs Normal Neck: Full Range of Motion, Non-Tender, Normal, Normal Inspection Respiratory: Chest Non-Tender, Lungs Clear, No Accessory Muscle Use, No Respiratory Distress, Normal Breath Sounds Cardiovascular: No Edema, No JVD, No Murmur, No Gallop, Normal Peripheral Pulses, Regular Rate/Rhythm Breast Exam: Deferred Gastrointestinal: No Organomegaly, Non Tender, No Pulsatile Mass, Normal Bowel Sounds, Soft Genitalia: Deferred Pelvic: Deferred Rectal: Deferred Extremities: No calf tenderness, Normal capillary refill, Normal inspection, Normal range of motion, Non-tender, No pedal edema Musculoskeletal : Apperance: Normal Neurologic: Alert, 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 Was a procedure done?: No CP Differential Dx Differential Diagnosis: N/A Differential Diagnosis: N/A Differential Diagnosis: Angina, Chest Wall Pain, Cholelithiasis, Costochondritis, Esophageal reflux/spasm, Gastritis, Myocardial Infarction, Pericarditis, Pneumonia, Pulmonary Embolus X-Ray, Labs, Meds, VS Vital Signs Date Time Temp Pulse Resp B/P (MAP) Pulse Ox O2 Delivery O2 Flow Rate FiO2 09/10/24 23:12 80 18 96 Room Air* 0 21 09/10/24 22:54 80 18 129/88 09/10/24 22:52 98.9 80 18 129/88 (102) 96 98.9 09/10/24 20:53 85 09/10/24 20:50 98.4 60 18 128/90 (103) 98 98.4 Lab Test 09/10/24 22:38 09/10/24 21:03 Range/Units Troponin I High Sensitivity < 3 L < 3 L </=54 ng/L White Blood Count 5.0 4.4-10.8 10^3/uL Red Blood Count 5.42 4.5-5.90 10^6/uL Hemoglobin 15.1 13.5-17.5 g/dL Hematocrit 46.3 41.0-53.0 % Mean Corpuscular Volume 85.4 80.0-100.0 fL Mean Corpuscular Hemoglobin 27.8 L 28.0-32.0 pg Mean Corpuscular Hemoglobin Concent 32.6 32.0-36.0 g/dL Red Cell Distribution Width 19.6 H 11.8-14.3 % Platelet Count 270 140-450 10^3/uL Mean Platelet Volume 9.6 6.9-10.8 fL Neutrophils (%) (Auto) 47.2 37.0-80.0 % Lymphocytes (%) (Auto) 41.5 10.0-50.0 % Monocytes (%) (Auto) 9.5 0.0-12.0 % Eosinophils (%) (Auto) 0.9 0.0-7.0 % Basophils (%) (Auto) 0.9 0.0-2.0 % Neutrophils # (Auto) 2.4 1.6-8.6 10 ^3/uL Lymphocytes # (Auto) 2.1 0.4-5.4 10 ^3/uL Monocytes # (Auto) 0.5 0-1.3 10 ^3/uL Eosinophils # (Auto) 0 0-0.8 10 ^3/uL Basophils # (Auto) 0 0-0.2 10 ^3/uL Nucleated Red Blood Cells 0.3 % Sodium Level 138 136-145 mmol/L Potassium Level 4.2 3.5-5.1 mmol/L Chloride Level 103 98-107 mmol/L Carbon Dioxide Level 26 20-31 mmol/L Anion Gap 9 5-15 Blood Urea Nitrogen 11 9-23 mg/dL Creatinine 1.12 0.700-1.30 mg/dL Glomerular Filtration Rate Calc 88 >90 mL/min BUN/Creatinine Ratio 9.8 L 10.0-20.0 Serum Glucose 92 74-106 mg/dL Calcium Level 11.0 H 8.7-10.4 mg/dL Total Bilirubin 0.6 0.2-1.0 mg/dL Aspartate Amino Transferase (AST) 20 13-40 U/L Alanine Aminotransferase (ALT) 18 7-40 U/L Alkaline Phosphatase 95 46-116 U/L Total Protein 8.6 H 5.7-8.2 g/dL Albumin 5.3 H 3.2-4.8 g/dL Lipase 44 12-53 U/L Current Medications Medications (Trade) Dose Ordered Sig/[place] Route Start Time Stop Time Status Last Admin Morphine Sulfate 4 mg ONCE ONCE IV 09/10/24 21:00 09/10/24 21:02 DC 09/10/24 22:54 Ondansetron HCl (Zofran) 4 mg ONCE ONCE IV 09/10/24 21:00 09/10/24 21:02 DC 09/10/24 22:53 [place] [address] Ph: [phone] DIAGNOSTIC IMAGING Diagnostic Imaging Report : [id number] Signed PATIENT: NADEEN HARRISON ACCT: [id number] UNIT: [id number] : 1990 LOC: ER ROOM / BED: / AGE / SEX: 34 / M ADM STATUS: REG ER SERVICE 02 ORDERING PHYSICIAN: SERJIO SOW MD PROCEDURE(s): CXR1 - CHEST XRAY 1 VIEW REASON: chest pain ORDER NUMBER(s): [id number], ACCESSION NUMBER(s): [id number] CHEST RADIOGRAPH Indication: chest pain Technique: Single frontal view of the chest was obtained Comparison: XY CHEST PORTABLE on DOS: 08/18/24, XY CHEST PORTABLE on DOS: 08/08/24, XY CHEST XRAY 1 VIEW on DOS: 07/16/24 FINDINGS: Lines and Tubes: None Lungs: No focal consolidation. Pleura: No effusion. No pneumothorax. Cardiomediastinal contours: Unremarkable Bones: No acute osseous abnormality. IMPRESSION: 1. No acute cardiopulmonary disease. HS:Y ATED BY: BRENDAN MONTENEGRO Jr., DO DICTATED DATE/TIME: 09/10/242126 SIGNED BY: BRENDAN MONTENEGRO Jr., DO SIGNED DATE/TIME: 09/10/242126 CC: Time of 1ST Reevaluation: 21:20 Reevaluation 1ST: Unchanged Patient Education/Counseling: Diagnosis, Treatment Family Education/Counseling: No Family Present Departure 1 Departure Time of Disposition: 23:34 Impression: Primary Impression: Atypical chest pain Additional Impression: Nausea and vomiting Disposition: 01 HOME / SELF CARE / HOMELESS Condition: Stable e-Prescriptions Famotidine (PEPCID TABLET) 20 Mg Tb 1 TAB PO BID for 60 Days, #120 TAB 5 Refills Prov: SERJIO SOW MD 09/10/24 Ondansetron HCl (Ondansetron Hydrochloride) 8 Mg Tab 8 MG PO Q6HP PRN, #60 TAB Prov: SERJIO SOW MD 09/10/24 Discharged With: Self Critical Care Note Critical Care Time?: No Stability Stability form required: No Heart Score Heart Score: Heart Score Response (Comments) Value History Slightly Suspicious 0 EKG Normal 0 Age <45 0 Risk Factors 1 or 2 risk factors 1 Troponin Normal limit 0 Total 1 I personally scribed for SERJIO SOW MD ([email or web address]) on 09/10/24 at 21:08. E lectronically submitted by Ozzy Vasquez ([email or web address]). I personally scribed for SERJIO SOW MD ([email or web address]) on 09/10/24 at 23:04. Electronically submitted by Ozzy Vasquez [email or web address]). SERJIO SOW MD Sep 10, 2024 21:08
--- NOTE | 2024-09-10 21:30 | DVH ---
CHEST RADIOGRAPH Indication: chest pain Technique: Single frontal view of the chest was obtained Comparison: XY CHEST PORTABLE on DOS: 08/18/24, XY CHEST PORTABLE on DOS: 08/08/24, XY CHEST XRAY 1 VIEW on DOS: 07/16/24 FINDINGS: Lines and Tubes: None Lungs: No focal consolidation. Pleura: No effusion. No pneumothorax. Cardiomediastinal contours: Unremarkable Bones: No acute osseous abnormality. IMPRESSION: 1. No acute cardiopulmonary disease. HS:Y
[2024-09-10 21:35] LABS: Basophils # (auto) 0 10 ^3/uL (0-0.2); Basophils % (auto) 0.9 % (0.0-2.0); Eosinophils # (auto) 0 10 ^3/uL (0-0.8); Eosinophils % (auto) 0.9 % (0.0-7.0); Hematocrit 46.3 % (41.0-53.0); Hemoglobin 15.1 g/dL (13.5-17.5); Lymphocytes # (auto) 2.1 10 ^3/uL (0.4-5.4); Lymphocytes % (auto) 41.5 % (10.0-50.0); Mean Corpuscular Hemoglobin 27.8 pg (28.0-32.0); Mean Corpuscular Hgb Conc. 32.6 g/dL (32.0-36.0); Mean Corpuscular Volume 85.4 fL (80.0-100.0); Monocytes # (auto) 0.5 10 ^3/uL (0-1.3); Monocytes % (auto) 9.5 % (0.0-12.0); Neutrophils # (auto) 2.4 10 ^3/uL (1.6-8.6); Neutrophils % (auto) 47.2 % (37.0-80.0); Nucleated Red Blood Cells % 0.3 %; Platelet Count (auto) 270 10^3/uL (140-450); Red Blood Cells 5.42 10^6/uL (4.5-5.90); Red Cell Distribution Width 19.6 % (11.8-14.3)
[2024-09-10 21:43] LABS: Alanine Aminotransferase 18 U/L (7-40); Alkaline Phosphatase 95 U/L (46-116); Anion Gap 9 (5-15); Aspartate Aminotransferase 20 U/L (13-40); BUN/Creatinine Ratio 9.8 (10.0-20.0); Blood Urea Nitrogen 11 mg/dL (9-23); Carbon Dioxide 26 mmol/L (20-31); Chloride 103 mmol/L (98-107); Glucose 92 mg/dL (74-106); Potassium 4.2 mmol/L (3.5-5.1); Sodium 138 mmol/L (136-145)
[2024-09-10 21:44] LABS: Albumin 5.3 g/dL (3.2-4.8); Bilirubin, Total 0.6 mg/dL (0.2-1.0); Total Protein 8.6 g/dL (5.7-8.2)
[2024-09-10 22:52] VITALS: TEMP 98.9
[2024-09-10] MEDS: ONDANSETRON HCL 4 MG/2 ML VIAL IV ONE (22:53)
[2024-09-10] MEDS: MORPHINE SULFATE 4 MG/ML SYR/VIAL IV ONE (22:54)
[2024-09-10 23:12] VITALS: PULSE 80; RESP 18; O2SAT 96
[2024-09-10 23:24] VITALS: BP 128/90; PULSE 60; RESP 16
[2024-09-10] MEDS ORDERED: ONDA-180 PO (23:32)
[2024-09-10] MEDS ORDERED: FAMO20TA10 PO (23:32)
--- NOTE | 2024-09-11 05:43 | ECG ---
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
== END 2024-09-11 00:16 | disposition home or self-care (01) ==
LOC: ER 20:56
DX: R07.89 Other chest pain (principal); R10.13 Epigastric pain; R11.2 Nausea with vomiting, unspecified; F17.210 Nicotine dependence, cigarettes, uncomplicated; Z79.899 Other long term (current) drug therapy; Z88.8 Allergy status to other drugs, medicaments and biological substances
CPT/HCPCS: 36415; 71045; 80053; 83690; 84484; 85025; 93005; 96374; 96375; 99285; J2270; J2405

== ENCOUNTER 2024-10-05 16:45 | Inpatient (IN) | payer OTHER, MEDICAID ==
[~2024-10-05] VITALS: Ht 175.3 cm; Wt 74.7 kg
[~2024-10-05 16:45] MED LIST changes: +FAMO20TA10 PO; +ONDA-180 PO
[2024-10-05 17:30] VITALS: PULSE 68; RESP 18; O2SAT 96
[2024-10-05] MEDS: PANTOPRAZOLE 40 MG/10 ML VIAL INJ IV ONE ×2 (17:32→23:18)
[2024-10-05] MEDS: SODIUM CHLORIDE 0.9% 1,000 ML IV ONE (17:32)
[2024-10-05] MEDS: ONDANSETRON HCL 4 MG/2 ML VIAL IV ONE (17:33)
--- NOTE | 2024-10-05 17:47 | DVH ---
EXAM: CT CT AB PEL WO CON-NO ORAL OR IV INDICATION: n/v blood TECHNIQUE: Volumetric multidetector CT images of the abdomen and pelvis were obtained without contras t. All CT scans at this facility use dose modulation, iterative reconstruction, and/or weight based d osing when appropriate to reduce radiation dose to as low as reasonably achievable. COMPARISON: CT CT AB PEL WO CON-NO ORAL OR IV on DOS: 08/18/24 FINDINGS: [LOWER CHEST]: Trace 2 mm scattered micro nodules of the periphery of bilateral lower lobes. The card iac size is normal without pericardial effusion. [LIVER]: Normal hepatic size without suspicious focal lesion. [GALLBLADDER AND BILIARY TREE]: No cholelithiasis. [SPLEEN]: Unremarkable. [PANCREAS]: Unremarkable. [ADRENAL GLANDS]: Unremarkable [KIDNEYS]: No hydronephrosis. No nephroureterolithiasis. [BLADDER]: Unremarkable for the degree distention. [REPRODUCTIVE ORGANS]: Unremarkable. [BOWEL/MESENTERY]: Stomach is decompressed however question slight gastric wall thickening consider c orrelation with physical exam limited evaluation without intravenous contrast or significant distenti on. No CT evidence of bowel obstruction. Normal appendix. [ASCITES]: Absent [LYMPHADENOPATHY]: No pathologically enlarged lymph nodes by CT size criteria [VASCULATURE]: No aneurysmal dilatation. [ABDOMINAL WALL]: Unremarkable. [MUSCULOSKELETAL]: No acute fracture or aggressive focal osseous lesion. IMPRESSION: 1. Stomach is decompressed limiting evaluation however question minimal gastric wall thickening. Ivet elate with clinical exam to exclude an underlying gastritis. 2. No intraperitoneal free air or ascites.
--- NOTE | 2024-10-05 17:50 | DVH ---
EXAM: CT HEAD WITHOUT CONTRAST HISTORY: n/v brain tumor COMPARISON: CT HEAD WITHOUT CONTRAST on DOS: 05/19/24, CT HEAD WITHOUT CONTRAST on DOS: 11/10/23, HEAD W ITHOUT CONTRAST on DOS: 01/26/22 TECHNIQUE: Axial images were obtained and reformatted in coronal and sagittal planes. All CT scans at this medical facility are performed using dose modulation techniques as appropriate t o a performed exam including the following: Automated exposure control was utilized; adjustment of th e MA and/or KV according to patient size; and use of iterative reconstruction technique. CT Dose: CTDI volume is 61.93 mGy. Dose-length product is 992.65 mGy*cm FINDINGS: Supratentorial Region: No evidence for large acute territorial ischemia. No intracranial hemorrhage is noted. Posterior Fossa: No acute abnormality. Brainstem: Unremarkable. Sellar/Suprasellar Region: Unremarkable. Ventricles, Cisterns, Sulci: Age-appropriate. Orbits: Unremarkable. Paranasal Sinuses: Unremarkable. Mastoid Air Cells: The left mastoid is resected. There is opacification of the left internal audito ry canal with nonvisualization of the ossicles. The right mastoid air cells are clear. Vasculature: Unremarkable. Bones/Soft Tissues: No acute abnormality. Left temporal lobe craniotomy with numerous metallic densi ties noted in the surrounding soft tissues with the largest measuring 1 cm. Other: None. IMPRESSION: 1. No acute intracranial process. 2. Postoperative changes of left mastoid and temporal bone with numerous adjacent metallic densities noted.
--- NOTE | 2024-10-05 18:06 | ED.PDOC ---
GI ASSESSMENT HPI Comments HPI: 34y M who presents to the ED via EMS for chief complaint of nausea and vomiting. - pt states he has been having nausea and vomiting with blood in vomit since last night PM - pt also states he went to get up today to use restroom and states he had a syncopal episode. No fall or trauma. He sort of sat back into the couch again. - pt states he does not know how long he was unconscious but states he called EMS after regaing consciousnes. Patient estimates it to be 2-3 minutes. - EMS states upon arrival, pt has noted stable vitals but noted pt had vomit in blood and pt was given zofran - pt has noted history of cancer in brain, neck and throat and states he has upcoming surgery in November for tumor resection and denies any current chemo use . Patient states having esophageal hernia - pt otherwise denies any other symptoms at this time and is otherwise alert and oriented x 4 in the ED. Past Medical history: brain, neck and throat cancer Past Surgical history: denies Medications: Zoloft, clonazepam Allergies: acetaminophen, bleach, diphenhydramine, MRI contrast, Social History: denies ETOH, denies tobacco use, denies drug use HPI: Poor Historian. REVIEW OF SYSTEMS: CONSTITUTIONAL: Denies acute: fever, diaphoresis, chills, HEAD: Denies acute: headache, photophobia Eyes: Denies acute: Double vision, vision loss, eye pain, eye discharge. EARS: Denies acute: tinnitus, hearing loss, ear discharge, ear pain, THROAT: Denies acute: sore throat, swelling, difficulty swallowing , pain with swallowing, change in voice. NECK: Denies acute: neck pain, neck swelling, stiff neck. HEART: Denies acute : chest pain, palpitations, LUNGS: Denies acute: SOB, wheezing, cough, hemoptysis ABDOMEN: Denies acute: diarrhea, melena , hematochezia SKIN: Denies acute: rash, redness, lesions, itchiness. EXTREMITIES: Denies acute: calf pain, numbness, tingling, weakness, denies pain in extremity. Denies acute: Low back pain. Neuro: Denies acute: focal neurological deficit, motor or sensory focal neurological deficit, tremors, seizure like activity, confusion, dizziness, change in mental status, loss of bowel or bladder function, cauda equina like symptoms. : Denies acute: dysuria, hematuria, flank pain, increase in urinary frequency. PSYCH: Denies acute: hallucination, suicidal ideation, homicidal ideation. PHYSICAL EXAM: General: ---[id number]-----acute distress, awake and alert. Head: normocephalic, atraumatic. Neck: supple, trachea is midline, no swelling. Throat: Normal phonation. Eyes:, no erythema, no purulent discharge, no proptosis, no icterus. Heart: regular rate, regular rhythm, no significant murmur appreciated. Lungs: no apparent respiratory distress, Able to speak in full sentences. No wheezing, no rhonchi, no crackles. No stridors Clear to auscultation bilaterally. Abdomen: Nonspecific generalized tender to palpation, non distended, soft, no guarding, no rebound, + bowel sounds. Neuro: Awake, Alert, oriented to name, self, situation, follows commands GCS=15. Speech is normal. Skin: no petechia, no purpura, no cyanosis, non-pale, not jaundice. Lower extremities: --no - Pitting edema no deformity, no focal swelling, no calf TTP. Makes eye contact. moves all four extremities. Face: no apparent facial droop. ED COURSE: Chief Complaint: Nausea/Vomiting Time Seen by MD: 16:52 Primary Care Provider: SOPHIA Calderon Notes: Medications, Allergies Allergies: Coded Allergies: Acetaminophen (Verified Allergy, Unknown, 09/02/21) Diphenhydramine (Verified Allergy, Unknown, 09/02/21) Metoclopramide (Verified Allergy, Unknown, 07/16/24) Prochlorperazine (Verified Allergy, Unknown, 07/16/24) Uncoded Allergies: BLEACH (Allergy, Unknown, 09/02/21) MRI CONTRAST (Allergy, Unknown, 09/02/21) Home Meds Active Scripts Famotidine (PEPCID TABLET) 20 Mg Tb, 1 TAB PO BID for 60 Days, #120 TAB 5 Refills Prov:SERJIO SOW MD 09/10/24 Ondansetron HCl (Ondansetron Hydrochloride) 8 Mg Tab, 8 MG PO Q6HP PRN, #60 TAB Prov:SERJIO SOW MD 09/10/24 Reported Medications Promethazine HCl (Promethazine HCl) 6.25 Mg/5 Ml Syp, 20 ML PO QID PRN for NAUSEA / VOMITING 07/16/24 Pregabalin (Pregabalin) 75 Mg Cap, 1 CAP PO BID 07/16/24 Oxycodone HCl (Oxycodone Hydrochloride) 30 Mg Tab, 1 TAB PO Q4HPRN PRN for PAIN SCALE 1 THRU 6 11/10/23 Alprazolam (Alprazolam) 2 Mg Tab, 1 TAB PO TID PRN for ANXIETY 11/10/23 Pantoprazole Sodium Sesquihydr (Pantoprazole Sodium) 40 Mg Tab, 1 TAB PO BID 11/10/23 Information Source: Patient Mode of Arrival: EMS Past Medical History PAST MEDICAL HISTORY: Cancer Surgical History: Denies all surgeries Family History Family History: Reviewed,noncontributory to illness Social History Smoker: Cigarettes Alcohol: Denies ETOH Use Drugs: Denies Drug Use Lives In: Home Was a procedure done? Was a procedure done?: No GI differential Dx Differential Diagnosis: Other (DDX include but not limited to diverticulitis, colitis, gastroenteritis, acute abdomen, SBO, enteritis, constipation, volvulus, appendicitis, Gallbladder disease, choledocolithiasis, ascending cholangitis, pancreatitis, intraAbdominal mass/neoplasm, hepatitis, UTI, pylonephritis, kidney stone, aneurysm, dissection, Inflammatory bowel disease, gastroparesis, ischemic bowel.) X-Ray, Labs, Meds, VS Vital Signs Date Time Temp Pulse Resp B/P (MAP) Pulse Ox O2 Delivery O2 Flow Rate FiO2 10/05/24 20:00 56 10/05/24 19:45 97.9 61 19 114/84 (94) 98 97.9 10/05/24 19:45 62 18 98 Room Air* 0 21 10/05/24 18:14 116/82 10/05/24 17:30 97.4 68 18 108/79 (89) 96 97.4 10/05/24 17:30 68 18 96 Room Air* 0 21 10/05/24 17:19 87 10/05/24 17:07 98.4 75 16 133/95 (108) 97 98.4 Lab Test 10/05/24 17:40 Range/Units White Blood Count 4.5 4.4-10.8 10^3/uL Red Blood Count 5.14 4.5-5.90 10^6/uL Hemoglobin 14.3 13.5-17.5 g/dL Hematocrit 43.9 41.0-53.0 % Mean Corpuscular Volume 85.6 80.0-100.0 fL Mean Corpuscular Hemoglobin 27.9 L 28.0-32.0 pg Mean Corpuscular Hemoglobin Concent 32.6 32.0-36.0 g/dL Red Cell Distribution Width 18.0 H 11.8-14.3 % Platelet Count 242 140-450 10^3/uL Mean Platelet Volume 9.3 6.9-10.8 fL Neutrophils (%) (Auto) 74.0 37.0-80.0 % Lymphocytes (%) (Auto) 17.3 10.0-50.0 % Monocytes (%) (Auto) 7.4 0.0-12.0 % Eosinophils (%) (Auto) 0.4 0.0-7.0 % Basophils (%) (Auto) 0.9 0.0-2.0 % Neutrophils # (Auto) 3.3 1.6-8.6 10 ^3/uL Lymphocytes # (Auto) 0.8 0.4-5.4 10 ^3/uL Monocytes # (Auto) 0.3 0-1.3 10 ^3/uL Eosinophils # (Auto) 0 0-0.8 10 ^3/uL Basophils # (Auto) 0 0-0.2 10 ^3/uL Nucleated Red Blood Cells 0.2 % Reticulocyte Count (auto) 0.49 L 0.5-1.5 % Sodium Level 141 136-145 mmol/L Potassium Level 4.2 3.5-5.1 mmol/L Chloride Level 106 98-107 mmol/L Carbon Dioxide Level 26 20-31 mmol/L Anion Gap 9 5-15 Blood Urea Nitrogen 10 9-23 mg/dL Creatinine 1.01 0.700-1.30 mg/dL Glomerular Filtration Rate Calc 99 >90 mL/min BUN/Creatinine Ratio 9.9 L 10.0-20.0 Serum Glucose 79 74-106 mg/dL Lactic Acid Level 1.5 0.4-2.0 mmol/L Calcium Level 9.8 8.7-10.4 mg/dL Magnesium Level 2.0 1.6-2.6 mg/dL Total Bilirubin 0.3 0.2-1.0 mg/dL Aspartate Amino Transferase (AST) 13 13-40 U/L Alanine Aminotransferase (ALT) 12 7-40 U/L Alkaline Phosphatase 92 46-116 U/L Total Protein 7.7 5.7-8.2 g/dL Albumin 4.8 3.2-4.8 g/dL Lipase 40 12-53 U/L Vitamin D 25-Hydroxy 17.6 L 30.0-100 ng/mL Plasma/Serum Blood Alcohol 3.9 <10 mg/dL [place] [address] Ph: [phone] DIAGNOSTIC IMAGING Diagnostic Imaging Report : [id number] Signed PATIENT: NADEEN HARRISON IIIACCT: [id number] UNIT: [id number] : 1990 LOC: ER ROOM / BED: / AGE / SEX: 34 / M ADM STATUS: REG ER SERVICE 1706 ORDERING PHYSICIAN: ROLANDA ABEL DO PROCEDURE(s): HWOCT - HEAD WITHOUT CONTRAST REASON: n/v brain tumor ORDER NUMBER(s): [id number], ACCESSION NUMBER(s): [id number] EXAM: CT HEAD WITHOUT CONTRAST HISTORY: n/v brain tumor COMPARISON: CT HEAD WITHOUT CONTRAST on DOS: 05/19/24, CT HEAD WITHOUT CONTRAST on DOS: 11/10/23, HEAD WITHOUT CONTRAST on DOS: 01/26/22 TECHNIQUE: Axial images were obtained and reformatted in coronal and sagittal planes. All CT scans at this medical facility are performed using dose modulation techniques as appropriate to a performed exam including the following: Automated exposure control was utilized; adjustment of the MA and/or KV according to patient size; and use of iterative reconstruction technique. CT Dose: CTDI volume is 61.93 mGy. Dose-length product is 992.65 mGy*cm FINDINGS: Supratentorial Region: No evidence for large acute territorial ischemia. No intracranial hemorrhage is noted. Posterior Fossa: No acute abnormality. Brainstem: Unremarkable. Sellar/Suprasellar Region: Unremarkable. Ventricles, Cisterns, Sulci: Age-appropriate. Orbits: Unremarkable. Paranasal Sinuses: Unremarkable. Mastoid Air Cells: The left mastoid is resected. There is opacification of the left internal auditory canal with nonvisualization of the ossicles. The right mastoid air cells are clear. Vasculature: Unremarkable. Bones/Soft Tissues: No acute abnormality. Left temporal lobe craniotomy with numerous metallic densities noted in the surrounding soft tissues with the largest measuring 1 cm. Other: None. IMPRESSION: 1. No acute intracranial process. 2. Postoperative changes of left mastoid and temporal bone with numerous adjacent metallic densities noted. ATED BY: LUZ LANGLEY MD DICTATED DATE/TIME: 10/05/241747 SIGNED BY: LUZ LANGLEY MD SIGNED DATE/TIME: 10/05/241747 CC: [place] [id number] Ph: [phone] DIAGNOSTIC IMAGING Diagnostic Imaging Report : [id number] Signed PATIENT: NADEEN HARRISON IIIACCT: [id number] UNIT: [id number] : 1990 LOC: ER ROOM / BED: / AGE / SEX: 34 / M ADM STATUS: REG ER SERVICE 05 ORDERING PHYSICIAN: ROLANDA ABEL DO PROCEDURE(s): ABPL - CT AB PEL WO CON-NO ORAL OR IV REASON: n/v blood ORDER NUMBER(s): [id number], ACCESSION NUMBER(s): [id number] EXAM: CT CT AB PEL WO CON-NO ORAL OR IV INDICATION: n/v blood TECHNIQUE: Volumetric multidetector CT images of the abdomen and pelvis were obtained without contrast. All CT scans at this facility use dose modulation, iterative reconstruction, and/or weight based dosing when appropriate to reduce radiation dose to as low as reasonably achievable. COMPARISON: CT CT AB PEL WO CON-NO ORAL OR IV on DOS: 08/18/24 FINDINGS: [LOWER CHEST]: Trace 2 mm scattered micro nodules of the periphery of bilateral lower lobes. The cardiac size is normal without pericardial effusion. [LIVER]: Normal hepatic size without suspicious focal lesion. [GALLBLADDER AND BILIARY TREE]: No cholelithiasis. [SPLEEN]: Unremarkable. [PANCREAS]: Unremarkable. [ADRENAL GLANDS]: Unremarkable [KIDNEYS]: No hydronephrosis. No nephroureterolithiasis. [BLADDER]: Unremarkable for the degree distention. [REPRODUCTIVE ORGANS]: Unremarkable. [BOWEL/MESENTERY]: Stomach is decompressed however question slight gastric wall thickening consider correlation with physical exam limited evaluation without intravenous contrast or significant distention. No CT evidence of bowel obstruction. Normal appendix. [ASCITES]: Absent [LYMPHADENOPATHY]: No pathologically enlarged lymph nodes by CT size criteria [VASCULATURE]: No aneurysmal dilatation. [ABDOMINAL WALL]: Unremarkable. [MUSCULOSKELETAL]: No acute fracture or aggressive focal osseous lesion. IMPRESSION: 1. Stomach is decompressed limiting evaluation however question minimal gastric wall thickening. Correlate with clinical exam to exclude an underlying gastri tis. 2. No intraperitoneal free air or ascites. ATED BY: ALBARO JOSEPH MD DICTATED DATE/TIME: 10/05/241744 SIGNED BY: ALBARO JOSEPH MD SIGNED DATE/TIME: 10/05/241744 CC: Time of 1ST Reevaluation: 00:00 Reevaluation 1ST: Unchanged Patient Education/Counseling: Diagnosis, Treatment Family Education/Counseling: No Family Present Comments Patient presented with the above HPI.---GI bleed---workup was initiated. patient was found with the above mentioned diagnosis. the following medications were ordered: please refer to order lists of meds and tests obtained by myself Dr. Abel. Patient ED course and VS have been stabilized. Patient has been reassessed in the ED and remained in a stable condition. Pertinent incidental findings were discussed with the patient and/or family. Patient/family voices understanding and is agreeable with plan. Patient has been observed in the ED adequate length of time to insure improvement/stability. Escalation of care considered: Consideration of escalation to observation or admission Patient was ADMITTED to the medicine team for further evaluation and treatment of their presentation. All the reports of any imaging studies that were ordered by myself were reviewed by myself. Departure 1 Departure Time of Disposition: 18:05 Impression: Primary Impression: Hematemesis Additional Impression: Nausea and vomiting Disposition: 09 ADMITTED INPATIENT Admit to: Tele Condition: Guarded Discharged With: Self Critical Care Note Critical Care Time?: No I personally scribed for ROLANDA ABEL DO ([email or web address]) on 10/05/24 at 18:22. Electronically submitted by Darshan Arthur ([email or web address]). I personally scribed for ROLANDA ABEL DO ([email or web address]) on 10/05/24 at 19:04. Elec tronically submitted by Darshan Arthur ([email or web address]). ROLANDA ABEL DO October 05, 2024 18:05
[2024-10-05] MEDS: fentaNYL CITRATE 100 MCG/2 ML VL IV ONE (18:14)
[2024-10-05 18:19] LABS: Basophils # (auto) 0 10 ^3/uL (0-0.2); Basophils % (auto) 0.9 % (0.0-2.0); Eosinophils # (auto) 0 10 ^3/uL (0-0.8); Eosinophils % (auto) 0.4 % (0.0-7.0); Hematocrit 43.9 % (41.0-53.0); Hemoglobin 14.3 g/dL (13.5-17.5); Lymphocytes # (auto) 0.8 10 ^3/uL (0.4-5.4); Lymphocytes % (auto) 17.3 % (10.0-50.0); Mean Corpuscular Hemoglobin 27.9 pg (28.0-32.0); Mean Corpuscular Hgb Conc. 32.6 g/dL (32.0-36.0); Mean Corpuscular Volume 85.6 fL (80.0-100.0); Monocytes # (auto) 0.3 10 ^3/uL (0-1.3); Monocytes % (auto) 7.4 % (0.0-12.0); Neutrophils # (auto) 3.3 10 ^3/uL (1.6-8.6); Nucleated Red Blood Cells % 0.2 %; Platelet Count (auto) 242 10^3/uL (140-450); Red Blood Cells 5.14 10^6/uL (4.5-5.90); White Blood Cell 4.5 10^3/uL (4.4-10.8)
[2024-10-05 18:34] LABS: Alanine Aminotransferase 12 U/L (7-40); Albumin 4.8 g/dL (3.2-4.8); Alkaline Phosphatase 92 U/L (46-116); Anion Gap 9 (5-15); BUN/Creatinine Ratio 9.9 (10.0-20.0); Bilirubin, Total 0.3 mg/dL (0.2-1.0); Blood Urea Nitrogen 10 mg/dL (9-23); Calcium 9.8 mg/dL (8.7-10.4); Carbon Dioxide 26 mmol/L (20-31); Chloride 106 mmol/L (98-107); Glucose 79 mg/dL (74-106); Lipase 40 U/L (12-53); Potassium 4.2 mmol/L (3.5-5.1); Sodium 141 mmol/L (136-145); Total Protein 7.7 g/dL (5.7-8.2)
[2024-10-05 18:42] LABS: Aspartate Aminotransferase 13 U/L (13-40)
[2024-10-05 19:45] VITALS: PULSE 62; RESP 18; O2SAT 98
[2024-10-05] MEDS: SODIUM CHLORIDE 0.9% 1,000 ML IV SCH (21:45)
[2024-10-05] MEDS ORDERED: LORazepam 2MG/ML-1ML VIAL IM ONE (22:00)
[2024-10-05] MEDS ORDERED: SUCRALFATE 1 GM/10 ML ORAL SUSP GT ONE (22:00)
[2024-10-05] MEDS ORDERED: SUCRALFATE 1 GM/10 ML ORAL SUSP GT SCH (22:00)
[2024-10-05] MEDS: LORazepam 2MG/ML-1ML VIAL ONE (22:05)
[2024-10-05] MEDS: SODIUM CHLOR 0.9% PF (SALINE LOCK) 10ML VIAL/SYR IV SCH (22:05)
[2024-10-05] MEDS ORDERED: LORazepam 2MG/ML-1ML VIAL IV ONE (22:15)
[2024-10-05] MEDS: LORazepam 2MG/ML-1ML VIAL IV ONE (22:18)
--- NOTE | 2024-10-05 22:27 | DVHHP2 ---
History of Present Illness History of Present Illness Patient is 34 years old male with past medical history of anxiety, head and neck and brain carcinoma, paraganglioma, s/p craniectomy in 2014 (followed by chemotherapy and radiation), chronic pain syndrome, anxiety disorder came with a complaint of syncope and hematemesis. As per patient he has been having hematemesis since yesterday along with nausea and vomiting, 7 times. Patient also endorsed syncope today around 2:00 p.m. when he was walking to the restroom. As per patient he passed out for less than 5 minutes. No post syncope bladder or bowel incontinence. Patient denied any seizure-like activity or P syncope aura. Patient denied any fever, any diarrhea, dysuria, acute joint pain or swelling, dysarthria or change in vision. On initial lab workup hemoglobin stable at 14.3. EKG sinus rhythm. Patient was also admitted at [facility] in July with a complaint of hematemesis and he was found to have gastritis and hiatus hernia. CT head-1. No acute intracranial process.2. Postoperative changes of left mastoid and temporal bone with numerous adjacent metallic densities noted. CT abdomen and pelvis- 2 mm scattered micro nodules of the periphery of bilateral lower lobes. The cardiac size is normal without pericardial effusion. Stomach is decompressed limiting evaluation however question minimal gastric wall thickening. Correlate with clinical exam to exclude an underlying gastritis. No intraperitoneal free air or ascites. Carotid Doppler-No evidence of hemodynamically significant stenosis in the carotid arteries. 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 Cardiovascular- deny acute chest pain or shortness of breath or cough or palpitation Respiratory denies cough or short of breath or wheezing Musculoskeletal-denies acute joint swelling or tenderness or redness Neurological- denies acute dysarthria, dysphagia, change in vision Psychiatry- denies depression or SI or HI Skin- denies acute rash or purpura Allergies: Coded Allergies: Acetaminophen (Verified Allergy, Unknown, 09/02/21) Diphenhydramine (Verified Allergy, Unknown, 09/02/21) Metoclopramide (Verified Allergy, Unknown, 07/16/24) Prochlorperazine (Verified Allergy, Unknown, 07/16/24) Uncoded Allergies: BLEACH (Allergy, Unknown, 09/02/21) MRI CONTRAST (Allergy, Unknown, 09/02/21) Medications Current Medications Medications Dose Ordered Sig/[place] Route Start Time Stop Time Status Last Admin Dose Admin Sodium Chloride 10 ml Q8HR IV 10/05/24 22:00 10/05/24 22:05 10 ML Sodium Chloride 1,000 ml @ 120 mls/hr Q8H20M IV 10/05/24 21:45 Ondansetron HCl 4 mg Q4HP PRN IV 10/05/24 21:45 Pantoprazole Sodium 40 mg BID IV 10/05/24 22:00 Exam Vital Signs Vital Signs Date Time Temp Pulse Resp B/P (MAP) Pulse Ox O2 Delivery O2 Flow Rate FiO2 10/05/24 20:00 56 10/05/24 19:45 97.9 19 114/84 (94) 98 97.9 10/05/24 19:45 Room Air* 0 21 Exam General examination- awake, alert, oriented, scar marlen on the left side of the neck from previous surgery HEENT- PEERLA, no acute nasal discharge Cardiovascular- S1-S2 audible, rate and rhythm regular, no murmur Respiratory- CTAB, no wheeze or rhonchi Gastrointestinal-epigastric tenderness+, bowel sound+. Nondistended Musculoskeletal-no acute joint swelling or tenderness or redness Lower extremity- no leg edema Neurological- cranial nerves intact, no acute dysarthria or dysphagia Psychiatry- denies depression or SI or HI Skin- no acute rash or purpura Labs/Xrays Labs Test 10/05/24 17:40 Range/Units White Blood Count 4.5 4.4-10.8 10^3/uL Red Blood Count 5.14 4.5-5.90 10^6/uL Hemoglobin 14.3 13.5-17.5 g/dL Hematocrit 43.9 41.0-53.0 % Mean Corpuscular Volume 85.6 80.0-100.0 fL Mean Corpuscular Hemoglobin 27.9 L 28.0-32.0 pg Mean Corpuscular Hemoglobin Concent 32.6 32.0-36.0 g/dL Red Cell Distribution Width 18.0 H 11.8-14.3 % Platelet Count 242 140-450 10^3/uL Mean Platelet Volume 9.3 6.9-10.8 fL Neutrophils (%) (Auto) 74.0 37.0-80.0 % Lymphocytes (%) (Auto) 17.3 10.0-50.0 % Monocytes (%) (Auto) 7.4 0.0-12.0 % Eosinophils (%) (Auto) 0.4 0.0-7.0 % Basophils (%) (Auto) 0.9 0.0-2.0 % Neutrophils # (Auto) 3.3 1.6-8.6 10 ^3/uL Lymphocytes # (Auto) 0.8 0.4-5.4 10 ^3/uL Monocytes # (Auto) 0.3 0-1.3 10 ^3/uL Eosinophils # (Auto) 0 0-0.8 10 ^3/uL Basophils # (Auto) 0 0-0.2 10 ^3/uL Nucleated Red Blood Cells 0.2 % Sodium Level 141 136-145 mmol/L Potassium Level 4.2 3.5-5.1 mmol/L Chloride Level 106 98-107 mmol/L Carbon Dioxide Level 26 20-31 mmol/L Anion Gap 9 5-15 Blood Urea Nitrogen 10 9-23 mg/dL Creatinine 1.01 0.700-1.30 mg/dL Glomerular Filtration Rate Calc 99 >90 mL/min BUN/Creatinine Ratio 9.9 L 10.0-20.0 Serum Glucose 79 74-106 mg/dL Lactic Acid Level 1.5 0.4-2.0 mmol/L Calcium Level 9.8 8.7-10.4 mg/dL Magnesium Level 2.0 1.6-2.6 mg/dL Total Bilirubin 0.3 0.2-1.0 mg/dL Aspartate Amino Transferase (AST) 13 13-40 U/L Alanine Aminotransferase (ALT) 12 7-40 U/L Alkaline Phosphatase 92 46-116 U/L Total Protein 7.7 5.7-8.2 g/dL Albumin 4.8 3.2-4.8 g/dL Lipase 40 12-53 U/L Plasma/Serum Blood Alcohol 3.9 <10 mg/dL Assessment/Plan Assessment/Plan Assessment and plan Acute hematemesis likely from upper GI bleeding Nausea and vomiting and hematemesis likely from gastritis Syncope under evaluation likely due to orthostatic, cardiac arrhythmia History of head and neck and throat carcinoma, status post surgical intervention 2 mm scattered micro nodules of the periphery of bilateral lower lobes. Anxiety CT head negative for acute intracranial abnormality -CT abdomen- CT abdomen and pelvis- 2 mm scattered micro nodules of the pe riphery of bilateral lower lobes. The cardiac size is normal without pericardial effusion. Stomach is decompressed limiting evaluation however question minimal gastric wall thickening. Correlate with clinical exam to exclude an underlying gastritis EKG sinus rhythm Carotid Doppler negative for significant stenosis of the carotid artery UDS positive for fentanyl and benzos Plan NPO IV pantoprazole 40 mg IV b.i.d. Ordered blood typing and cross matching Ordered 2 large bore IV cannula Ordered echo 2D Ordered carotid Doppler Ordered orthostatic vitals EKG sinus rhythm We will continue telemetry for now Ordered FOBT Ordered gastroenterology consult for further evaluation and care Goals of care, Code status ; discussed with >15 minutes PUD prophylaxis: Pantoprazole DVT prophylaxis: SCD Plan discussed with Dr. Braxton , nursing staff, Total time spent on patient evaluation, chart review, assessment and plan, discussion discussion >35 minutes Plan discussed with: Patient, Other (RN) My Orders Orders - FLORINA HART RESIDENT Procedure Category Date Status Time Admit ADMIT 10/05/24 Transmitted 21:40 Code Status CODE 10/05/24 Transmitted 21:40 Sodium Chloride Lock PHA 10/05/24 In Process (Saline Lock Ns) 22:00 Sodium Chloride 0.9% PHA 10/05/24 In Process 21:45 Ondansetron Hcl PHA 10/05/24 In Process (Zofran) 21:45 Complete Blood Count LAB 10/06/24 Verified 04:00 Comprehensive LAB 10/06/24 Verified Metabolic Panel 04:00 Npo (Nothing By DIET 10/06/24 Transmitted Mouth) Diet Breakfast Echo 2d Mode Cardiac US 10/05/24 Logged DOP 21:40 Notify Of Changes MERCEDES 10/05/24 In Process From Base 21:40 Operations Professional For MERCEDES 10/05/24 In Process 24 Hours 21:40 Pantoprazole PHA 10/05/24 In Process (Protonix) 22:00 Stool Occult Blood LAB 10/05/24 Logged 21:48 Orthostatic Vital ORDERS 10/05/24 Transmitted Signs 21:48 Carotid Duplx W Color US 10/05/24 Logged DOP 21:48 Drug Screen LAB 10/05/24 Logged 21:52 2 Large Bore Ivs MERCEDES 10/05/24 In Process (20mg Or Larg 21:53 Date of Service: October 05, 2024 Billing Provider: CHEPE BRAXTON MD Common Visit Codes: [id number] INP/OBS CARE (HIGH) Secondary Visit Codes: [id number] CARE PLAN 30 MINUTES FLORINA HART RESIDENT October 05, 2024 22:27
[2024-10-05] MEDS: MORPHINE SULFATE INJ 2 MG/ml SYRG IV PRN (23:17)
[2024-10-05] MEDS: ONDANSETRON HCL 4 MG/2 ML VIAL IV PRN (23:18)
[2024-10-05] MEDS: PANTOPRAZOLE 40 MG/10 ML VIAL INJ IV SCH (23:19)
[2024-10-05 23:36] LABS: Urine Bacteria None Seen /hpf (None Seen)
[2024-10-05 23:37] LABS: Folate (Folic Acid) 5.82 ng/mL (>5.38)
[2024-10-05 23:50] VITALS: BP 116/75; PULSE 78; RESP 18; TEMP 97.5; O2SAT 98
[2024-10-05 23:56] LABS: Opiate Scree,Urine Neg (NEGATIVE)
[2024-10-06] VITALS (8 sets, daily range): BP systolic 116–151; BP diastolic 69–104; PULSE 60–90; RESP 14–20; TEMP 97.3–98.5; O2SAT 98–100
--- NOTE | 2024-10-06 00:08 | DVH ---
Carotid Duplex Clinical History: syncope Comparison: CAROTID DUPLX W COLOR DOP on DOS: 01/26/22 Technique: Duplex Doppler evaluation of the extracranial carotid and vertebral arteries including color Doppler and spectral/pulsed waveform analysis was performed. Findings: RIGHT SIDE: The peak systolic velocities are 93 cm/s in the CCA, 72 cm/s in the ICA. The ICA/CCA ratio is 0.8. The external carotid artery is patent with peak systolic velocity of 77 cm/s proximally. There is appropriate antegrade flow in the right vertebral artery. LEFT SIDE: The peak systolic velocities are 65 cm/s in the CCA, 69 cm/s in the ICA. The ICA/CCA ratio is 1.1. The external carotid artery is patent with peak systolic velocity of 77 cm/s proximally. There is appropriate antegrade flow in the left vertebral artery. IMPRESSION: No evidence of hemodynamically significant stenosis in the carotid arteries. Reference: Radiology 2003; 229:340-346 Normal ICA PSV is <125 cm/sec and no plaque or intimal thickening is visible sonographically addition al criteria include ICA/CCA PSV ratio <2.0 and ICA EDV <40 cm/sec <50% ICA stenosis ICA PSV is <125 cm/sec and plaque or intimal thickening is visible sonographically additional criteria include ICA/CCA PSV ratio <2.0 and ICA EDV <40 cm/sec 50-69% ICA stenosis ICA PSV is 125-230 cm/sec and plaque is visible sonographically additional criter ia include ICA/CCA PSV ratio of 2.0-4.0 and ICA EDV of 40-100 cm/sec 70% ICA stenosis but less than near occlusion ICA PSV is >230 cm/sec and visible plaque and luminal narrowing are seen at dailey-scale and color Doppler ultrasound (the higher the Doppler parameters lie above the threshold of 230 cm/sec, the greater the likelihood of severe disease) additional criteria include ICA/CCA PSV ratio >4 and ICA EDV >100 cm/sec
[2024-10-06 00:10] LABS: Amphetamine Screen, Urine Neg (NEGATIVE); Barbiturate Scree,Urine Neg (NEGATIVE); Benzodiazephine Screen, Urine Pos (NEGATIVE); Cannabinoid Screen, Urine Neg (NEGATIVE); Cocaine Screen, Urine Neg (NEGATIVE); Phencyclidine Screen, Urine Neg (NEGATIVE)
[2024-10-06 00:35] LABS: Urine Blood Negative /uL (Negative); Urine Clarity Clear (Clear); Urine Color Light-Yellow (Yellow); Urine Mucus FEW (None Seen); Urine Protein, UAD Negative (Negative); Urine Specific Gravity 1.013 (1.001-1.035); Urine Squamous Epithelial Cell None Seen /hpf (<5); Urine Urobilinogen Normal (Negative)
[2024-10-06 00:36] LABS: Urine WBC < 1 /HPF (0-3)
--- NOTE | 2024-10-06 06:26 | ECG ---
[facility] Test Date: 2024-10-05 Test Time: 16:53:54 Pat Name: NADEEN HARRISON Department: ED Room: 0214T A Gender: M Cigar Brander: JOHN : 1990 Requested By: ROLANDA ABEL Order Number: [id number] Reading MD: Eric Carpio Measurements Intervals [place] Rate: 87 P: 57 ID: [id number] QRS: 31 QRSD: 89 T: 32 QT: 366 QTc: 441 Interpretive Statements Sinus rhythm ST elev, probable normal early repol pattern Electronically Signed On 10-09-2024 11:57:54 PDT by Eric Carpio Please click the below link to view image of tracing.
[2024-10-06 06:33] LABS: Alanine Aminotransferase 10 U/L (7-40); Albumin 4.7 g/dL (3.2-4.8); Alkaline Phosphatase 87 U/L (46-116); Anion Gap 9 (5-15); Aspartate Aminotransferase 13 U/L (13-40); Bilirubin, Total 0.6 mg/dL (0.2-1.0); Calcium 9.7 mg/dL (8.7-10.4); Carbon Dioxide 24 mmol/L (20-31); Glucose 87 mg/dL (74-106); Potassium 3.7 mmol/L (3.5-5.1); Sodium 140 mmol/L (136-145); Total Protein 7.8 g/dL (5.7-8.2)
[2024-10-06 06:41] LABS: Blood Urea Nitrogen 9 mg/dL (9-23); Chloride 107 mmol/L (98-107)
[2024-10-06 07:00] LABS: Basophils # (auto) 0 10 ^3/uL (0-0.2); Basophils % (auto) 1.1 % (0.0-2.0); Eosinophils # (auto) 0.1 10 ^3/uL (0-0.8); Eosinophils % (auto) 1.7 % (0.0-7.0); Hematocrit 43.3 % (41.0-53.0); Hemoglobin 14.3 g/dL (13.5-17.5); Lymphocytes # (auto) 1.3 10 ^3/uL (0.4-5.4); Mean Corpuscular Hemoglobin 28.4 pg (28.0-32.0); Mean Corpuscular Hgb Conc. 33.1 g/dL (32.0-36.0); Mean Corpuscular Volume 85.8 fL (80.0-100.0); Monocytes # (auto) 0.4 10 ^3/uL (0-1.3); Monocytes % (auto) 9.3 % (0.0-12.0); Neutrophils # (auto) 2.1 10 ^3/uL (1.6-8.6); Neutrophils % (auto) 53.9 % (37.0-80.0); Nucleated Red Blood Cells % 0.4 %; Platelet Count (auto) 246 10^3/uL (140-450); Red Blood Cells 5.04 10^6/uL (4.5-5.90); Red Cell Distribution Width 18.5 % (11.8-14.3); White Blood Cell 3.9 10^3/uL (4.4-10.8)
[2024-10-06] MEDS: ERGOCALCIFEROL 50,000 UNIT(1.25MG) CAP PO SCH (10:00)
[2024-10-06] MEDS ORDERED: HYDROcodone-ACET 10/325MG TAB PO PRN (11:00)
[2024-10-06] MEDS: oxyCODONE HCL 5MG TAB PO PRN (11:50)
[2024-10-06] MEDS: SUCRALFATE 1 GM/10 ML ORAL SUSP PO SCH (11:51)
[2024-10-06] MEDS: ALPRAZolam 0.5 MG TAB PO PRN (11:51)
[2024-10-06] MEDS ORDERED: ENOXAPARIN SOD 40 MG/0.4 ML SYRINGE SC SCH (12:15)
--- NOTE | 2024-10-06 12:15 | DVHPNRES ---
Progress Note Date Seen: October 06, 2024 Resident Creating Document: LUIS HERNÁNDEZ RESIDENT Has the PT tested + for MRSA If YES, has PT been informed?: No Medical Necessity Reason Pt with a Central, PICC or Fol: No Subjective Review of Systems Sukhdeep Muñoz III is a 34 years old male with a PMH of anxiety, Paraganglioma, head, neck and brain carcinoma status post craniectomy 2014 followed by chemo and radio, chronic pain syndrome, presented to the ED with the chief complaints of syncope and hematemesis. Patient reported that he has been sitting, suddenly had unwitnessed syncope without any presyncopal and presyncopal symptoms, lost consciousness less than 5 minutes per patient. Patient also reported he has been having hematemesis for last 3 days. Patient denied any fever, any diarrhea, dysuria, acute joint pain or swelling, dysarthria or change in vision. Patient had endoscopy in July biopsy revealed chronic inflammation and reactive changes Lives with mom, smokes 4-5 cigarettes per day, denies alcoholism or drug abuse Patient seen and examined at the bedside. Patient currently reporting generalized pain and headache, given [place]. Patient reporting mild nausea. Patient reports: No new complaints Changes from previous H/P or p: No Changes Objective vital signs Vital Sign Date Time Temp Pulse Resp B/P (MAP) Pulse Ox O2 Delivery O2 Flow Rate FiO2 10/06/24 09:00 65 18 135/92 (106) 100 10/06/24 09:00 98.4 98.4 10/06/24 08:00 Room Air* 0 21 Total Intake and Output 10/05/24 10/05/24 10/06/24 15:00 23:00 07:00 Intake Total 0 ml Balance 0 ml medications Current Medications Medications Dose Ordered Sig/[place] Route Start Time Stop Time Status Last Admin Dose Admin Sodium Chloride 10 ml Q8HR IV 10/05/24 22:00 10/06/24 06:25 10 ML Sodium Chloride 1,000 ml @ 120 mls/hr Q8H20M IV 10/05/24 21:45 10/06/24 06:25 120 MLS/HR Ondansetron HCl 4 mg Q4HP PRN IV 10/05/24 21:45 10/06/24 11:51 4 MG Pantoprazole Sodium 40 mg BID IV 10/05/24 22:00 10/06/24 10:17 40 MG Morphine Sulfate 1 mg Q6HP PRN IV 10/05/24 22:15 10/06/24 06:41 1 MG Ergocalciferol 50,000 unit Q7D PO 10/06/24 10:00 Alprazolam 2 mg TID PRN PO 10/06/24 11:15 10/06/24 11:51 2 MG Sucralfate 1 gm TID@0600,1130,2200 PO 10/06/24 11:30 10/06/24 11:51 1 GM Oxycodone HCl 10 mg Q6HP PRN PO 10/06/24 11:15 10/06/24 11:50 10 MG Examination General examination- awake, alert, oriented, scar marlen on the left side of the neck from previous surgery HEENT- PEERLA, no acute nasal discharge Cardiovascular- S1-S2 audible, rate and rhythm regular, no murmur Respiratory- CTAB, no wheeze or rhonchi Gastrointestinal-Generalized abdominal tenderness, bowel sound+. Nondistended Musculoskeletal-no acute joint swelling or tenderness or redness Lower extremity- no leg edema Neurological- cranial nerves intact, no acute dysarthria or dysphagia Psychiatry- denies depression or SI or HI Skin- no acute rash or purpura laboratory and microbiology Laboratory Tests 10/06/24 05:17 Test 10/06/24 05:17 Range/Units Serum Glucose 87 74-106 mg/dL Labs and/or images reviewed: Labs reviewed by me, Image(s) reviewed by me Problem List/Assessment/Plan Problem List/Assessment/Plan # Syncope # rule out arrhythmias/ vasovagal # ? orthostatic hypotension - telemetry - EKG, sinus rhythm - head CT no acute changes except postoperative dizziness - carotid Doppler showed no significant stenosis - unable to do CT angio head and neck mucous patient is contrast allergy - orthostatic vitals 1 set positive, repeat - cardiology consult # ? upper GI bleed # gastritis - monitored CBC - GI consult - Protonix and Carafate - CT abdominal pelvis showed Stomach is decompressed limiting evaluation however question minimal gastric wall thickening. Correlate with clinical exam to exclude an underlying gastritis. # chronic pain syndrome - oxycodone and morphine alternatively as needed # tobacco abuse disorder/ dependence- counseled regarding cessation, consider nicotine patch if needed # Vit D deficiency - Repleting # 2 mm scattered micro nodules of the periphery of bilateral lower lobes.- outpatient follow up with pulmonology # anxiety- alprazolam as needed Protonix SCD Liquid diet Goals of care discussed with the patient for more than 29 minutes: Full code status Case discussed with Dr. Leonard, patient and nurse Plan discussed with: Patient My Orders My Orders Orders - LUIS HERNÁNDEZ Procedure Category Date Status Time Orthostatic Vital ORDERS 10/06/24 Transmitted Signs 10:24 Alprazolam Tablet PHA 10/06/24 In Process (Xanax Tablet) 11:15 Sucralfate Susp PHA 10/06/24 In Process (Carafate Susp) 11:30 * Cardiology Consult CONS 10/06/24 Transmitted 11:05 Oxycodone Immediate PHA 10/06/24 In Process Rel Tablet 11:15 Complete Blood Count LAB 10/07/24 Verified 04:00 Basic Metabolic Panel LAB 10/07/24 Verified 04:00 Magnesium LAB 10/07/24 Verified 04:00 LUIS HERNÁNDEZ RESIDENT October 06, 2024 12:15
--- NOTE | 2024-10-06 13:42 | DVHINCON2 ---
GI Consult Consult Note GI consult note Date of Consultation: 10/06/2024 Chief Complaint: Hematemesis Referring Physician: Dr. Ellis H&P: 34-year-old male presented to ER with complains of syncope and hematemesis Patient complains of nausea and vomiting for one day, with complains of hematemesis. Patient also complaining of generalized abdominal pain for three days. No melena or red blood in stool. Patient is status post EGD 08/08/2024 Patient also has complains of syncope for less than 5 minutes, cardiology consult is pending Operative Report DATE OF OPERATION: 08/08/24 PROCEDURE: Upper Endoscopy with biopsy. PREOPERATIVE INDICATION: The patient is a 33 -year-old male undergoing endoscopy for epigastric pain and upper GI bleed POSTOPERATIVE DIAGNOSES: 1. 3-4 cm sliding-type hiatal hernia with grade B linear erosive esophagitis 2. Mild gastritis otherwise normal examination up to the 2nd and 3rd part of the duodenum 3. Otherwise normal examination of the 2nd and 3rd part of the duodenum with no fresh or old blood in the GI tract at this time Pathology Benign duodenal mucosa. Mild chronic inactive gastritis. 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 Family History: Noncontributory Review of Systems: Constitutional: no fever, chill, weight loss HEENT: no eye pain, no hearing loss, no oral lesion, no scleral icterus Heart: no chest pain, no chest pressure Lung: no cough, no dyspnea with exertion Abdomen: see HPI Physical exam: General: NAD, AAOX3 Chest: lung sandoval clear to auscultation Heart: RRR, no murmur Abdomen: + tenderness to palpation, +BS Labs: Labs Test 10/06/24 05:17 10/05/24 23:24 10/05/24 23:10 10/05/24 17:40 Range/Units White Blood Count 3.9 L 4.4-10.8 10^3/uL Red Blood Count 5.04 4.5-5.90 10^6/uL Hemoglobin 14.3 13.5-17.5 g/dL Hematocrit 43.3 41.0-53.0 % Mean Corpuscular Volume 85.8 80.0-100.0 fL Mean Corpuscular Hemoglobin 28.4 28.0-32.0 pg Mean Corpuscular Hemoglobin Concent 33.1 32.0-36.0 g/dL Red Cell Distribution Width 18.5 H 11.8-14.3 % Platelet Count 246 140-450 10^3/uL Mean Platelet Volume 10.3 6.9-10.8 fL Neutrophils (%) (Auto) 53.9 37.0-80.0 % Lymphocytes (%) (Auto) 34.0 10.0-50.0 % Monocytes (%) (Auto) 9.3 0.0-12.0 % Eosinophils (%) (Auto) 1.7 0.0-7.0 % Basophils (%) (Auto) 1.1 0.0-2.0 % Neutrophils # (Auto) 2.1 1.6-8.6 10 ^3/uL Lymphocytes # (Auto) 1.3 0.4-5.4 10 ^3/uL Monocytes # (Auto) 0.4 0-1.3 10 ^3/uL Eosinophils # (Auto) 0.1 0-0.8 10 ^3/uL Basophils # (Auto) 0 0-0.2 10 ^3/uL Nucleated Red Blood Cells 0.4 % Sodium Level 140 136-145 mmol/L Potassium Level 3.7 3.5-5.1 mmol/L Chloride Level 107 98-107 mmol/L Carbon Dioxide Level 24 20-31 mmol/L Anion Gap 9 5-15 Blood Urea Nitrogen 9 9-23 mg/dL Creatinine 1.12 0.700-1.30 mg/dL Glomerular Filtration Rate Calc 88 >90 mL/min BUN/Creatinine Ratio 8.0 L 10.0-20.0 Serum Glucose 87 74-106 mg/dL Calcium Level 9.7 8.7-10.4 mg/dL Total Bilirubin 0.6 0.2-1.0 mg/dL Aspartate Amino Transferase (AST) 13 13-40 U/L Alanine Aminotransferase (ALT) 10 7-40 U/L Alkaline Phosphatase 87 46-116 U/L Total Protein 7.8 5.7-8.2 g/dL Albumin 4.7 3.2-4.8 g/dL Urine Color Light-yellow Yellow Urine Clarity Clear Clear Urine pH 7.0 5.0-9.0 Urine Specific [place] 1.013 1.001-1.035 Urine Protein Negative Negative Urine Ketones Negative Negative Urine Blood Negative Negative /uL Urine Nitrite Negative Negative Urine Bilirubin Negative Negative Urine Urobilinogen Normal Negative mg/dL Urine Leukocyte Esterase Negative Negative /uL Urine RBC None seen 0 - 3 /hpf Urine Microscopic WBC < 1 0-3 /HPF Urine Squamous Epithelial Cells None seen <5 /hpf Urine Bacteria None seen None Seen /hpf Urine Mucus Few None Seen Urine Glucose Normal Normal mg/dL Urine Opiates Screen Neg NEGATIVE Urine Fentanyl Screen Pos NEGATIVE Urine Barbiturates Screen Neg NEGATIVE Urine Phencyclidine Screen Neg NEGATIVE Urine Amphetamines Screen Neg NEGATIVE Urine Benzodiazepines Screen Pos NEGATIVE Urine Cocaine Screen Neg NEGATIVE Urine Cannabinoids Screen Neg NEGATIVE Vitamin B12 Level 522 211-911 pg/mL Folic Acid 5.82 >5.38 ng/mL Thyroid Stimulating Hormone (TSH) 0.87 0.55-4.78 uIU/mL Reticulocyte Count (auto) 0.49 L 0.5-1.5 % Lactic Acid Level 1.5 0.4-2.0 mmol/L Magnesium Level 2.0 1.6-2.6 mg/dL Lipase 40 12-53 U/L Vitamin D 25-Hydroxy 17.6 L 30.0-100 ng/mL Plasma/Serum Blood Alcohol 3.9 <10 mg/dL Imaging: CT abdomen pelvis IMPRESSION: 1. Stomach is decompressed limiting evaluation however question minimal gastric wall thickening. Correlate with clinical exam to exclude an underlying gastritis. 2. No intraperitoneal free air or ascites. CT head IMPRESSION: 1. No acute intracranial process. 2. Postoperative changes of left mastoid and temporal bone with numerous adjacent metallic densities noted. Assessment: GI bleed Gastritis Syncope Chronic pain syndrome Plan: Discussed with Dr. Saul Pinzno and Protonix. Continue Zofran Full liquid diet, advance as tolerated Supportive care recommended We will continue to monitor the patient Discussed plan with patient and RN Thank you for this consult Date of Service: October 06, 2024 Billing Provider: LUIS MIRANDA Common Visit Codes: CONSULT ONLY Consultation Codes: [id number] CONSULT <60MIN LUIS MIRANDA October 06, 2024 13:42
--- NOTE | 2024-10-06 14:18 | DVHINCON2 ---
Date Seen: October 06, 2024 Referring Physician MD Blane Reason for Consultation Syncope History of Present Illness This is a 34-year-old man who presented to the emergency room via EMS with a chief complaint of persistent nausea and vomiting. The patient reports he developed increased nausea and on the way to the bathroom he experienced a possible syncopal event for an unknown amount of time. States once he regained consciousness he was on his knees and was vomiting afterwards with reported hematemesis which prompted him to call 911. EN route to the hospital he was medicated with Zofran 8 mg x 2 and fentanyl 50 mcg x2. Denies any further syncopal/near syncopal events. The patient has a history of a brain tumor with a scheduled surgery at [facility] on 11/2024. He also reports a history of seizures. He underwent a 12 lead electrocardiogram revealing a normal sinus rhythm. Denies family history for cardiovascular disease. 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 Past Medical History Past Medical history reviewed. No other significant than mentioned above. Past Surgical History See HPI. Family History: Patient reports no known family medical history. Family History Family history reviewed. Denies for cardiovascular disease. Social History Denies the use of illicit drugs or alcohol. Admits to tobacco use, see HPI. Allergies: Coded Allergies: Acetaminophen (Verified Allergy, Unknown, 09/02/21) Diphenhydramine (Verified Allergy, Unknown, 09/02/21) Metoclopramide (Verified Allergy, Unknown, 07/16/24) Prochlorperazine (Verified Allergy, Unknown, 07/16/24) Uncoded Allergies: BLEACH (Allergy, Unknown, 09/02/21) MRI CONTRAST (Allergy, Unknown, 09/02/21) Home Meds Active Scripts Famotidine (PEPCID TABLET) 20 Mg Tb, 1 TAB PO BID for 60 Days, #120 TAB 5 Refills Prov:SERJIO SOW MD 09/10/24 Ondansetron HCl (Ondansetron Hydrochloride) 8 Mg Tab, 8 MG PO Q6HP PRN, #60 TAB Prov:SERJIO SOW MD 09/10/24 Reported Medications Promethazine HCl (Promethazine HCl) 6.25 Mg/5 Ml Syp, 20 ML PO QID PRN for NAUSEA / VOMITING 07/16/24 Pregabalin (Pregabalin) 75 Mg Cap, 1 CAP PO BID 07/16/24 Oxycodone HCl (Oxycodone Hydrochloride) 30 Mg Tab, 1 TAB PO Q4HPRN PRN for PAIN SCALE 1 THRU 6 11/10/23 Alprazolam (Alprazolam) 2 Mg Tab, 1 TAB PO TID PRN for ANXIETY 11/10/23 Pantoprazole Sodium Sesquihydr (Pantoprazole Sodium) 40 Mg Tab, 1 TAB PO BID 11/10/23 Home Meds Home medications reviewed. Current Medications Current Medications Medications (Trade) Dose Ordered Sig/[place] Route PRN Reason Start Time Stop Time Status Last Admin Sodium Chloride (Saline Lock Ns) 10 ml Q8HR IV 10/05/24 22:00 10/06/24 06:25 Sodium Chloride 1,000 ml @ 120 mls/hr Q8H20M IV 10/05/24 21:45 10/06/24 06:25 Ondansetron HCl (Zofran) 4 mg Q4HP PRN IV NAUSEA / VOMITING 10/05/24 21:45 10/06/24 11:51 Pantoprazole Sodium (Protonix) 40 mg BID IV 10/05/24 22:00 10/06/24 10:17 Sucralfate (Carafate Susp) 1 gm QID@0600,1130,1700,2200 GT 10/05/24 22:00 10/05/24 22:04 DC Morphine Sulfate 1 mg Q6HP PRN IV SEVERE PAIN (7-10 PAIN SCALE) 10/05/24 22:15 10/06/24 06:41 Ergocalciferol (Vitamin D 50,000 Unit) 50,000 unit Q7D PO 10/06/24 10:00 Acetaminophen/ Hydrocodone Bitart ([place] 10/325MG Tab) 1 tab Q4HP PRN PO MODERATE PAIN (4-6 PAIN SCALE) 10/06/24 11:00 10/06/24 11:16 DC Alprazolam (Xanax Tablet) 2 mg TID PRN PO ANXIETY 10/06/24 11:15 10/06/24 11:51 Sucralfate (Carafate Susp) 1 gm TID@0600,1130,2200 PO 10/06/24 11:30 10/06/24 11:51 Oxycodone HCl 10 mg Q6HP PRN PO MODERATE PAIN (4-6 PAIN SCALE) 10/06/24 11:15 10/06/24 11:50 Enoxaparin Sodium (Lovenox) 40 mg DAILY SC 10/06/24 12:15 10/06/24 12:13 DC Review of Systems Constitutional: No symptom reported Ears, Nose, & Throat: No symptom reported Eyes: No symptom reported Neurological: Possible syncope Pulmonary/Respiratory: No symptom reported Cardiovascular: No symptom reported Gastrointestinal: Nausea and vomiting Genitourinary: No symptom reported Musculoskeletal: No symptom reported Skin: No symptom reported Psychiatric: No symptom reported Endocrine: No symptom reported Hemotologic/Lymphatic: No symptom reported Vital Signs Vital Signs Date Time Temp Pulse Resp B/P (MAP) Pulse Ox O2 Delivery O2 Flow Rate FiO2 10/06/24 09:00 65 18 135/92 (106) 100 10/06/24 09:00 98.4 98.4 10/06/24 08:00 Room Air* 0 21 Physical Exam General Appearance: Cooperative. Well developed. Well nourished. Appears jess rgic Head Exam: Normal inspection Neck Exam: Normal inspection. Non-tender. Normal alignment Pulmonary/Respiratory: Chest non-tender. Clear bilateral breath sounds Cardiovascular/Chest: Regular rate and rhythm. S1, S2. NSR. No murmurs. No JVD. Peripheral Pulses: 2+ Radial (R). 2+ Radial (L). 2+ Pedal (R). 2+ Pedal (L) Abdominal Exam: Normal bowel sounds. Soft. Nontender. No hepatospenomegaly. No masses Ankle Exam: Negative ankle edema Lower extremities: Negative lower extremity edema Neuro/Mental Status: A&O x4. Coherent Thoughts/Psych: Normal thought pattern. Appropriate mood and affect. Good judgement and insight Appearance: In no acute distress Skin Exam: Normal inspection. Normal color. Warm. Dry Labs/Diagnostic Data Labs Test 10/06/24 05:17 10/05/24 23:24 10/05/24 23:10 10/05/24 17:40 Range/Units White Blood Count 3.9 L 4.4-10.8 10^3/uL Red Blood Count 5.04 4.5-5.90 10^6/uL Hemoglobin 14.3 13.5-17.5 g/dL Hematocrit 43.3 41.0-53.0 % Mean Corpuscular Volume 85.8 80.0-100.0 fL Mean Corpuscular Hemoglobin 28.4 28.0-32.0 pg Mean Corpuscular Hemoglobin Concent 33.1 32.0-36.0 g/dL Red Cell Distribution Width 18.5 H 11.8-14.3 % Platelet Count 246 140-450 10^3/uL Mean Platelet Volume 10.3 6.9-10.8 fL Neutrophils (%) (Auto) 53.9 37.0-80.0 % Lymphocytes (%) (Auto) 34.0 10.0-50.0 % Monocytes (%) (Auto) 9.3 0.0-12.0 % Eosinophils (%) (Auto) 1.7 0.0-7.0 % Basophils (%) (Auto) 1.1 0.0-2.0 % Neutrophils # (Auto) 2.1 1.6-8.6 10 ^3/uL Lymphocytes # (Auto) 1.3 0.4-5.4 10 ^3/uL Monocytes # (Auto) 0.4 0-1.3 10 ^3/uL Eosinophils # (Auto) 0.1 0-0.8 10 ^3/uL Basophils # (Auto) 0 0-0.2 10 ^3/uL Nucleated Red Blood Cells 0.4 % Sodium Level 140 136-145 mmol/L Potassium Level 3.7 3.5-5.1 mmol/L Chloride Level 107 98-107 mmol/L Carbon Dioxide Level 24 20-31 mmol/L Anion Gap 9 5-15 Blood Urea Nitrogen 9 9-23 mg/dL Creatinine 1.12 0.700-1.30 mg/dL Glomerular Filtration Rate Calc 88 >90 mL/min BUN/Creatinine Ratio 8.0 L 10.0-20.0 Serum Glucose 87 74-106 mg/dL Calcium Level 9.7 8.7-10.4 mg/dL Total Bilirubin 0.6 0.2-1.0 mg/dL Aspartate Amino Transferase (AST) 13 13-40 U/L Alanine Aminotransferase (ALT) 10 7-40 U/L Alkaline Phosphatase 87 46-116 U/L Total Protein 7.8 5.7-8.2 g/dL Albumin 4.7 3.2-4.8 g/dL Urine Color Light-yellow Yellow Urine Clarity Clear Clear Urine pH 7.0 5.0-9.0 Urine Specific [place] 1.013 1.001-1.035 Urine Protein Negative Negative Urine Ketones Negative Negative Urine Blood Negative Negative /uL Urine Nitrite Negative Negative Urine Bilirubin Negative Negative Urine Urobilinogen Normal Negative mg/dL Urine Leukocyte Esterase Negative Negative /uL Urine RBC None seen 0 - 3 /hpf Urine Microscopic WBC < 1 0-3 /HPF Urine Squamous Epithelial Cells None seen <5 /hpf Urine Bacteria None seen None Seen /hpf Urine Mucus Few None Seen Urine Glucose Normal Normal mg/dL Urine Opiates Screen Neg NEGATIVE Urine Fentanyl Screen Pos NEGATIVE Urine Barbiturates Screen Neg NEGATIVE Urine Phencyclidine Screen Neg NEGATIVE Urine Amphetamines Screen Neg NEGATIVE Urine Benzodiazepines Screen Pos NEGATIVE Urine Cocaine Screen Neg NEGATIVE Urine Cannabinoids Screen Neg NEGATIVE Vitamin B12 Level 522 211-911 pg/mL Folic Acid 5.82 >5.38 ng/mL Thyroid Stimulating Hormone (TSH) 0.87 0.55-4.78 uIU/mL Reticulocyte Count (auto) 0.49 L 0.5-1.5 % Lactic Acid Level 1.5 0.4-2.0 mmol/L Magnesium Level 2.0 1.6-2.6 mg/dL Lipase 40 12-53 U/L Vitamin D 25-Hydroxy 17.6 L 30.0-100 ng/mL Plasma/Serum Blood Alcohol 3.9 <10 mg/dL Assessment Syncopal event in the setting of + orthostatic hypotension Likely vasovagal event secondary N/V Rule out tachy/jv arrhythmias Rule out upper GI bleed Brain tumor stage II Nicotine dependence Plan/Recommendation (Dr. Weiner) Syncopal event likely secondary to orthostatic hypotension and possible vasovagal event. We will continue further cardiac evaluation with a transthoracic echocardiogram to rule out structural heart disease. Given orthostatic hypotension continue fluid replacement and consider compression stockings. Consider an outpatient event monitor if deemed necessary. In the setting of a normal echocardiogram, there is no further cardiac workup indicated at this time. Thank you for allowing us to participate in this patient's care. Please call if you have any questions or concerns. This medical document was created using an electronic medical record system with voice recognition software and computerized dictation system. Although this document has been carefully reviewed, there might still be some phonetic and typographical errors. Occasional wrong-word or ``sound-alike substitutions may have occurred due to the inherent limitations of voice recognition software. These areas are purely typographical due to imperfections of the software programs and do not reflect any compromise in the patient's medical care. Daniel bhatti read the chart carefully and recognize, using context, where these substitutions have occurred. Plan discussed with: Patient, Other NYHA Physical activity limitations: NA Date of Service: October 06, 2024 Billing Provider: ENEDINA NEWBERRY Cardiology Common Codes: [id number] INP/OBS CARE (High) ENEDINA NEWBERRY October 06, 2024 14:18
--- NOTE | 2024-10-06 18:58 | DVHINCON2 ---
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 Patient reports he developed increased nausea and on the way to the bathroom he experienced a possible syncopal event for an unknown amount of time. Patient states once he regained consciousness he was on his knees and was vomiting afterwards with reported hematemesis which prompted him to call 911. En route to the hospital he was medicated with Zofran 8 mg x 2 and fentanyl 50 mcg x2. Denies any further syncopal/near syncopal events. The patient has a history of a brain tumor with a scheduled surgery at [facility] [place] on 11/2024. He also reports a history of seizures. He underwent a 12 lead electrocardiogram revealing a normal sinus rhythm. Denies family history for cardiovascular disease. CT ABD PEL showed stomach is decompressed limiting evaluation however question minimal gastric wall thickening. CT head shows postoperative changes of left mastoid and temporal bone with numerous adjacent metallic densities noted. Cartoid Doppler show no evidence of hemodynamically significant stenosis in the carotid arteries. Patient was admitted to the hospital. I am asked to consult on this patient. Past Medical History Past Medical history reviewed. No other significant than mentioned above. Past Surgical History See HPI. Family History: Patient reports no known family medical history. Allergies: Coded Allergies: Acetaminophen (Verified Allergy, Unknown, 09/02/21) Diphenhydramine (Verified Allergy, Unknown, 09/02/21) Metoclopramide (Verified Allergy, Unknown, 07/16/24) Prochlorperazine (Verified Allergy, Unknown, 07/16/24) Uncoded Allergies: BLEACH (Allergy, Unknown, 09/02/21) MRI CONTRAST (Allergy, Unknown, 09/02/21) Home Meds Active Scripts Famotidine (PEPCID TABLET) 20 Mg Tb, 1 TAB PO BID for 60 Days, #120 TAB 5 Refills Prov:SERJIO SOW MD 09/10/24 Ondansetron HCl (Ondansetron Hydrochloride) 8 Mg Tab, 8 MG PO Q6HP PRN, #60 TAB Prov:SERJIO SOW MD 09/10/24 Reported Medications Promethazine HCl (Promethazine HCl) 6.25 Mg/5 Ml Syp, 20 ML PO QID PRN for NAUSEA / VOMITING 07/16/24 Pregabalin (Pregabalin) 75 Mg Cap, 1 CAP PO BID 07/16/24 Oxycodone HCl (Oxycodone Hydrochloride) 30 Mg Tab, 1 TAB PO Q4HPRN PRN for PAIN SCALE 1 THRU 6 11/10/23 Alprazolam (Alprazolam) 2 Mg Tab, 1 TAB PO TID PRN for ANXIETY 11/10/23 Pantoprazole Sodium Sesquihydr (Pantoprazole Sodium) 40 Mg Tab, 1 TAB PO BID 11/10/23 Current Medications Current Medications Medications (Trade) Dose Ordered Sig/[place] Route PRN Reason Start Time Stop Time Status Last Admin Sodium Chloride (Saline Lock Ns) 10 ml Q8HR IV 10/05/24 22:00 10/06/24 14:25 Sodium Chloride 1,000 ml @ 120 mls/hr Q8H20M IV 10/05/24 21:45 10/06/24 14:30 Ondansetron HCl (Zofran) 4 mg Q4HP PRN IV NAUSEA / VOMITING 10/05/24 21:45 10/06/24 11:51 Pantoprazole Sodium (Protonix) 40 mg BID IV 10/05/24 22:00 10/06/24 10:17 Sucralfate (Carafate Susp) 1 gm QID@0600,1130,1700,2200 GT 10/05/24 22:00 10/05/24 22:04 DC Morphine Sulfate 1 mg Q6HP PRN IV SEVERE PAIN (7-10 PAIN SCALE) 10/05/24 22:15 10/06/24 14:28 Ergocalciferol (Vitamin D 50,000 Unit) 50,000 unit Q7D PO 10/06/24 10:00 Acetaminophen/ Hydrocodone Bitart ([place] 10/325MG Tab) 1 tab Q4HP PRN PO MODERATE PAIN (4-6 PAIN SCALE) 10/06/24 11:00 10/06/24 11:16 DC Alprazolam (Xanax Tablet) 2 mg TID PRN PO ANXIETY 10/06/24 11:15 10/06/24 11:51 Sucralfate (Carafate Susp) 1 gm TID@0600,1130,2200 PO 10/06/24 11:30 10/06/24 11:51 Oxycodone HCl 10 mg Q6HP PRN PO MODERATE PAIN (4-6 PAIN SCALE) 10/06/24 11:15 10/06/24 11:50 Enoxaparin Sodium (Lovenox) 40 mg DAILY SC 10/06/24 12:15 10/06/24 12:13 DC Review of Systems Constitutional: No symptom reported Ears, Nose, & Throat: No symptom reported Eyes: No symptom reported Neurological: Possible syncope Pulmonary/Respiratory: No symptom reported Cardiovascular: No symptom reported Gastrointestinal: Nausea and vomiting Genitourinary: No symptom reported Musculoskeletal: No symptom reported Skin: No symptom reported Psychiatric: No symptom reported Endocrine: No symptom reported Hemotologic/Lymphatic: No symptom reported Vital Signs Vital Signs Date Time Temp Pulse Resp B/P (MAP) Pulse Ox O2 Delivery O2 Flow Rate FiO2 10/06/24 14:28 65 18 142/99 10/06/24 13:00 98.1 100 98.1 10/06/24 08:00 Room Air* 0 21 Physical Exam GENERAL: Alert and oriented x 3. No acute distress. Appears lethargic. EYES: PERRL, EOMI. Anicteric. HENT: Moist mucous membranes. LUNGS: Clear to auscultation bilaterally. CARDIOVASCULAR: Regular rate and rhythm. ABDOMEN: Soft, nontender and nondistended. EXTREMITIES: No edema. NEUROLOGIC: No focal neurological deficits. SKIN: Warm, dry. Labs/Diagnostic Data Labs Test 10/06/24 05:17 10/05/24 23:24 10/05/24 23:10 10/05/24 17:40 Range/Units White Blood Count 3.9 L 4.4-10.8 10^3/uL Red Blood Count 5.04 4.5-5.90 10^6/uL Hemoglobin 14.3 13.5-17.5 g/dL Hematocrit 43.3 41.0-53.0 % Mean Corpuscular Volume 85.8 80.0-100.0 fL Mean Corpuscular Hemoglobin 28.4 28.0-32.0 pg Mean Corpuscular Hemoglobin Concent 33.1 32.0-36.0 g/dL Red Cell Distribution Width 18.5 H 11.8-14.3 % Platelet Count 246 140-450 10^3/uL Mean Platelet Volume 10.3 6.9-10.8 fL Neutrophils (%) (Auto) 53.9 37.0-80.0 % Lymphocytes (%) (Auto) 34.0 10.0-50.0 % Monocytes (%) (Auto) 9.3 0.0-12.0 % Eosinophils (%) (Auto) 1.7 0.0-7.0 % Basophils (%) (Auto) 1.1 0.0-2.0 % Neutrophils # (Auto) 2.1 1.6-8.6 10 ^3/uL Lymphocytes # (Auto) 1.3 0.4-5.4 10 ^3/uL Monocytes # (Auto) 0.4 0-1.3 10 ^3/uL Eosinophils # (Auto) 0.1 0-0.8 10 ^3/uL Basophils # (Auto) 0 0-0.2 10 ^3/uL Nucleated Red Blood Cells 0.4 % Sodium Level 140 136-145 mmol/L Potassium Level 3.7 3.5-5.1 mmol/L Chloride Level 107 98-107 mmol/L Carbon Dioxide Level 24 20-31 mmol/L Anion Gap 9 5-15 Blood Urea Nitrogen 9 9-23 mg/dL Creatinine 1.12 0.700-1.30 mg/dL Glomerular Filtration Rate Calc 88 >90 mL/min BUN/Creatinine Ratio 8.0 L 10.0-20.0 Serum Glucose 87 74-106 mg/dL Calcium Level 9.7 8.7-10.4 mg/dL Total Bilirubin 0.6 0.2-1.0 mg/dL Aspartate Amino Transferase (AST) 13 13-40 U/L Alanine Aminotransferase (ALT) 10 7-40 U/L Alkaline Phosphatase 87 46-116 U/L Total Protein 7.8 5.7-8.2 g/dL Albumin 4.7 3.2-4.8 g/dL Urine Color Light-yellow Yellow Urine Clarity Clear Clear Urine pH 7.0 5.0-9.0 Urine Specific [place] 1.013 1.001-1.035 Urine Protein Negative Negative Urine Ketones Negative Negative Urine Blood Negative Negative /uL Urine Nitrite Negative Negative Urine Bilirubin Negative Negative Urine Urobilinogen Normal Negative mg/dL Urine Leukocyte Esterase Negative Negative /uL Urine RBC None seen 0 - 3 /hpf Urine Microscopic WBC < 1 0-3 /HPF Urine Squamous Epithelial Cells None seen <5 /hpf Urine Bacteria None seen None Seen /hpf Urine Mucus Few None Seen Urine Glucose Normal Normal mg/dL Urine Opiates Screen Neg NEGATIVE Urine Fentanyl Screen Pos NEGATIVE Urine Barbiturates Screen Neg NEGATIVE Urine Phencyclidine Screen Neg NEGATIVE Urine Amphetamines Screen Neg NEGATIVE Urine Benzodiazepines Screen Pos NEGATIVE Urine Cocaine Screen Neg NEGATIVE Urine Cannabinoids Screen Neg NEGATIVE Vitamin B12 Level 522 211-911 pg/mL Folic Acid 5.82 >5.38 ng/mL Thyroid Stimulating Hormone (TSH) 0.87 0.55-4.78 uIU/mL Reticulocyte Count (auto) 0.49 L 0.5-1.5 % Lactic Acid Level 1.5 0.4-2.0 mmol/L Magnesium Level 2.0 1.6-2.6 mg/dL Lipase 40 12-53 U/L Vitamin D 25-Hydroxy 17.6 L 30.0-100 ng/mL Plasma/Serum Blood Alcohol 3.9 <10 mg/dL Assessment Syncopal event in the setting of + orthostatic hypotension. Likely vasovagal event secondary N/V. Rule out tachy/jv arrhythmias. Rule out upper GI bleed. Brain tumor stage II. Nicotine dependence. Plan/Recommendation I agree with your ongoing assessment and care of plan. Patient has been seen by Radha Hart NP on my behalf, her and I discussed the plan with the patient. Syncopal event likely secondary to orthostatic hypotension and possible vasovagal event. We will continue further cardiac evaluation with a transthoracic echocardiogram to rule out structural heart disease. Given orthostatic hypotension continue fluid replacement and consider compression stockings. Consider an outpatient event monitor if deemed necessary. Additional plan as per the hospital course. Plan discussed with: Patient NYHA Physical activity limitations: NA Date of Service: October 06, 2024 Billing Provider: ROMARIO HANNA MD Cardiology Common Codes: [id number] INP/OBS CARE (High) ROMARIO HANNA MD October 06, 2024 15:23
[2024-10-07] VITALS (8 sets, daily range): BP systolic 8–153; BP diastolic 79–102; PULSE 57–72; RESP 18–19; TEMP 98–98.7; O2SAT 97–99
--- NOTE | 2024-10-07 01:11 | DVHSR ---
APPROVED REPORT EXAM: Two-dimensional and M-mode echocardiogram with Doppler and color Doppler. Blood Pressure: 134/94 mmHg INDICATION Syncope valvular abnormality RISK FACTORS Height: 5'9, Weight: 161 DIMENSIONS LVDd4.2 (3.8-5.7cm)LA (2D)3.6 (1.9-4.0cm)Aortic Root2.5 (2.0-3.7cm) LVDs2.7 (2.5-4.0cm)LA (MM) (1.9-4.0cm)Aortic Cusp Exc3.5 (1.5-2.0cm) EF (%) 60.0 (55-70%)Rt. Atrium3.4 (1.9-4.0cm)Asc. Aorta1.7 cm IVSd0.9 (0.7-1.1cm)RV (D)4.0 (1.8-2.4cm) PWd0.8 (0.7-1.1cm) Mitral Valve MitralMitral Stenosis E wave1.16m/sMV Mean GR.mmHg A wave0.70m/sMV Peak GR.60mmHg E/A ratio1.72D MVAcm2 DECEL [id number] 1/2 [place] Aortic Valve Aortic ValveAortic Stenosis V11.22m/Sorin Mean GR.4mmHg V21.22m/Sorin Peak GR.6mmHg LVOT Diameter2.0 (1.8-2.4cm)Doppler AVA3.14cm2 Pulmonic Valve V20.93m/s Tricuspid Valve TR Velocity2.57m/s [id number] Conclusion LV EF IS 70% NORMAL VALVES NORMAL RV FUNCTION NO EFFUSION
[2024-10-07 10:50] LABS: Chloride 106 mmol/L (98-107); Potassium 3.7 mmol/L (3.5-5.1); Sodium 140 mmol/L (136-145)
[2024-10-07 10:51] LABS: Anion Gap 11 (5-15); Carbon Dioxide 23 mmol/L (20-31)
[2024-10-07 10:56] LABS: BUN/Creatinine Ratio 9.4 (10.0-20.0); Glucose 105 mg/dL (74-106)
[2024-10-07 10:57] LABS: Magnesium 1.9 mg/dL (1.6-2.6)
[2024-10-07 11:04] LABS: Blood Urea Nitrogen 9 mg/dL (9-23)
[2024-10-07 11:05] LABS: Basophils # (auto) 0 10 ^3/uL (0-0.2); Basophils % (auto) 0.2 % (0.0-2.0); Eosinophils # (auto) 0 10 ^3/uL (0-0.8); Eosinophils % (auto) 0.1 % (0.0-7.0); Hematocrit 42.2 % (41.0-53.0); Hemoglobin 13.8 g/dL (13.5-17.5); Lymphocytes # (auto) 1.1 10 ^3/uL (0.4-5.4); Lymphocytes % (auto) 7.8 % (10.0-50.0); Mean Corpuscular Hemoglobin 27.8 pg (28.0-32.0); Mean Corpuscular Hgb Conc. 32.8 g/dL (32.0-36.0); Mean Corpuscular Volume 84.9 fL (80.0-100.0); Monocytes # (auto) 0.7 10 ^3/uL (0-1.3); Monocytes % (auto) 4.5 % (0.0-12.0); Neutrophils # (auto) 12.6 10 ^3/uL (1.6-8.6); Neutrophils % (auto) 87.4 % (37.0-80.0); Platelet Count (auto) 235 10^3/uL (140-450); Red Blood Cells 4.97 10^6/uL (4.5-5.90); Red Cell Distribution Width 18.4 % (11.8-14.3); White Blood Cell 14.4 10^3/uL (4.4-10.8)
[2024-10-07] MEDS: ALPRAZolam 0.5 MG TAB PO PRN (13:18)
--- NOTE | 2024-10-07 19:15 | DVHPN2 ---
Subjective Nausea and vomit Reviewed: Care Plan, H&P, Labs, Medications, Previous Orders, Radiology, Other (Service Provider) Changes from previous H/P or p: No Changes Objective Vitals Vital Signs Date Time Temp Pulse Resp B/P (MAP) Pulse Ox O2 Delivery O2 Flow Rate FiO2 10/07/24 17:00 63 18 145/100 10/07/24 17:00 98.3 99 98.3 10/07/24 08:00 Room Air* 0 21 Intake/Output Intake and Output 10/07/24 07:00 Intake Total 350 ml Output Total 825 ml Balance -475 ml Intake Oral 50 ml IV Total 300 ml Output Urine Total 575 ml Emesis 250 ml General Appearance: Alert, Oriented X3, Cooperative HEENT: Atraumatic Lungs: Clear to auscultation Cardiovascular: Regular rate Abdomen: Other (Some vague abdominal tenderness) Medications Current Medications Medications Dose Ordered Sig/[place] Route Start Time Stop Time Status Last Admin Dose Admin Sodium Chloride 10 ml Q8HR IV 10/05/24 22:00 10/07/24 14:05 10 ML Sodium Chloride 1,000 ml @ 120 mls/hr Q8H20M IV 10/05/24 21:45 10/07/24 13:27 120 MLS/HR Ondansetron HCl 4 mg Q4HP PRN IV 10/05/24 21:45 10/07/24 09:29 4 MG Pantoprazole Sodium 40 mg BID IV 10/05/24 22:00 10/07/24 09:29 40 MG Morphine Sulfate 1 mg Q6HP PRN IV 10/05/24 22:15 10/07/24 16:05 1 MG Ergocalciferol 50,000 unit Q7D PO 10/06/24 10:00 Sucralfate 1 gm TID@0600,1130,2200 PO 10/06/24 11:30 10/07/24 12:59 1 GM Oxycodone HCl 10 mg Q6HP PRN PO 10/06/24 11:15 10/07/24 12:37 10 MG Alprazolam 2 mg Q6HP PRN PO 10/07/24 13:00 10/07/24 13:18 2 MG Laboratory Results Laboratory Tests 10/07/24 10:08 Chemistry Test 10/07/24 10:08 Calcium Level 10.0 mg/dL (8.7-10.4) Magnesium Level 1.9 mg/dL (1.6-2.6) Coagulation Test 10/07/24 10:08 D-Dimer, Quantitative 0.40 mg/L FEU (0.0-0.49) Urinalysis Test 10/05/24 23:24 Urine Color Light-yellow (Yellow) Urine Clarity Clear (Clear) Urine pH 7.0 (5.0-9.0) Urine Specific [place] 1.013 (1.001-1.035) Urine Protein Negative (Negative) Urine Ketones Negative (Negative) Urine Blood Negative /uL (Negative) Urine Nitrite Negative (Negative) Urine Bilirubin Negative (Negative) Urine Urobilinogen Normal mg/dL (Negative) Urine Leukocyte Esterase Negative /uL (Negative) Urine RBC None seen /hpf (0 - 3) Urine Microscopic WBC < 1 /HPF (0-3) Urine Squamous Epithelial Cells None seen /hpf (<5) Urine Bacteria None seen /hpf (None Seen) Urine Mucus Few (None Seen) Urine Glucose Normal mg/dL (Normal) Assessment/Plan Assessment/Plan Nausea and vomiting and hematemesis Questionable syncope Vasovagal reaction Paraganglioma/head and neck and brain cancers Seizures Contrast allergy Chronic pain syndrome Tobacco addiction Vitamin-D deficiency Small lung nodules Plan: Continue current plan of care patient's repeat CBC. Check D-dimer. Further plan per orders Plan discussed with: Patient My Orders Orders - CAMERON NG MD Procedure Category Date Status Time Alprazolam Tablet PHA 10/07/24 In Process (Xanax Tablet) 13:00 Complete Blood Count LAB 10/08/24 Verified 06:00 Date of Service: October 07, 2024 Billing Provider: CAMERON NG MD Common Visit Codes: [id number] INP/OBS CARE(HIGH) CAMERON NG MD October 07, 2024 19:15
--- NOTE | 2024-10-07 20:20 | DVHPN2 ---
Progress Note - Dictate Date Seen: October 07, 2024 Has the PT tested + for MRSA If YES, has PT been informed?: No Medical Necessity Reason Pt with a Central, PICC or Fol: No Subjective Patient was seen and evaluated in follow up. Patient is complaining of nausea and vomiting. WBC 14.4. cho cardiogram shows an EF of 70%. Telemetry reviewed. vital signs Vital Sign Date Time Temp Pulse Resp B/P (MAP) Pulse Ox O2 Delivery O2 Flow Rate FiO2 10/07/24 13:00 98.3 69 18 143/93 (110) 99 98.3 10/07/24 08:00 Room Air* 0 21 Total Intake and Output 10/06/24 10/06/24 10/07/24 15:00 23:00 07:00 Intake Total 300 ml 50 ml 0 ml Output Total 550 ml 275 ml Balance 300 ml -500 ml -275 ml medications Current Medications Medications Dose Ordered Sig/Carolina Route Start Time Stop Time Status Last Admin Dose Admin Sodium Chloride 10 ml Q8HR IV 10/05/24 22:00 10/07/24 14:05 10 ML Sodium Chloride 1,000 ml @ 120 mls/hr Q8H20M IV 10/05/24 21:45 10/07/24 03:24 120 MLS/HR Ondansetron HCl 4 mg Q4HP PRN IV 10/05/24 21:45 10/07/24 09:29 4 MG Pantoprazole Sodium 40 mg BID IV 10/05/24 22:00 10/07/24 09:29 40 MG Morphine Sulfate 1 mg Q6HP PRN IV 10/05/24 22:15 10/07/24 09:30 1 MG Ergocalciferol 50,000 unit Q7D PO 10/06/24 10:00 Sucralfate 1 gm TID@0600,1130,2200 PO 10/06/24 11:30 10/07/24 12:59 1 GM Oxycodone HCl 10 mg Q6HP PRN PO 10/06/24 11:15 10/07/24 12:37 10 MG Alprazolam 2 mg Q6HP PRN PO 10/07/24 13:00 10/07/24 13:18 2 MG objective GENERAL: Alert and oriented x 3. No acute distress. Appears lethargic. EYES: PERRL, EOMI. Anicteric. HENT: Moist mucous membranes. LUNGS: Clear to auscultation bilaterally. CARDIOVASCULAR: Regular rate and rhythm. ABDOMEN: Soft, nontender and nondistended. EXTREMITIES: No edema. NEUROLOGIC: No focal neurological deficits. SKIN: Warm, dry. laboratory and microbiology Laboratory Tests 10/07/24 10:08 Test 10/07/24 10:08 Range/Units Serum Glucose 105 74-106 mg/dL Problem List Syncopal event in the setting of + orthostatic hypotension. Likely vasovagal event secondary N/V. Rule out tachy/jv arrhythmias. Rule out upper GI bleed. Brain tumor stage II. Nicotine dependence. Assessment/Plan Continued all current supportive medical care. GI prophylactics. Morphine and oxycodone for pain management. Additional plan as per the hospital course. Dietary Evaluation Review Recommendations by RD: Protein Supplementation Comments: 1) Initiate Ensure Enlive tid. Encourage optimal PO intake 2) Advance to low-fat diet when medically feasible, pending DIRECTOR OF CONTENT AND PROGRAMMING approval 3) Follow-up with gastroenterology and hematology/oncology 4) Follow-up with social media coordinator regarding polysubstance abuse 5) Continue to monitor I&O, labs, and skin integrity Expected Outcomes/Goals: 1) appetite and labs to improve 2) diet to advance 3) f/u in 3-5 days Plan discussed with: Patient ROMARIO HANNA MD October 07, 2024 15:06
[2024-10-08] VITALS (9 sets, daily range): BP systolic 104–156; BP diastolic 49–100; PULSE 51–77; RESP 16–22; TEMP 97.8–99.1; O2SAT 95–98
[2024-10-08 08:03] LABS: Basophils # (auto) 0 10 ^3/uL (0-0.2); Basophils % (auto) 0.6 % (0.0-2.0); Eosinophils # (auto) 0 10 ^3/uL (0-0.8); Eosinophils % (auto) 0.4 % (0.0-7.0); Hematocrit 47.3 % (41.0-53.0); Hemoglobin 15.7 g/dL (13.5-17.5); Lymphocytes # (auto) 1.5 10 ^3/uL (0.4-5.4); Lymphocytes % (auto) 25.9 % (10.0-50.0); Mean Corpuscular Hemoglobin 28.4 pg (28.0-32.0); Mean Corpuscular Hgb Conc. 33.3 g/dL (32.0-36.0); Mean Corpuscular Volume 85.5 fL (80.0-100.0); Monocytes # (auto) 0.4 10 ^3/uL (0-1.3); Monocytes % (auto) 7.6 % (0.0-12.0); Neutrophils # (auto) 3.7 10 ^3/uL (1.6-8.6); Neutrophils % (auto) 65.5 % (37.0-80.0); Nucleated Red Blood Cells % 0.1 %; Platelet Count (auto) 201 10^3/uL (140-450); Red Blood Cells 5.53 10^6/uL (4.5-5.90); Red Cell Distribution Width 18.3 % (11.8-14.3); White Blood Cell 5.6 10^3/uL (4.4-10.8)
[2024-10-08] MEDS: SUCRALFATE 1 GM/10 ML ORAL SUSP PO SCH (12:00)
--- NOTE | 2024-10-08 14:32 | DVHPNRES ---
Progress Note Date Seen: October 08, 2024 Resident Creating Document: LUIS HERNÁNDEZ RESIDENT Has the PT tested + for MRSA If YES, has PT been informed?: No Medical Necessity Reason Pt with a Central, PICC or Fol: No Subjective Review of Systems Patient seen and examined at the bedside. Patient still reported having pain and vomiting, increased the dose of oxycodone and added Zofran. Objective vital signs Vital Sign Date Time Temp Pulse Resp B/P (MAP) Pulse Ox O2 Delivery O2 Flow Rate FiO2 10/08/24 12:47 98.1 56 16 143/96 (112) 98 98.1 10/08/24 08:00 Room Air* 0 21 Total Intake and Output 10/07/24 10/07/24 10/08/24 15:00 23:00 07:00 Intake Total 480 ml 400 ml 475 ml Output Total 1200 ml 500 ml Balance 480 ml -800 ml -25 ml medications Current Medications Medications Dose Ordered Sig/Carolina Route Start Time Stop Time Status Last Admin Dose Admin Sodium Chloride 10 ml Q8HR IV 10/05/24 22:00 10/08/24 05:37 10 ML Sodium Chloride 1,000 ml @ 120 mls/hr Q8H20M IV 10/05/24 21:45 10/08/24 07:18 120 MLS/HR Pantoprazole Sodium 40 mg BID IV 10/05/24 22:00 10/08/24 09:21 40 MG Morphine Sulfate 1 mg Q6HP PRN IV 10/05/24 22:15 10/08/24 12:33 1 MG Ergocalciferol 50,000 unit Q7D PO 10/06/24 10:00 Alprazolam 2 mg Q6HP PRN PO 10/07/24 13:00 10/08/24 09:21 2 MG Ondansetron HCl 4 mg Q6HPRN PRN IV 10/08/24 09:15 Sucralfate 1 gm QID PO 10/08/24 12:00 10/08/24 12:00 1 GM Oxycodone HCl 15 mg Q4HP PRN PO 10/08/24 13:00 laboratory and microbiology Laboratory Tests 10/08/24 07:29 10/07/24 10:08 Test 10/07/24 10:08 Range/Units Serum Glucose 105 74-106 mg/dL Labs and/or images reviewed: Labs reviewed by me, Image(s) reviewed by me Problem List/Assessment/Plan Problem List/Assessment/Plan # Syncope likely vaso vagal # ruled out arrhythmias/ vasovagal # orthostatic hypotension - telemetry - EKG, sinus rhythm - head CT no acute changes except postoperative dizziness - carotid Doppler showed no significant stenosis - unable to do CT angio head and neck mucous patient is contrast allergy - orthostatic vitals 1 set positive, repeat - cardiology consult -orthostatic vitals with the David stockings # ? upper GI bleed # gastritis - monitored CBC - GI consult, supportive care - Protonix and Carafate - CT abdominal pelvis showed Stomach is decompressed limiting evaluation however question minimal gastric wall thickening. Correlate with clinical exam to exclude an underlying gastritis. # chronic pain syndrome - oxycodone and morphine alternatively as needed # tobacco abuse disorder/ dependence- counseled regarding cessation, consider nicotine patch if needed # Vit D deficiency - Repleting # 2 mm scattered micro nodules of the periphery of bilateral lower lobes.- outpatient follow up with pulmonology # anxiety- alprazolam as needed Protonix SCD Liquid diet Goals of care discussed with the patient for more than 29 minutes: Full code status Case discussed with Dr. Ng, patient and nurse Plan discussed with: Patient My Orders My Orders Orders - LUIS HERNÁNDEZ RESIDENT Procedure Category Date Status Time Ondansetron Hcl PHA 10/08/24 In Process (Zofran) 09:15 Oxycodone Immediate PHA 10/08/24 In Process Rel Tablet 13:00 Dietary Evaluation Review Recommendations by RD: Protein Supplementation Comments: 1) Initiate Ensure Enlive tid. Encourage optimal PO intake 2) Advance to low-fat diet when medically feasible, pending EIGHT SECTION BLOWER approval 3) Follow-up with gastroenterology and hematology/oncology 4) Follow-up with high school social studies tutor regarding polysubstance abuse 5) Continue to monitor I&O, labs, and skin integrity Expected Outcomes/Goals: 1) appetite and labs to improve 2) diet to advance 3) f/u in 3-5 days Date of Service: October 08, 2024 Billing Provider: CAMERON NG MD Common Visit Codes: [id number] INP/OBS CARE(HIGH) LUIS HERNÁNDEZ RESIDENT October 08, 2024 14:32 CAMERON NG MD October 08, 2024 23:10
--- NOTE | 2024-10-08 15:00 | DVHPN2 ---
Progress Note - Dictate Date Seen: October 08, 2024 Has the PT tested + for MRSA If YES, has PT been informed?: No Medical Necessity Reason Pt with a Central, PICC or Fol: No Subjective Patient was seen and evaluated in follow up. Patient is complaining of poor appetite, N/V and a headache. CBC is unremarkable. Telemetry reviewed. vital signs Vital Sign Date Time Temp Pulse Resp B/P (MAP) Pulse Ox O2 Delivery O2 Flow Rate FiO2 10/08/24 12:47 98.1 56 16 143/96 (112) 98 98.1 10/08/24 08:00 Room Air* 0 21 Total Intake and Output 10/07/24 10/07/24 10/08/24 15:00 23:00 07:00 Intake Total 480 ml 400 ml 475 ml Output Total 1200 ml 500 ml Balance 480 ml -800 ml -25 ml medications Current Medications Medications Dose Ordered Sig/[place] Route Start Time Stop Time Status Last Admin Dose Admin Sodium Chloride 10 ml Q8HR IV 10/05/24 22:00 10/08/24 05:37 10 ML Sodium Chloride 1,000 ml @ 120 mls/hr Q8H20M IV 10/05/24 21:45 10/08/24 07:18 120 MLS/HR Pantoprazole Sodium 40 mg BID IV 10/05/24 22:00 10/08/24 09:21 40 MG Morphine Sulfate 1 mg Q6HP PRN IV 10/05/24 22:15 10/08/24 12:33 1 MG Ergocalciferol 50,000 unit Q7D PO 10/06/24 10:00 Alprazolam 2 mg Q6HP PRN PO 10/07/24 13:00 10/08/24 09:21 2 MG Ondansetron HCl 4 mg Q6HPRN PRN IV 10/08/24 09:15 Sucralfate 1 gm QID PO 10/08/24 12:00 10/08/24 12:00 1 GM Oxycodone HCl 15 mg Q4HP PRN PO 10/08/24 13:00 objective GENERAL: Alert and oriented x 3. No acute distress. Appears lethargic. EYES: PERRL, EOMI. Anicteric. HENT: Moist mucous membranes. LUNGS: Clear to auscultation bilaterally. CARDIOVASCULAR: Regular rate and rhythm. ABDOMEN: Soft, nontender and nondistended. EXTREMITIES: No edema. NEUROLOGIC: No focal neurological deficits. SKIN: Warm, dry. laboratory and microbiology Laboratory Tests 10/08/24 07:29 10/07/24 10:08 Test 10/07/24 10:08 Range/Units Serum Glucose 105 74-106 mg/dL Problem List Syncopal event in the setting of + orthostatic hypotension. Likely vasovagal event secondary N/V. Rule out tachy/jv arrhythmias. Rule out upper GI bleed. Brain tumor stage II. Nicotine dependence. Assessment/Plan Continued all current supportive medical care. Zofran. GI prophylactics. Morphine and Oxycodone for pain management. Additional plan as per the hospital course. Dietary Evaluation Review Recommendations by RD: Protein Supplementation Comments: 1) Initiate Ensure Enlive tid. Encourage optimal PO intake 2) Advance to low-fat diet when medically feasible, pending CONCILIATION COURT JUDGE approval 3) Follow-up with gastroenterology and hematology/oncology 4) Follow-up with manager social work regarding polysubstance abuse 5) Continue to monitor I&O, labs, and skin integrity Expected Outcomes/Goals: 1) appetite and labs to improve 2) diet to advance 3) f/u in 3-5 days Plan discussed with: Patient ROMARIO HANNA MD October 08, 2024 13:19
[2024-10-08] MEDS: ONDANSETRON HCL 4 MG/2 ML VIAL IV PRN (15:27)
[2024-10-08] MEDS: oxyCODONE HCL 5MG TAB PO PRN (15:28)
--- NOTE | 2024-10-08 21:53 | DVHPN2 ---
Progress Note - Dictate Date Seen: October 08, 2024 Has the PT tested + for MRSA If YES, has PT been informed?: No Medical Necessity Reason Pt with a Central, PICC or Fol: No Subjective Patient is known to me from multiple previous hospitalizations in this hospital and also at [facility] He has had multiple endoscopies in the past with most showing chronic GERD and esophagitis Patient was still having some symptoms of nausea and vomiting but was willing to try full liquid diet Last EGD here in 08/08 Operative Report DATE OF OPERATION: 08/08/24 PROCEDURE: Upper Endoscopy with biopsy. PREOPERATIVE INDICATION: The patient is a 33 -year-old male undergoing endoscopy for epigastric pain and upper GI bleed POSTOPERATIVE DIAGNOSES: 1. 3-4 cm sliding-type hiatal hernia with grade B linear erosive esophagitis 2. Mild gastritis otherwise normal examination up to the 2nd and 3rd part of the duodenum 3. Otherwise normal examination of the 2nd and 3rd part of the duodenum with no fresh or old blood in the GI tract at this time Pathology Benign duodenal mucosa. Mild chronic inactive gastritis. No Helicobacter pylori organism seen vital signs Vital Sign Date Time Temp Pulse Resp B/P (MAP) Pulse Ox O2 Delivery O2 Flow Rate FiO2 10/08/24 21:21 56 18 137/94 10/08/24 17:00 99.1 97 99.1 10/08/24 08:00 Room Air* 0 21 Total Intake and Output 10/07/24 10/07/24 10/08/24 15:00 23:00 07:00 Intake Total 480 ml 400 ml 475 ml Output Total 1200 ml 500 ml Balance 480 ml -800 ml -25 ml medications Current Medications Medications Dose Ordered Sig/Carolina Route Start Time Stop Time Status Last Admin Dose Admin Sodium Chloride 10 ml Q8HR IV 10/05/24 22:00 10/08/24 21:21 10 ML Sodium Chloride 1,000 ml @ 120 mls/hr Q8H20M IV 10/05/24 21:45 10/08/24 21:29 120 MLS/HR Pantoprazole Sodium 40 mg BID IV 10/05/24 22:00 10/08/24 21:15 40 MG Morphine Sulfate 1 mg Q6HP PRN IV 10/05/24 22:15 10/08/24 21:21 1 MG Ergocalciferol 50,000 unit Q7D PO 10/06/24 10:00 Alprazolam 2 mg Q6HP PRN PO 10/07/24 13:00 10/08/24 21:28 2 MG Ondansetron HCl 4 mg Q6HPRN PRN IV 10/08/24 09:15 10/08/24 21:29 4 MG Sucralfate 1 gm QID PO 10/08/24 12:00 10/08/24 21:15 1 GM Oxycodone HCl 15 mg Q4HP PRN PO 10/08/24 13:00 10/08/24 15:28 15 MG objective Physical exam: General: NAD, AAOX3 Chest: lung sandoval clear to auscultation Heart: RRR, no murmur Abdomen: + tenderness to palpation, +BS laboratory and microbiology Laboratory Tests 10/08/24 07:29 10/07/24 10:08 Test 10/07/24 10:08 Range/Units Serum Glucose 105 74-106 mg/dL Problems(with codes): (1) Hiatal hernia with gastroesophageal reflux disease and esophagitis (2) Nausea and vomiting (3) Hematemesis (4) Atypical chest pain (5) Intractable vomiting (6) Brain cancer Prognosis Plan Protonix 40 mg IV q.12 hours Carafate suspension 1 g p.o. 4 times a day Zofran 4 mg IV q.4-6 hours as needed Full liquid diet and advance as tolerated Continue supportive care cut back on narcotics ;avoid alcohol Patient also has a history of narcotic-seeking behavior and chronic pain syndrome Dietary Evaluation Review Recommendations by RD: Protein Supplementation Comments: 1) Initiate Ensure Enlive tid. Encourage optimal PO intake 2) Advance to low-fat diet when medically feasible, pending MEDICAL RECORD LIBRARIANS TEACHER approval 3) Follow-up with gastroenterology and hematology/oncology 4) Follow-up with social media marketing specialist regarding polysubstance abuse 5) Continue to monitor I&O, labs, and skin integrity Expected Outcomes/Goals: 1) appetite and labs to improve 2) diet to advance 3) f/u in 3-5 days Plan discussed with: Patient, Other (Nurse) YOLY GIL MD October 08, 2024 21:53
[2024-10-09 01:00] VITALS: BP_SYST 122; BP_SYST 9; BP_DIAS 83; PULSE 53; RESP 19; TEMP 97.7; O2SAT 95
[2024-10-09 05:00] VITALS: BP 110/72; PULSE 59; RESP 19; TEMP 97.6; O2SAT 96
[2024-10-09 07:30] LABS: Anion Gap 11 (5-15); Calcium 9.8 mg/dL (8.7-10.4); Chloride 105 mmol/L (98-107); Potassium 4.1 mmol/L (3.5-5.1); Sodium 136 mmol/L (136-145)
[2024-10-09 07:36] LABS: Glucose 94 mg/dL (74-106)
[2024-10-09 07:40] LABS: BUN/Creatinine Ratio 4.5 (10.0-20.0); Blood Urea Nitrogen < 5 mg/dL (9-23); Carbon Dioxide 20 mmol/L (20-31)
[2024-10-09 08:00] VITALS: PULSE 46
[2024-10-09 08:42] VITALS: BP_SYST 118; BP_SYST 123; BP_DIAS 88; PULSE 51; PULSE 66; RESP 16; TEMP 97.9; O2SAT 95
[2024-10-09 08:43] VITALS: BP 100/62; PULSE 60
[2024-10-09 10:25] LABS: Basophils # (auto) 0 10 ^3/uL (0-0.2); Basophils % (auto) 1.1 % (0.0-2.0); Eosinophils # (auto) 0.1 10 ^3/uL (0-0.8); Eosinophils % (auto) 1.3 % (0.0-7.0); Hematocrit 44.8 % (41.0-53.0); Hemoglobin 14.6 g/dL (13.5-17.5); Lymphocytes # (auto) 1.5 10 ^3/uL (0.4-5.4); Lymphocytes % (auto) 32.2 % (10.0-50.0); Mean Corpuscular Hemoglobin 28.2 pg (28.0-32.0); Mean Corpuscular Hgb Conc. 32.6 g/dL (32.0-36.0); Mean Corpuscular Volume 86.3 fL (80.0-100.0); Monocytes # (auto) 0.6 10 ^3/uL (0-1.3); Neutrophils # (auto) 2.3 10 ^3/uL (1.6-8.6); Neutrophils % (auto) 51.4 % (37.0-80.0); Nucleated Red Blood Cells % 0.2 %; Platelet Count (auto) 188 10^3/uL (140-450); Red Blood Cells 5.19 10^6/uL (4.5-5.90); Red Cell Distribution Width 17.7 % (11.8-14.3); White Blood Cell 4.5 10^3/uL (4.4-10.8)
[2024-10-09] MEDS ORDERED: SUCR1SUS26 PO (12:47)
[2024-10-09 12:55] VITALS: BP 116/83; PULSE 55; RESP 18; TEMP 98.1; O2SAT 95
--- NOTE | 2024-10-09 14:56 | DVHDSRES ---
Discharge Summary Date of Admission Resident Creating Document: LUIS HERNÁNDEZ RESIDENT October 05, 2024 at 21:40 Date of Discharge: October 09, 2024 Admitting Diagnosis syncope and hematemesis Labs/Diagnostic Data: Laboratory Results Test 10/09/24 10:05 10/09/24 05:48 10/07/24 10:08 10/06/24 05:17 White Blood Count 4.5 10^3/uL (4.4-10.8) Red Blood Count 5.19 10^6/uL (4.5-5.90) Hemoglobin 14.6 g/dL (13.5-17.5) Hematocrit 44.8 % (41.0-53.0) Mean Corpuscular Volume 86.3 fL (80.0-100.0) Mean Corpuscular Hemoglobin 28.2 pg (28.0-32.0) Mean Corpuscular Hemoglobin Concent 32.6 g/dL (32.0-36.0) Red Cell Distribution Width 17.7 % (11.8-14.3) Platelet Count 188 10^3/uL (140-450) Mean Platelet Volume 9.6 fL (6.9-10.8) Neutrophils (%) (Auto) 51.4 % (37.0-80.0) Lymphocytes (%) (Auto) 32.2 % (10.0-50.0) Monocytes (%) (Auto) 14.0 % (0.0-12.0) Eosinophils (%) (Auto) 1.3 % (0.0-7.0) Basophils (%) (Auto) 1.1 % (0.0-2.0) Neutrophils # (Auto) 2.3 10 ^3/uL (1.6-8.6) Lymphocytes # (Auto) 1.5 10 ^3/uL (0.4-5.4) Monocytes # (Auto) 0.6 10 ^3/uL (0-1.3) Eosinophils # (Auto) 0.1 10 ^3/uL (0-0.8) Basophils # (Auto) 0 10 ^3/uL (0-0.2) Nucleated Red Blood Cells 0.2 % Sodium Level 136 mmol/L (136-145) Potassium Level 4.1 mmol/L (3.5-5.1) Chloride Level 105 mmol/L (98-107) Carbon Dioxide Level 20 mmol/L (20-31) Anion Gap 11 (5-15) Blood Urea Nitrogen < 5 mg/dL (9-23) Creatinine 1.10 mg/dL (0.700-1.30) Glomerular Filtration Rate Calc 90 mL/min (>90) BUN/Creatinine Ratio 4.5 (10.0-20.0) Serum Glucose 94 mg/dL (74-106) Calcium Level 9.8 mg/dL (8.7-10.4) D-Dimer, Quantitative 0.40 mg/L FEU (0.0-0.49) Magnesium Level 1.9 mg/dL (1.6-2.6) Total Bilirubin 0.6 mg/dL (0.2-1.0) Aspartate Amino Transferase (AST) 13 U/L (13-40) Alanine Aminotransferase (ALT) 10 U/L (7-40) Alkaline Phosphatase 87 U/L (46-116) Total Protein 7.8 g/dL (5.7-8.2) Albumin 4.7 g/dL (3.2-4.8) Test 10/05/24 23:24 10/05/24 23:10 10/05/24 17:40 Urine Color Light-yellow (Yellow) Urine Clarity Clear (Clear) Urine pH 7.0 (5.0-9.0) Urine Specific [place] 1.013 (1.001-1.035) Urine Protein Negative (Negative) Urine Ketones Negative (Negative) Urine Blood Negative /uL (Negative) Urine Nitrite Negative (Negative) Urine Bilirubin Negative (Negative) Urine Urobilinogen Normal mg/dL (Negative) Urine Leukocyte Esterase Negative /uL (Negative) Urine RBC None seen /hpf (0 - 3) Urine Microscopic WBC < 1 /HPF (0-3) Urine Squamous Epithelial Cells None seen /hpf (<5) Urine Bacteria None seen /hpf (None Seen) Urine Mucus Few (None Seen) Urine Glucose Normal mg/dL (Normal) Urine Opiates Screen Neg (NEGATIVE) Urine Fentanyl Screen Pos (NEGATIVE) Urine Barbiturates Screen Neg (NEGATIVE) Urine Phencyclidine Screen Neg (NEGATIVE) Urine Amphetamines Screen Neg (NEGATIVE) Urine Benzodiazepines Screen Pos (NEGATIVE) Urine Cocaine Screen Neg (NEGATIVE) Urine Cannabinoids Screen Neg (NEGATIVE) Vitamin B12 Level 522 pg/mL (211-911) Folic Acid 5.82 ng/mL (>5.38) Thyroid Stimulating Hormone (TSH) 0.87 uIU/mL (0.55-4.78) Reticulocyte Count (auto) 0.49 % (0.5-1.5) Lactic Acid Level 1.5 mmol/L (0.4-2.0) Lipase 40 U/L (12-53) Vitamin D 25-Hydroxy 17.6 ng/mL (30.0-100) Plasma/Serum Blood Alcohol 3.9 mg/dL (<10) Other Laboratory Tests 10/09/24 10:05 10/09/24 05:48 Brief Hx & Hospital Course: Mr. Sukhdeep Armas III, a 34-year-old male with a history of anxiety, chronic pain syndrome, and prior head, neck, and brain carcinoma status post craniectomy, was admitted with complaints of syncope and hematemesis. His syncopal episode was likely vasovagal in nature, with orthostatic hypotension also considered. Cardiac evaluation included telemetry monitoring and an EKG showing sinus rhythm. A head CT revealed no acute changes aside from postoperative findings. Carotid Doppler showed no significant stenosis. CT angiography of the head and neck could not be performed due to a contrast allergy. Orthostatic vitals were initially positive, with improvement noted upon repeat testing using JORDAN stockings. Cardiology consultation recommended continued fluid replacement, use of compression stockings, and outpatient event monitoring if needed. Echocardiogram showed a normal left ventricular ejection fraction of 70%, and no further cardiac workup was deemed necessary. The patient was also evaluated for upper gastrointestinal bleeding and hematemesis, with findings consistent with gastritis, hiatal hernia, GERD, and esophagitis. A GI consult recommended treatment with IV Protonix 40 mg every 12 hours, Carafate suspension 1 g orally four times daily, and Zofran as needed. The patients diet was advanced as tolerated, and supportive care was continued with a reduction in narcotic use and avoidance of alcohol. Abdominal and pelvic CT imaging showed a decompressed stomach with questionable minimal gastric wall thickening, suggestive of possible gastritis. Chronic pain syndrome was managed with alternating doses of oxycodone and morphine as needed. The patient was counseled on tobacco use disorder and advised on cessation strategies, including consideration of nicotine patches. Vitamin D deficiency was addressed with supplementation. Imaging also revealed 2 mm scattered micronodules in the periphery of the bilateral lower lobes, for which outpatient pulmonology follow-up was recommended. Anxiety was managed with alprazolam as needed. At the time of discharge, the patients condition had improved significantly. He was hemodynamically stable and deemed fit for discharge home with optimal medical therapy. He was advised to resume his home medications and follow up with his oncologist and sales specialist at [facility]. Pt is lying on bed General Appearance: Alert, Oriented X3, Cooperative, Not in acute distress HEENT: Atraumatic, Mucous membranes moist/pink Respiratory: Clear to auscultation, Normal air movement, No added sounds Cardiovascular: Regular rate, Normal S1, Normal S2, No murmurs Abdominal: Active bowel sounds, Soft, no distention, no tenderness Extremities: No edema, Normal pulses, No tenderness/swelling Skin: No Significant rash, except past surgical scars Neuro: Normal speech, sensorimotor deficits none Psych/Mental Status: Mental status NL, Mood NL Nurse was there as sharperone during examination Operations or Procedures CT abdominal pelvis showed Stomach is decompressed limiting evaluation however question minimal gastric wall thickening. Correlate with clinical exam to exclude an underlying gastritis. -- Carotid Doppler: No evidence of hemodynamically significant stenosis in the carotid arteries. -- Head CT: 1. No acute intracranial process. 2. Postoperative changes of left mastoid and temporal bone with numerous adjacent metallic densities noted. -- ECHO Conclusion LV EF IS 70% NORMAL VALVES NORMAL RV FUNCTION NO EFFUSION Condition at Discharge: Stable Final Diagnosis/Problems List # Syncope likely vaso vagal # Ruled out arrhythmias/ vasovagal # Orthostatic hypotension # Upper GI bleed/ Hematemesis # Gastritis # Hiatal hernia with gastroesophageal reflux disease and esophagitis # chronic pain syndrome # tobacco abuse disorder/ dependence # Vit D deficiency # 2 mm scattered micro nodules of the periphery of bilateral lower lobes # anxiety- alprazolam as needed Discharge Disposition: Home Discharge Instruct/Medications Diet: Consistent carbohydrate, Cardiac 2g Na,low cholest Activity: No Restrictions, As Tolerated Follow Up/Referral: PCP and oncology and sales specialist at [facility] Medications: carafate 10 ml 3 times daily for 30 days Resume home meds Discharge Statement: "Patient was advised to return to the ER or call 911 if any headaches, dizziness, shortness of breath, chest pain, abdominal pain, bleeding, fevers, or worsening of medical condition. Patient was counseled about treatment plan, medications, possible side effects, patientverbalized understanding. All questions were answered to the best of my ability. This discharge took greater then 30 minutes in planning, reviewing documentation, counseling the patient, and discussing with other team members." ASSESSMENT ASSESSMENT Assessment Syncope likely Vasovagal Date of Service: October 09, 2024 Billing Provider: BAUDILIO DAVENPORT MD Common Visit Codes: 89922-ONN/OBS DISCH DAY >30min LUIS HERNÁNDEZ RESIDENT October 09, 2024 14:56 BAUDILIO DAVENPORT MD October 09, 2024 21:21
--- NOTE | 2024-10-09 20:16 | DVHPN2 ---
Progress Note - Dictate Date Seen: October 09, 2024 (Late entry Patient seen at 11:00 a.m.) Has the PT tested + for MRSA If YES, has PT been informed?: No Medical Necessity Reason Pt with a Central, PICC or Fol: No Subjective Patient seen at bedside Patient was ambulatory and also was ambulating in the hallway He states his upper GI symptoms were better and he was able to tolerate the diet once he was able to get Carafate vital signs Vital Sign Date Time Temp Pulse Resp B/P (MAP) Pulse Ox O2 Delivery O2 Flow Rate FiO2 10/09/24 12:55 98.1 55 18 116/83 (94) 95 98.1 10/09/24 08:00 Room Air* 0 21 Total Intake and Output 10/08/24 10/08/24 10/09/24 15:00 23:00 07:00 Intake Total 1240 ml 120 ml Output Total 1000 ml 500 ml Balance 1240 ml -1000 ml -380 ml objective Physical exam: General: NAD, AAOX3 Chest: lung sandoval clear to auscultation Heart: RRR, no murmur Abdomen: + tenderness to palpation, +BS laboratory and microbiology Laboratory Tests 10/09/24 10:05 10/09/24 05:48 Test 10/09/24 05:48 Range/Units Serum Glucose 94 74-106 mg/dL Problems(with codes): (1) Hiatal hernia with gastroesophageal reflux disease and esophagitis (2) Intractable vomiting (3) Atypical chest pain (4) Nausea and vomiting (5) UGI bleed Prognosis Plan Advance diet as tolerated Discharge planning in progress Continue Protonix 40 mg p.o. twice a day Carafate 1 g p.o. twice a day DC aspirin NSAIDs smoking alcohol Outpatient follow up with me in 4-6 weeks to review results and discuss further management Dietary Evaluation Review Recommendations by RD: Protein Supplementation Comments: 1) Initiate Ensure Enlive tid. Encourage optimal PO intake 2) Advance to low-fat diet when medically feasible, pending ANALYSIS SPECIALIST approval 3) Follow-up with gastroenterology and hematology/oncology 4) Follow-up with social worker psychiatric regarding polysubstance abuse 5) Continue to monitor I&O, labs, and skin integrity Expected Outcomes/Goals: 1) appetite and labs to improve 2) diet to advance 3) f/u in 3-5 days Plan discussed with: Patient YOLY GIL MD October 09, 2024 20:16
--- NOTE | 2024-10-09 23:46 | DVHPN2 ---
Progress Note - Dictate Date Seen: October 09, 2024 Has the PT tested + for MRSA If YES, has PT been informed?: No Medical Necessity Reason Pt with a Central, PICC or Fol: No Subjective Patient was seen and evaluated in follow up. Patient has no new complaints at this time. Patient denies any cardiac symptoms. Patient is cardiac stable for discharge. Telemetry reviewed. vital signs Vital Sign Date Time Temp Pulse Resp B/P (MAP) Pulse Ox O2 Delivery O2 Flow Rate FiO2 10/09/24 12:55 98.1 55 18 116/83 (94) 95 98.1 10/09/24 08:00 Room Air* 0 21 Total Intake and Output 10/08/24 10/08/24 10/09/24 15:00 23:00 07:00 Intake Total 1240 ml 120 ml Output Total 1000 ml 500 ml Balance 1240 ml -1000 ml -380 ml objective GENERAL: Alert and oriented x 3. No acute distress. Appears lethargic. EYES: PERRL, EOMI. Anicteric. HENT: Moist mucous membranes. LUNGS: Clear to auscultation bilaterally. CARDIOVASCULAR: Regular rate and rhythm. ABDOMEN: Soft, nontender and nondistended. EXTREMITIES: No edema. NEUROLOGIC: No focal neurological deficits. SKIN: Warm, dry. laboratory and microbiology Laboratory Tests 10/09/24 10:05 10/09/24 05:48 Test 10/09/24 05:48 Range/Units Serum Glucose 94 74-106 mg/dL Problem List Syncopal event in the setting of + orthostatic hypotension. Likely vasovagal event secondary N/V. Rule out tachy/jv arrhythmias. Rule out upper GI bleed. Brain tumor stage II. Nicotine dependence. Assessment/Plan Continued all current supportive medical care. Zofran. GI prophylactics. Morphine and Oxycodone for pain management. Additional plan as per the hospital course. Dietary Evaluation Review Recommendations by RD: Protein Supplementation Comments: 1) Initiate Ensure Enlive tid. Encourage optimal PO intake 2) Advance to low-fat diet when medically feasible, pending EQUAL OPPORTUNITY DIRECTOR approval 3) Follow-up with gastroenterology and hematology/oncology 4) Follow-up with administrator social welfare regarding polysubstance abuse 5) Continue to monitor I&O, labs, and skin integrity Expected Outcomes/Goals: 1) appetite and labs to improve 2) diet to advance 3) f/u in 3-5 days Plan discussed with: Patient ROMARIO HANNA MD October 09, 2024 23:46
== END 2024-10-09 16:00 | disposition home or self-care (01) | DRG 368 ==
LOC: EDBD 16:45 → ER 16:45 → OVERFLOW 21:40 → TELE-CENTR 23:42
PROVIDERS: ADMIT Student in an Organized Health Care Education/Training Program; ATTEND Student in an Organized Health Care Education/Training Program
DX: K21.01 Gastro-esophageal reflux disease with esophagitis, with bleeding (principal); K29.71 Gastritis, unspecified, with bleeding; D49.6 Neoplasm of unspecified behavior of brain; E55.9 Vitamin D deficiency, unspecified; G89.4 Chronic pain syndrome; I95.1 Orthostatic hypotension; F41.9 Anxiety disorder, unspecified; K44.9 Diaphragmatic hernia without obstruction or gangrene; R56.9 Unspecified convulsions; F17.210 Nicotine dependence, cigarettes, uncomplicated; Z85.841 Personal history of malignant neoplasm of brain; Z88.6 Allergy status to analgesic agent; Z91.041 Radiographic dye allergy status; Z79.899 Other long term (current) drug therapy
CPT/HCPCS: 36415; 70450; 74176; 80048; 80053; 80307; 80320; 81001; 82306; 82607; 82746; 83605; 83690; 83735; 84443; 85025; 85045; 85379; 86850; 86900; 86901; 93005; 93306; 93886; 96361; 96374; 96375; G0378; J2405; J2470

== ENCOUNTER 2024-12-04 08:15 | Emergency (ER) | payer OTHER, MEDICAID ==
[~2024-12-04] VITALS: Ht 175.3 cm; Wt 70.4 kg
[~2024-12-04 08:15] MED LIST changes: +SUCR1SUS26 PO
[2024-12-04 08:18] VITALS: BP 136/74; PULSE 84; RESP 18; TEMP 98.2; O2SAT 99
--- NOTE | 2024-12-04 08:53 | ED.PDOC ---
GI ASSESSMENT HPI Comments 34 y/o M, EVELYNE, with PMHx of cancer and seizures presents to the ED for CC of nausea/vomiting. EMS reports, patient is coming from home where he complains of nausea, vomiting, and diarrhea x1day. Patient relays, associated symptoms of abdominal pain with a headache. Patient comments, that he was seen approximately x2-3months ago at [facility] for same symptoms. Patient denies fever, chills, sweats, melena, or hematochezia. No other associated symptoms, modifiers, recent injuries or sick contacts present at this time. Chief Complaint: Nausea/Vomiting Time Seen by MD: 08:15 Primary Care Provider: SOPHIA Reviewed Notes: Nurses Notes, Water Pump Installer Notes, Medications, Allergies Allergies: Coded Allergies: Acetaminophen (Verified Allergy, Unknown, 09/02/21) Diphenhydramine (Verified Allergy, Unknown, 09/02/21) Metoclopramide (Verified Allergy, Unknown, 07/16/24) Prochlorperazine (Verified Allergy, Unknown, 07/16/24) Uncoded Allergies: BLEACH (Allergy, Unknown, 09/02/21) MRI CONTRAST (Allergy, Unknown, 09/02/21) Home Meds Active Scripts Sucralfate (CARAFATE SUSP) 1 Gm/10 Ml Ss, 10 ML PO TID for 30 Days, #900 ML 1 Refill Prov:LUIS HERNÁNDEZ RESIDENT 10/09/24 Famotidine (PEPCID TABLET) 20 Mg Tb, 1 TAB PO BID for 60 Days, #120 TAB 5 Refills Prov:SERJIO SWO MD 09/10/24 Ondansetron HCl (Ondansetron Hydrochloride) 8 Mg Tab, 8 MG PO Q6HP PRN, #60 TAB Prov:SERJIO SOW MD 09/10/24 Reported Medications Promethazine HCl (Promethazine HCl) 6.25 Mg/5 Ml Syp, 20 ML PO QID PRN for NAUSEA / VOMITING 07/16/24 Pregabalin (Pregabalin) 75 Mg Cap, 1 CAP PO BID 07/16/24 Oxycodone HCl (Oxycodone Hydrochloride) 30 Mg Tab, 1 TAB PO Q4HPRN PRN for PAIN SCALE 1 THRU 6 11/10/23 Alprazolam (Alprazolam) 2 Mg Tab, 1 TAB PO TID PRN for ANXIETY 11/10/23 Pantoprazole Sodium Sesquihydr (Pantoprazole Sodium) 40 Mg Tab, 1 TAB PO BID 11/10/23 Information Source: Patient, Emergency Med Personnel Mode of Arrival: EMS Timing: Days Duration: Since onset Prehospital treatment: None Quality: None Vomitus: Watery Stool: Normal Severity: Moderate Recent: None Recent Hx of: None Pain Location: Diffuse Modifying Factors: Nothing Associated sign and symptoms: Nausea, Vomiting, Abdominal Pain Past Medical History PAST MEDICAL HISTORY: Cancer, Seizures Surgical History: Denies all surgeries Family History Family History: Reviewed,noncontributory to illness Social History Smoker: Cigarettes Alcohol: Denies ETOH Use Drugs: Denies Drug Use Lives In: Home Constitutional: denies: chills, diaphoresis, fatigue, fever, malaise, sweats, weakness, others EENTM: denies: blurred vision, double vision, ear bleeding, ear discharge, ear drainage, ear pain, ear ringing, eye pain, eye redness, hearing loss, mouth pain, mouth swelling, nasal discharge, nose bleeding, nose congestion, nose pain, photophobia, tearing, throat pain, throat swelling, voice changes, others Respiratory: denies: cough, hemoptysis, orthopnea, SOB at rest, shortness of breath, SOB with excertion, stridor, wheezing, others Cardiovascular: denies: chest pain, dizzy spells, diaphoresis, Dyspnea on exertion, edema, irregular heart beat, left arm pain, lightheadedness, palpitations, PND, syncope, others Gastrointestinal: reports: abdominal pain, diarrhea, nausea, vomiting; denies: abdomen distended, blood streaked bowels, constipated, dysphagia, difficulty swallowing, hematemesis, melena, poor appetite, poor fluid intake, rectal bleeding, rectal pain, others Genitourinary: denies: burning, dysuria, flank pain, frequency, hematuria, incontinence, penile discharge, penile sore, pain, testicle pain, testicle swelling, urgency, others Neurological: reports: headache; denies: dizziness, fainting, left sided numbness, left sided weakness, numbness, paresthesia, pre-existing deficit, right sided numbness, right sided weakness, seizure, speech problems, tingling, tremors, weakness, others Musculoskeletal: denies: back pain, gout, joint pain, joint swelling, muscle pain, muscle stiffness, neck pain, others Integumetry: denies: bruises, change in color, change in hair/nails, dryness, laceration, lesions, lumps, rash, wounds, others Allergic/Immunocompromised: denies: Difficulty Healing, Frequent Infections, Hives, Itching, others Hematologic/Lymphatic: denies: anemia, blood clots, easy bleeding, easy bruising, swollen glands, others Endocrine: denies: excessive hunger, excessive sweating, excessive thirst, excessive urination, flushing, intolerance to cold, intolerance to heat, unexplained weight gain, unexplained weight loss, others Psychiatric: denies: anxiety, bipolar disorder, depression, hopeless, panic disorder, schizophrenia, sleepless, suicidal, others All Other Systems: Reviewed and Negative Physical Exam General Appearance: Moderate Distress HEENT: Normal ENT Inspection, Pharynx Normal, TMs Normal Neck: Full Range of Motion, Non-Tender, Normal, Normal Inspection Respiratory: Chest Non-Tender, Lungs Clear, No Accessory Muscle Use, No Respiratory Distress, Normal Breath Sounds Cardiovascular: No Edema, No JVD, No Murmur, No Gallop, Normal Peripheral Pulses, Regular Rate/Rhythm Breast Exam: Deferred Gastrointestinal: No Organomegaly, Non Tender, No Pulsatile Mass, Normal Bowel Sounds, Soft Genitalia: Deferred Pelvic: Deferred Rectal: Deferred Extremities: No calf tenderness, Normal capillary refill, Normal inspection, Normal range of motion, Non-tender, No pedal edema Musculoskeletal : Apperance: Normal Neurologic: Alert, bridal sales consultant II-XII nml as Tested, No Motor Deficits, Normal Affect, Normal Mood, No Sensory Deficits Cerebellar Function: NOT DONE Reflexes: NOT DONE Skin: Dry, Normal Color, Warm Peripheral Pulses: 3+ Radial (R), 3+ Radial (L) Lymphatic: No Adenopathy Was a procedure done? Was a procedure done?: No GI differential Dx Differential Diagnosis: Constipation, Diverticular disease, Esophagitis, Gastritis/PUD, Gastroenteritis, Inflammatory BD, Electrolyte Imbalance, Food Poisoning, Bacterial, Viral X-Ray, Labs, Meds, VS Vital Signs Date Time Temp Pulse Resp B/P (MAP) Pulse Ox O2 Delivery O2 Flow Rate FiO2 12/04/24 08:18 98.2 84 18 136/74 (94) 99 98.2 Lab Test 7/21/25 09:29 Range/Units White Blood Count 13.3 H 4.4-10.8 10^3/uL Red Blood Count 5.72 4.5-5.90 10^6/uL Hemoglobin 16.0 13.5-17.5 g/dL Hematocrit 49.4 41.0-53.0 % Mean Corpuscular Volume 86.4 80.0-100.0 fL Mean Corpuscular Hemoglobin 28.0 28.0-32.0 pg Mean Corpuscular Hemoglobin Concent 32.4 32.0-36.0 g/dL Red Cell Distribution Width 16.5 H 11.8-14.3 % Platelet Count 264 140-450 10^3/uL Mean Platelet Volume 9.8 6.9-10.8 fL Neutrophils (%) (Auto) 90.0 H 37.0-80.0 % Lymphocytes (%) (Auto) 5.6 L 10.0-50.0 % Monocytes (%) (Auto) 4.1 0.0-12.0 % Eosinophils (%) (Auto) 0.1 0.0-7.0 % Basophils (%) (Auto) 0.2 0.0-2.0 % Neutrophils # (Auto) 12.0 H 1.6-8.6 10 ^3/uL Lymphocytes # (Auto) 0.8 0.4-5.4 10 ^3/uL Monocytes # (Auto) 0.6 0-1.3 10 ^3/uL Eosinophils # (Auto) 0 0-0.8 10 ^3/uL Basophils # (Auto) 0 0-0.2 10 ^3/uL Nucleated Red Blood Cells 0.1 % Sodium Level 140 136-145 mmol/L Potassium Level 4.4 3.5-5.1 mmol/L Chloride Level 103 98-107 mmol/L Carbon Dioxide Level 23 20-31 mmol/L Anion Gap 14 5-15 Blood Urea Nitrogen 11 9-23 mg/dL Creatinine 1.21 0.700-1.30 mg/dL Glomerular Filtration Rate Calc 80 >90 mL/min BUN/Creatinine Ratio 9.1 L 10.0-20.0 Serum Glucose 92 74-106 mg/dL Calcium Level 11.3 H 8.7-10.4 mg/dL Current Medications Medications (Trade) Dose Ordered Sig/[place] Route Start Time Stop Time Status Last Admin Sodium Chloride 1,000 ml @ 1,000 mls/hr Q1H ONCE IV 12/04/24 08:45 12/04/24 09:44 DC 12/04/24 09:50 Ondansetron HCl (Zofran) 4 mg ONCE ONCE IV 12/04/24 08:45 12/04/24 08:46 DC 12/04/24 10:29 [place] [address] Ph: [phone] DIAGNOSTIC IMAGING Diagnostic Imaging Report : [id number] Signed PATIENT: NADEEN HARRISON IIIACCT: [id number] UNIT: [id number] : 1990 LOC: ER ROOM / BED: / AGE / SEX: 34 / M ADM STATUS: REG ER SERVICE [id number] ORDERING PHYSICIAN: TERRENCE STEVENSON MD PROCEDURE(s): HWOCT - HEAD WITHOUT CONTRAST REASON: ganglia ORDER NUMBER(s): [id number], ACCESSION NUMBER(s): [id number] EXAM: CT HEAD WITHOUT CONTRAST HISTORY: ganglia COMPARISON: CT HEAD WITHOUT CONTRAST on DOS: 10/05/24, CT HEAD WITHOUT CONTRAST on DOS: 05/19/24, CT HEAD WITHOUT CONTRAST on DOS: 11/10/23, HEAD WITHOUT CONTRAST on DOS: 01/26/22, HEAD WITHOUT CONTRAST on DOS: 01/25/22 TECHNIQUE: Noncontrast axial CT images of the head were performed. Sagittal and coronal reformatted images were obtained. This CT exam was performed using 1 or more of the following dose reduction techniques: Automated exposure control, adjustment of the mA and/or kv according to patient size, or the use of iterative reconstruction techniques. Radiation Dose: CTDI volume is 54.79 mGy. Dose-length product is 986.17 mGy*cm FINDINGS: No intracranial hemorrhage, mass, midline shift, hydrocephalus, or evidence of acute large vessel infarct. There are postoperative changes of left occipital craniectomy, left mastoidectomy, and left neck dissection, not fully imaged here. The paranasal sinuses are clear. The bilateral mastoid air cells and middle ear spaces are clear. No cranial fracture or scalp edema. There are multiple dental caries, although the teeth are not fully imaged here. IMPRESSION: 1. No acute intracranial process. 2. Stable postoperative changes of left occipital craniectomy, left mastoidectomy, and left neck dissection. 3. Multiple dental caries. Recommend outpatient dental consultation. ATED BY: JOHANA CORTES MD DICTATED DATE/TIME: 12/04/24905 SIGNED BY: JOHANA CORTES MD SIGNED DATE/TIME: 12/04/24905 CC: Patient alert. Nausea vomiting. Vitals stable. Answering all questions. Moving all extremities pain CT of the head reviewed does not show any acute changes. Establish intravenous access. Was given fluids. Was given Zofran. Reviewed his previous visit. WBC elevated. Possibly infection from his caries. Was given Rocephin. Was given clindamycin. Explained to the patient. Continue monitoring. Time of 1ST Reevaluation: 08:45 Reevaluation 1ST: Unchanged Patient Education/Counseling: Diagnosis, Treatment Family Education/Counseling: No Family Present SEPSIS Sepsis Screen Physician Orders Head Without Contrast (12/04/24 08:35) Vital Signs Date Time Temp Pulse Resp B/P (MAP) Pulse Ox O2 Delivery O2 Flow Rate FiO2 12/04/24 08:18 98.2 84 18 136/74 (94) 99 98.2 Laboratory Tests Test 12/04/24 09:29 White Blood Count 13.3 10^3/uL (4.4-10.8) H Medications Medications Dose Ordered Sig/[place] Route Start Time Stop Time Status Last Admin Dose Admin Ondansetron HCl 4 mg ONCE ONCE IV 12/04/24 08:45 12/04/24 08:46 DC 12/04/24 10:29 Sodium Chloride 1,000 ml @ 1,000 mls/hr Q1H ONCE IV 12/04/24 08:45 12/04/24 09:44 DC 12/04/24 09:50 Departure 1 Departure Time of Disposition: 09:28 Impression: Primary Impression: Intractable vomiting Additional Impression: Caries Disposition: ADMITTED INPATIENT Admit to: Med Surg Condition: Guarded Critical Care Note Critical Care Time?: No Stability Stability form required: No Heart Score Heart Score: Heart Score Response (Comments) Value History N/A 0 EKG N/A 0 Age N/A 0 Risk Factors N/A 0 Troponin N/A 0 Total 0 I personally scribed for TERRENCE STEVENSON MD ([email or web address]) on 12/04/24 at 08:53. Electronically submitted by Angélica Macedo ([email or web address]). I personally scribed for TERRENCE STEVENSON MD ([email or web address]) on 12/04/24 at 09:23. Electronically submitted by Angélica Macedo ([email or web address]). TERRENCE STEVENSON MD Dec 04, 2024 08:53
--- NOTE | 2024-12-04 09:09 | DVH ---
EXAM: CT HEAD WITHOUT CONTRAST HISTORY: ganglia COMPARISON: CT HEAD WITHOUT CONTRAST on DOS: 10/05/24, CT HEAD WITHOUT CONTRAST on DOS: 05/19/24, CT HEA D WITHOUT CONTRAST on DOS: 11/10/23, HEAD WITHOUT CONTRAST on DOS: 01/26/22, HEAD WITHOUT CONTRAST on D OS: 01/25/22 TECHNIQUE: Noncontrast axial CT images of the head were performed. Sagittal and coronal reformatted i mages were obtained. This CT exam was performed using 1 or more of the following dose reduction techn iques: Automated exposure control, adjustment of the mA and/or kv according to patient size, or the u se of iterative reconstruction techniques. Radiation Dose: CTDI volume is 54.79 mGy. Dose-length product is 986.17 mGy*cm FINDINGS: No intracranial hemorrhage, mass, midline shift, hydrocephalus, or evidence of acute large vessel inf arct. There are postoperative changes of left occipital craniectomy, left mastoidectomy, and left nec k dissection, not fully imaged here. The paranasal sinuses are clear. The bilateral mastoid air cell s and middle ear spaces are clear. No cranial fracture or scalp edema. There are multiple dental celio es, although the teeth are not fully imaged here. IMPRESSION: 1. No acute intracranial process. 2. Stable postoperative changes of left occipital craniectomy, left mastoidectomy, and left neck diss ection. 3. Multiple dental caries. Recommend outpatient dental consultation.
[2024-12-04] MEDS: SODIUM CHLORIDE 0.9% 1,000 ML IV ONE ×2 (09:50→11:18)
[2024-12-04 09:58] LABS: Hematocrit 49.4 % (41.0-53.0); Hemoglobin 16.0 g/dL (13.5-17.5); Mean Corpuscular Hemoglobin 28.0 pg (28.0-32.0); Mean Corpuscular Volume 86.4 fL (80.0-100.0); Nucleated Red Blood Cells % 0.1 %
[2024-12-04 10:10] LABS: Anion Gap 14 (5-15); Carbon Dioxide 23 mmol/L (20-31); Chloride 103 mmol/L (98-107); Potassium 4.4 mmol/L (3.5-5.1); Sodium 140 mmol/L (136-145)
[2024-12-04 10:16] LABS: BUN/Creatinine Ratio 9.1 (10.0-20.0); Blood Urea Nitrogen 11 mg/dL (9-23); Calcium 11.3 mg/dL (8.7-10.4); Glucose 92 mg/dL (74-106)
[2024-12-04] MEDS: ONDANSETRON HCL 4 MG/2 ML VIAL IV ONE (10:29)
[2024-12-04] MEDS: CLINDAMYCIN 300MG IV 50 ML IV ONE (11:00)
[2024-12-04] MEDS: cefTRIAXone 1GM/50ML D5W 50 ML IV ONE (11:18)
== END 2024-12-04 11:30 | disposition left against medical advice (07) ==
LOC: EDBD 08:15 → ER 08:18
DX: R11.2 Nausea with vomiting, unspecified (principal); R19.7 Diarrhea, unspecified; K02.9 Dental caries, unspecified; F17.210 Nicotine dependence, cigarettes, uncomplicated; R51.9 Headache, unspecified; Z79.899 Other long term (current) drug therapy; Z88.8 Allergy status to other drugs, medicaments and biological substances
CPT/HCPCS: 36415; 70450; 80048; 85025; 96361; 96374; 96375; 99285; J0696; J2405; J7030; J3490